=== PATIENT | male | born 1940 | race Caucasian/White ===

== ENCOUNTER 2016-10-23 05:44 | Inpatient (IN) | payer MEDICARE ==
--- NOTE | 2016-10-23 06:52 | RADIOLOGY REPORT ---
HISTORY: Fall, right hip pain COMPARISON: None. FINDINGS: 3 views of the right hip(s) and pelvis obtained. There is an oblique fracture of the right distal fem oral diaphysis with lateral displacement by up to 2 cm. There is posterior displacement by up to 1.8 cm. There is a dynamic screw and short intramedullary nail in the proximal right femur. There is like ly an old fracture deformity of the right femoral neck. Multiple phleboliths are noted in the pelvis. There is multilevel degenerative disc disease in the lower lumbar spine. IMPRESSION: 1. Partially imaged distal femoral diaphyseal fracture with lateral displacement x 2 cm and posterior displacement x 1.8 cm. Consider dedicated right femur radiographs for further evaluation. 2. Right proximal femur short intramedullary nail and dynamic screw appear intact. There is an old fr acture deformity of the right femoral neck which decreases sensitivity for acute fractures. No defini te acute right hip fracture is identified but if there is clinical concern for acute fracture, consid er CT pelvis for further evaluation. Final Electronic Signature: This report was electronically signed by Rajat Orellana MD on 10/23/2016 6 :50 AM. [email or web address] /
[2016-10-23 07:14] LABS: BASOPHILS 0.1 % (0.0-2.0); EOSINOPHILS 1.4 % (0.0-6.0); EOSINOPHILS# 0.1 X 10^3uL (0.0-0.4); HEMATOCRIT 38.7 % (42.0-54.0); HEMOGLOBIN 12.9 g/dL (14.0-18.0); LYMPHOCYTES 8.4 % (20.0-40.0); LYMPHOCYTES# 0.8 X 10^3uL (0.8-3.8); MEAN CELL VOLUME 87.4 fL (80.0-100.0); MEAN CORPUS. HGB CONCENTRATION 33.3 g/dL (32.0-36.0); MEAN CORPUSCULAR HEMOGLOBIN 29.1 pg (29.0-35.0); MONOCYTES 6.5 % (2.0-10.0); MONOCYTES# 0.6 X 10^3uL (0.2-1.0); NEUTROPHILS 83.6 % (54.0-75.0); NEUTROPHILS# 8.3 X 10^3uL (2.6-6.7); PLATELET COUNT 373 X 10^3uL (130-440); RED BLOOD COUNT 4.43 X 10^6uL (4.20-6.10); RED CELL DISTRIBUTION WIDTH 12.3 % (11.5-14.5); WHITE BLOOD COUNT 9.8 X 10^3uL (3.9-10.7)
[2016-10-23 07:17] LABS: BLOOD UREA NITROGEN 9 mg/dL (9-20); CALCIUM 8.5 mg/dL (8.4-10.2); CHLORIDE 102 mmol/L (98-107); CREATININE 0.6 mg/dL (0.7-1.3); EST GLOMERULAR FILTRATION RATE > 60 mL/min; GLUCOSE 122 mg/dL (70-100); POTASSIUM 3.4 mmol/L (3.5-5.1); SODIUM 140 mmol/L (137-145)
[2016-10-23 07:25] LABS: INR 1.2
[2016-10-23 08:39] LABS: ABO GROUP TYPE A
[2016-10-23 08:40] LABS: ALBUMIN 3.8 g/dL (3.5-5.0); ALKALINE PHOSPHATASE 86 U/L (38-126); ALT 16 U/L (21-72); ANTIBODY SCREEN NEGATIVE; AST 33 U/L (17-59); BILIRUBIN, DIRECT 0.2 mg/dL (0.0-0.4); BILIRUBIN, TOTAL 1.1 mg/dL (0.2-1.3); RH TYPE POSITIVE; TOTAL PROTEIN 7.9 g/dL (6.3-8.2)
--- NOTE | 2016-10-23 09:00 | RADIOLOGY REPORT ---
HISTORY: Knee pain after fall. COMPARISON: None. FINDINGS: 3 views of the right knee were performed. There is a mildly displaced spiral fracture of the distal right femoral metadiaphysis with mild varus angulation. There is moderate associated soft tissue swelling. There are severe tricompartmental deg enerative changes with subchondral sclerosis, robust osteophyte formation, asymmetric widening and na rrowing. IMPRESSION: Mildly displaced oblique fracture of the distal right femoral metadiaphysis with mild varus angulatio n. Final Electronic Signature: This report was electronically signed by Ge Capps MD on 10/24/19 8:58 AM. paula /
--- NOTE | 2016-10-23 09:03 | RADIOLOGY REPORT ---
HISTORY: Knee pain after fall. COMPARISON: None. FINDINGS: 2 views of the right femur were performed. There is a mildly displaced fracture of the distal right femoral metadiaphysis with approximately 2 c m of impaction and mild varus angulation. There is moderate associated soft tissue swelling. There is an intramedullary nader in the proximal right femur with associated postsurgical/posttraumatic changes in the intertrochanteric region. The bony pelvis is intact. The soft tissues appear unremarkable. IMPRESSION: Mildly displaced, impacted acute fracture of the right femoral distal metadiaphysis with mild associ ated varus angulation. Final Electronic Signature: This report was electronically signed by Ge Capps MD on 10/24/19 17 9:01 AM. paula /
[2016-10-23] MEDS ORDERED: BACITRACIN 50,000 UNITS VIAL IM ONE ×2 (10:35→15:27)
[2016-10-23] MEDS ORDERED: BUPIVACAINE/EPI 0.25% 1 VIAL VIAL ONE (10:35)
[2016-10-23] MEDS ORDERED: BACITRACIN 14 APP/14 GM TUBE TOPICAL ONE (10:36)
[2016-10-23] MEDS ORDERED: NORMAL SALINE FLUSH 10 ML ONE (10:36)
[2016-10-23] MEDS ORDERED: ACETAMINOPHEN 1,000 MG/100 ML VIAL IV ONE (11:17)
--- NOTE | 2016-10-23 11:20 | PREOP HISTORY & PHYSICAL ---
DATE OF ADMISSION: 10/23/16 ATTENDING PHYS: Rosemary Carrillo MD DATE OF ADMISSION: 10/23/16 PRIMARY CARE PHYSICIAN: Jackie Rayo MD CHIEF COMPLAINT: Femur fracture. Medicine consulted for preoperative clearance. HISTORY OF PRESENT ILLNESS: The patient is a 76-year-old gentleman who has not been seen in our clinic for about a year, with history of hypertension, remote cerebrovascular accident with subsequent right-sided weakness, who was in his usual state of health until this morningg when he fell out of bed and could not get back up. The patient typically uses a wheelchair for ambulation. He states that he was in between his wheelchair and the bed trying to transfer when he fell to the ground and was kind of lodged there. He had some pain but nothing significant, but mainly could not get up so he used his life line and ambulance brought him in for further evaluation. Found to have femur fracture. Of note, the patient again has not been seen for over a year in our clinic and over the past 3-6 months he has stopped his home blood pressure medications. The patient states he had been tapering down on the medicines due to low blood pressure, but his insurance, there were some concerns and he stopped having delivery of medications to his home about 3-6 months ago. The patients blood pressure was noted to be quite elevated when he first arrived here to the emergency department. PAST MEDICAL HISTORY: 1. 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 At baseline he needs a wheelchair for mobility. 2. Hypertension. 3. Chronic venous insufficiency. 4. History of peptic ulcer related to aspirin usage. 5. Rheumatoid arthritis. 6. Osteoarthritis. 7. He does have a history previously of chronic venous stasis ulcers although this does not look like to be of concern for the last few years. FAMILY HISTORY: The patients father at age 77 related to intestinal cancer. His mother at age 62 related to cervical cancer. He does have a son who was in his 40s. SOCIAL HISTORY: The patient is . He does live alone. He moves around his house by wheelchair. He is a former smoker. He quit in 1998 after his stroke. He also states he is a former alcohol user, again quit around the time of his stroke, although chart notes dates that he was drinking hard liquor. ALLERGIES: Aspirin related to past history of gastric ulcer on aspirin. Not true allergy. PAST SURGICAL HISTORY: Includes 1. Hip replacement related to a right hip fracture in 2005. 2. Tonsillectomy. MEDICATIONS: Currently the patient is only taking Tylenol 1000 mg every 6 hours. He has stopped all of his blood pressure medications. REVIEW OF SYSTEMS GENERAL: The patient denies any fever, fatigue, no significant symptoms to cause the fall. HEENT: He denies headache. No other injuries. No nasal congestion, no sore throat. NECK: No pain. CARDIOVASCULAR: The patient denies any chest pain. He does have elevated blood pressure off medications. No palpitations. RESPIRATORY: He denies any cough or shortness of breath. ABDOMEN: Denies any nausea or vomiting, abdominal pain. MUSCULOSKELETAL: Positive for right-sided injury with pain and deformity. SKIN: The patient states his swelling is much improved from previous. No significant rashes at this time. NEUROLOGIC: The patient is at baseline with his right sided weakness but no altered mentation. PSYCHIATRIC: The patient denies any anxiety or depression. HEMATOLOGIC: The patient has had a past history of anemia. Again, no recent labs for over a year ago besides today. PHYSICAL EXAMINATION VITAL SIGNS: The patient was afebrile, temperature of 98.2, blood pressure 165/ 92, pulse of 96, respirations were 20, 92% on room air. His blood pressure did go up to 200s/100s and then 181/93. On recheck most recently, however, his blood pressure was 141/87. GENERAL: The patient is alert and oriented. Appears comfortable in bed. Kind of awkward positioning, but no acute distress. HEENT: Conjunctiva normal. Equal ocular movements. Mouth is clear. He has poor dentition. NECK: Appears supple. Nontender. CARDIOVASCULAR: Regular rate and rhythm. LUNGS: Normal breath sounds. ABDOMEN: Bowel sounds are normal, soft, nontender. MUSCULOSKELETAL: The patient has obvious joint deformities related to underlying rheumatoid arthritis in the left wrist and MCPs on the hand are significantly deformed including bilateral knees with some change in appearance. He has tenderness and fullness to the right distal thigh. SKIN: The patient had bilateral DAO hose. Did not fully assess his feet. NEUROLOGIC: He has baseline numbness on right side but can feel light touch as well as weakness on that right side. PSYCHIATRIC: The patient is alert and oriented times 3. He is calm. He is very reasonable with discussions regarding plan of care. LABORATORY DATA: The patient has had a CBC which showed white count of 9.8, hemoglobin 12.9, hematocrit 39.8. He does not have a recent CBC to compare. INR was 1.2. Basic metabolic panel: Sodium 140, potassium 3.4, chloride 102, carbon dioxide 28, glucose 122, BUN 9, creatinine 0.6, calcium 8.5. He is A positive blood type, anti body negative. Hepatic panel shows ALT of 16, albumin 3.8, alkaline phosphatase 86, AST 33, total bilirubin 1.1, direct bilirubin 0.2. IMAGING: He had a hip/pelvis x-ray which showed partially imaged femoral diaphyseal fracture with lateral displacement. Right proximal femur short intramedullary nail and dynamic screw appears intact. Old fracture of right femoral neck. A mildly displaced fracture of the distal right femoral metadiaphysis with mild varus angulation. Femur fracture again similar. EKG: Shows normal sinus rhythm with a left axis deviation. I do not see any others in the system for comparison. ASSESSMENT AND PLAN: This is a 76-year-old patient with history of uncontrolled hypertension and remote cerebrovascular accident, osteo and rheumatoid arthritis, who is presenting with a right femur fracture. 1. Femur fracture: Per orthopedics, the patients plan of care would either be surgical intervention versus long leg cast. I did speak personally with Dr. Bean relaying my concerns as the patient is high risk for surgery including high risk for surgery at our facility related to his previous history and underlying rheumatological disease/previous hip fx/replacement and his current uncontrolled hypertension. I do anticipate with his past medical history that he potentially have some complications related to surgery and may need a more prolonged rehabilitation especially related to his underlying right-sided weakness. 2. Hypertension: The patient was previously on Lisinopril, hydrochlorothiazide , amlodipine and metoprolol which he has self discontinued over the last 3-6 months partially because he had been weaning medication for low blood pressure but as well as he has lost his insurance and was no longer being delivered to his home. Blood pressure was elevated initially and has come down to a more normal level at this time. Would recommend close monitoring of blood pressure and treating if noticing return of elevations. Patient will likely need his previous medications restarted in postoperative time. In past patient was on metoloprolol 100 mg twice a day. Could start with just 25 to 50 mg twice a day. The patient may need additional medications including his lisinopril and hydrochlorothiazide and amlodipine. With his past history of hemorrhagic stroke and his elevated blood pressure he is at an increased risk of potential recurrent cerebrovascular incident, currently asymptomatic right now but will need close monitoring. 3. History of CVA: Again this is a hemorrhagic stroke in 1998. He had subsequent right-sided weakness and numbness. The patient typically ambulates with a wheelchair. He does live alone in his home. Will likely have a complicated postoperative and rehab related to this baseline mobility concerns. Will need to closely monitor his anticoagulation postoperative and DVT prophylaxis postoperatively with his past history of hemorrhagic stroke. 4. Osteoarthritis and rheumatoid arthritis: The patient has multiple joint deformities related to his underlying arthritic areas. With this rheumatologic issue concern for potential healing and other concerns related to surgery. Again, do feel the patient is pretty high risk. Currently he is being managed with 4 g of Tylenol daily for pain control. Will need to monitor what his pain needs are per orthopedics. 5. History of peptic ulcer related to high aspirin dose: This has been over 10 years ago at this time. Would continue to avoid NSAIDs if able. 6. Anemia: The patient slightly anemic likely related to acute femur fracture. Do not have a recent CBC to compare. The patient has had a blood transfusion in the past related to his peptic ulcer and would be willing to have transfusion if needed. 7. Slightly elevated INR: Still within normal limits but unclear why it is 1.2. Likely related to his regular Tylenol usage and past alcohol intake, although LFTs are normal at this time. 8. Disposition: Again I have discussed with the patient and orthopedics as well as anesthesia my concerns for the patient to have surgery at our facility and I do feel he is somewhat high risk. The patient is full code. If surgery is done at our facility I do anticipate he will need ongoing blood pressure monitoring and potentially restarting of medications as well as he is going to need a probable prolonged rehabilitation stay related to his baseline right- sided weakness as well as rheumatoid arthritis. Copy to MD ANGELIKA Greenwood
[2016-10-23] MEDS ORDERED: ceFAZolin 1 GM/10 ML VIAL ONE ×4 (11:28→22:00)
[2016-10-23] MEDS ORDERED: EPHEDrine SULFATE 50 MG/ML VIAL ONE (11:29)
[2016-10-23] MEDS ORDERED: NORMAL SALINE 100 ML IV ONE (11:29)
[2016-10-23] MEDS ORDERED: MORPHINE SULFATE/PF 10 MG/10 ML VIAL ONE (11:29)
[2016-10-23] MEDS ORDERED: FENTANYL 100 MCG/2 ML VIAL ONE (11:29)
[2016-10-23] MEDS ORDERED: LABETALOL HCL 100 MG/20 ML VIAL IV ONE (11:30)
--- NOTE | 2016-10-23 11:30 | ER PHYSICIAN DOCUMENTATION ---
Physician Documentation [facility] Name:Josse Cantu Age:76 yrs Sex:Male :1940 Arrival Date:10/23/2016 Time:05:44 Bed4 Private MD:Jackie Rayo ED, John Disposition: 10/23/16 10:45 Admit ordered for Mohit Bean. Preliminary diagnosis is Femur Closed Fracture. - Bed requested for Medical/Surgical. - Condition is Serious. - Problem is new. - Symptoms are unchanged. 23 HR OBS Yes HPI: 10/23 07:00 This 76 yrs old Male presents to ER via EMS with complaints of Hip Pain - jm RIGHT. 07:00 This 76 yrs old Male presents to ER via EMS with complaints of Hip Pain - jm RIGHT. 07:00 The patient or guardian reports an injury, pain. sustained from a fall, out of bed. The jm complaints affect the right hip. Onset: The symptom(s)/episode began/occurred just prior to arrival. Modifying factors: the symptoms are aggravated by nothing. Associated signs and symptoms: Pertinent negatives: abdominal pain. Severity of symptoms: in the emergency department the symptoms are unchanged. The patient has not experienced similar symptoms in the past. The patient has not recently seen a physician. Pt fell out of bed and couldn't get back up, so he hit his life line and EMS brought him here. . Historical: - Allergies: No known drug Allergies; - Home Meds: 1. None - PMHx: Hypertension; stroke; - PSHx: Hip surgery; - Tetanus: < 10 years. - Ebola Screening: : Patient denies exposure to infectious person. Patient denies travel to an Ebola-affected area in the 21 days before illness onset. . - Immunization history: Flu Vaccine None. - Social history: Smoking status: Patient states was never smoker of tobacco. Patient/guardian denies using alcohol. ROS: 07:04 Constitutional: Negative for fatigue, fever. jm 07:04 ENT: Negative for sinus congestion, sinus pain. 07:04 Neck: Negative for injury or acute deformity. 07:04 Cardiovascular: Negative for chest pain. 07:04 Respiratory: Negative for cough, shortness of breath. 07:04 Abdomen/GI: Negative for nausea, vomiting. 07:04 MS/extremity: Positive for injury or acute deformity, pain. 07:04 Skin: Negative for rash, swelling. 07:04 Neuro: Negative for dizziness, loss of consciousness. 07:04 Psych: Negative for anxiety, depression. 07:04 Hematologic/Lymphatic: Negative for anemia, abnormal bleeding. Exam: 07:05 Constitutional: The patient appears alert, awake. cam 07:05 Eyes: Periorbital structures: appear normal, Conjunctiva: normal. 07:05 ENT: Mouth: is normal, Voice: is normal. 07:05 Neck: C-spine: appears grossly normal, ROM/movement: is normal. 07:05 Chest/axilla: Inspection: normal, Palpation: is normal, no crepitus. 07:05 Cardiovascular: Rate: normal, Rhythm: regular. 07:05 Respiratory: Respirations: normal, Breath sounds: are normal. 07:05 Abdomen/GI: Bowel sounds: normal, Palpation: abdomen is soft and non-tender. 07:05 Back: pain, is absent, vertebral tenderness, is not appreciated. 07:05 Musculoskeletal/extremity: Pulses: are normal with no appreciated deficits, fullness to the R distal thigh. Pulses normal. . 07:05 Skin: Appearance: Color: pink, no rash present. 07:05 Neuro: Sensation: numbness, that is moderate, of the right leg. 07:05 Psych: Behavior/mood is pleasant, cooperative, Affect is calm. Vital Signs: 06:02 BP 165 / 92; Pulse 96; Resp 20; Temp 98.2; Pulse Ox 93% on R/A; Pain 0/10; lb 07:10 BP 181 / 93 (auto/); Pulse 90; Resp 15; Pulse Ox 91% on R/A; Pain 1/10; tg 09:10 BP 141 / 87; Pulse 84; Resp 16; Pulse Ox 91% on R/A; tg 11:10 BP 140 / 85; Pulse 82; Resp 16; Pulse Ox 91% on R/A; Weight 90.72 kg; Height 6 ft. 0 sj in. (182.88 cm); Pain 1/10; 11:11 BP 140 / 85 (auto/); tg 11:14 Pulse Ox 93% ; tg 11:10 Body Mass Index 27.12 (90.72 kg, 182.88 cm) MDM: 06:17 Patient medically screened. cam 07:10 Differential diagnosis: femoral shaft fracture. Data reviewed: vital signs, nurses jm notes, old medical records, lab test result(s), EKG, radiologic studies, and as a result, I will admit patient, initiate a consult, with an orthopedic surgeon. Test interpretation: by ED physician or midlevel provider: plain radiologic studies. Counseling: I had a detailed discussion with the patient and/or guardian regarding: the historical points, exam findings, and any diagnostic results supporting the discharge/admit diagnosis, lab results, radiology results, the need for further work-up and treatment in the hospital. Physician consultation: Mohit Bean DO regarding admission, and will see patient in ED. ED course: Pt w distal femur fx. . 09:19 EKG attached tg 10/23 07:23 Order name: CBC AUTO DIF, MDIF/RMOR IF IND [facility] 10/23 07:27 Order name: PROTIME/INR [facility] 10/23 07:43 Order name: BASIC METABOLIC PANEL [facility] 10/23 08:40 Order name: ABO GROUP [facility] 10/23 08:40 Order name: RH TYPE [facility] 10/23 08:40 Order name: ANTIBODY SCREEN [facility] 10/23 08:41 Order name: HEPATIC PANEL [facility] 10/24 06:40 Order name: HGB HCT PANEL [facility] 10/24 06:40 Order name: PLATELET COUNT [facility] 10/24 17:20 Order name: CBC AUTO DIF, MDIF/RMOR IF IND [facility] 10/25 04:42 Order name: OCCULT BLOOD (1-3 SAMPLES) [facility] 10/25 06:20 Order name: HGB HCT PANEL [facility] 10/23 06:55 Order name: HIP; UNI W/PE[place] [address] [place] [id number] [facility] 10/23 08:33 Order name: FEMUR; [address] [place] [id number] [facility] 10/23 08:42 Order name: KNEE; [address] [place] [id number] [facility] 10/23 07:00 Order name: Iv Saline Lock; Complete Time: 07:20 10/23 07:00 Order name: 12-lead EKG; Complete Time: 07:33 10/23 07:00 Order name: NPO; Complete Time: 07:20 Dispensed Medications: 07:24 Drug: NS 0.9% 1000 ml; Route: IV; Rate: bolus; Site: left antecubital; tg 11:27 Follow up: IV Status: Infusion continued upon admission; IV Intake: 500ml tg 11:10 Drug: Ofirmev ; MAX of 1000 mg, give 20 mg/kg; Route: IV; Rate: calculated rate; sj Infused Over: 15 mins; Site: left antecubital; Follow up: IV Status: Completed infusion; IV Intake: 100ml tg 11: Drug: NS 0.9% 100 ml, Ancef 1 grams; Route: IVPB; Site: left antecubital; Delivery: tg Pump; Follow up: IV Status: Infusion continued upon admission; IV Intake: 10ml tg Signatures: Arturo Albetro RN RN tg Ke Farrell MD MD jm Janzen, Sarah sj Bollock, Lynda lb
--- NOTE | 2016-10-23 11:30 | ER NURSING DOCUMENTATION ---
Nurse's Notes [facility] Name:Josse Cantu Age:76 yrs Sex:Male :1940 Arrival Date:10/23/2016 Time:05:44 Bed4 Private MD:Jackie Rayo Diagnosis:Femur Closed Fracture Presentation: 10/23 05:56 Presenting complaint: EMS states: pt fell out of bed, c/o right hip pain. lb 05:56 Acuity: RAFAEL 3 lb 05:59 Transition of care: Home. Notified ED Physician of Bud Geronimo notified. lb 05:59 Method Of Arrival: EMS: 410 lb 08:52 Acuity: RAAFEL 2 tg Triage Assessment: 06:01 General: Appears in no apparent distress, unkempt, Behavior is appropriate for age, lb pleasant. Pain: Denies pain. Historical: - Allergies: No known drug Allergies; - Home Meds: 1. None - PMHx: Hypertension; stroke; - PSHx: Hip surgery; - Tetanus: < 10 years. - Ebola Screening: : Patient denies exposure to infectious person. Patient denies travel to an Ebola-affected area in the 21 days before illness onset. . - Immunization history: Flu Vaccine None. - Social history: Smoking status: Patient states was never smoker of tobacco. Patient/guardian denies using alcohol. Screenin:02 Infectious Disease Risk None. Abuse screen: Denies threats or abuse. Denies injuries lb from another. Nutritional screening: No deficits noted. Fall Risk Fall in past 12 months (25 points). Gait- Impaired (20 pts.). Assessment: 06:02 See Triage Assessment done by same RN. lb Vital Signs: 06:02 BP 165 / 92; Pulse 96; Resp 20; Temp 98.2; Pulse Ox 93% on R/A; Pain 0/10; lb 07:10 BP 181 / 93 (auto/); Pulse 90; Resp 15; Pulse Ox 91% on R/A; Pain 1/10; tg 09:10 BP 141 / 87; Pulse 84; Resp 16; Pulse Ox 91% on R/A; tg 11:10 BP 140 / 85; Pulse 82; Resp 16; Pulse Ox 91% on R/A; Weight 90.72 kg; Height 6 ft. 0 sj in. (182.88 cm); Pain 1/10; 11:11 BP 140 / 85 (auto/); tg 11:14 Pulse Ox 93% ; tg 11:10 Body Mass Index 27.12 (90.72 kg, 182.88 cm) ED Course: 05:45 Patient arrived in ED. em2 05:45 Jackie Rayo MD is Private Physician. em2 05:56 Allison Orona is Primary Nurse. lb 05:58 Triage completed. lb 06:03 Valuables Remains with patient Patient has correct armband on for positive lb identification. Placed in gown. Bed in low position. Call light in reach. Side rails up X2. 06:17 Ke Farrell MD is Attending Physician. jm 06:34 Port Xray Completed. ds2 07:01 Inserted peripheral IV: 20 gauge in left forearm and blood collected. lb 07:33 Diet: Patient is NPO. tg 07:33 EKG done. (by ED staff). Reviewed by Ke Farrell MD. tg 08:33 FEMUR; [address] [place] [id number] In Process Unspecified. EDMS 08:42 KNEE; [address] [place] [id number] In Process Unspecified. EDMS 08:43 Port Xray Completed. marcus 09:19 EKG attached tg 10:43 Mohit Bean DO is Admitting Physician. cam Administered Medications: 07:24 Drug: NS 0.9% 1000 ml; Route: IV; Rate: bolus; Site: left antecubital; tg 11:27 Follow up: IV Status: Infusion continued upon admission; IV Intake: 500ml tg 11:10 Drug: Ofirmev ; MAX of 1000 mg, give 20 mg/kg; Route: IV; Rate: calculated rate; Infused Over: 15 mins; Site: left antecubital; 11:27 Follow up: IV Status: Completed infusion; IV Intake: 100ml tg 11:28 Drug: NS 0.9% 100 ml, Ancef 1 grams; Route: IVPB; Site: left antecubital; Delivery: tg Pump; 11:28 Follow up: IV Status: Infusion continued upon admission; IV Intake: 10ml tg Intake: 11:27 IV: 500ml; Total: 500ml. tg 11:27 IV: 100ml; Total: 600ml. tg 11:28 IV: 10ml; Total: 610ml. tg Output: 07:56 Urine: 500ml (Voided); Total: 500ml. tg 11:14 Urine: 250ml (Voided); Total: 750ml. Outcome: 10:45 Decision to Admit by Provider. cam 11:14 Admitted to OR accompanied by nurse, via stretcher, with chart. tg 11:14 Condition: unchanged 11:14 Discharge Assessment: Patient awake and alert. 11:14 Instructed on need to admit 11:29 Patient left the ED. tg Signatures: Dispatcher [employer] EDArturo Olson RN RN tg Ke Farrell MD MD jm Abbott, Laura lea Meinking-hanna, Ary em2 Shana Barrientos2 Minoo Miranda, Allison corral
[2016-10-23] MEDS ORDERED: TETRACAINE HCL 1% 20 MG/2 ML AMP ONE (11:35)
[2016-10-23] MEDS ORDERED: FENTANYL 100 MCG/2 ML VIAL IV PRN (16:12)
[2016-10-23] MEDS ORDERED: DIPHENHYDRAMINE 50 MG/ML VIAL IV PRN (16:12)
[2016-10-23] MEDS ORDERED: ONDANSETRON HCL 4 MG/2 ML VIAL IV PRN ×2 (16:12→17:37)
[2016-10-23] MEDS ORDERED: NALOXONE HCL 0.4 MG/ML VIAL IV PRN ×3 (16:12)
[2016-10-23] MEDS ORDERED: NALBUPHINE HCL 10 MG/ML AMP IV PRN (16:12)
[2016-10-23] MEDS ORDERED: LACTATED RINGERS 1,000 ML IV SCH (16:12)
[2016-10-23] MEDS ORDERED: DIPHENHYDRAMINE 25 MG CAPSULE PO PRN (16:12)
[2016-10-23] MEDS ORDERED: HYDROcodone/APAP 5/325 MG 1 TAB TABLET PO PRN (17:37)
[2016-10-23] MEDS: ASCORBIC ACID 500 MG TABLET PO SCH ×2 (20:26→20:42)
[2016-10-23] MEDS: MULTIVITAMINS THERAPEUTIC 1 TABLET PO SCH (20:26)
[2016-10-23] MEDS: FOLIC ACID 1 MG TABLET PO SCH (20:26)
[2016-10-23] MEDS: ceFAZolin 1 GM in NORMAL SALINE MINI-BAG+ 100 ML IV SCH (21:58)
[2016-10-23] MEDS ORDERED: ceFAZolin 1 GM in NORMAL SALINE MINI-BAG+ 100 ML IV SCH (23:00)
[2016-10-23] MEDS: LACTATED RINGERS 1,000 ML IV SCH (23:46)
[2016-10-24] MEDS: ceFAZolin 1 GM in NORMAL SALINE MINI-BAG+ 100 ML IV SCH ×2 (05:05→14:11)
[2016-10-24] MEDS ORDERED: ceFAZolin 1 GM/10 ML VIAL ONE ×2 (05:13→14:20)
[2016-10-24] MEDS ORDERED: NORMAL SALINE 100 ML IV ONE ×2 (05:13→14:20)
[2016-10-24 06:22] LABS: HEMATOCRIT 23.2 % (42.0-54.0)
--- NOTE | 2016-10-24 07:45 | OPERATIVE REPORT ---
DATE OF SURGERY: 10/23/16 SURGEON: Mohit Bean DO ANESTHESIA: Spinal. PREOPERATIVE DIAGNOSIS: Right distal femur supracondylar fracture. POSTOPERATIVE DIAGNOSIS: Right distal femur supracondylar fracture. OPERATION PERFORMED: Right femur open reduction, internal fixation. ESTIMATED BLOOD LOSS: 500 mL. COMPLICATIONS: None. ORTHOPEDIC IMPLANT: Synthes 1.7 mm cable with crimp and a 4.5 mm LCP condylar plate. PROCEDURE NOTE: The patient was brought to the operating room suite and after administration of spinal anesthesia the right lower extremity was prepped and draped in a sterile fashion. An incision was made over the lateral aspect of the distal femur and dissection was carried down to the iliotibial band which was incised. Any bleeders were cauterized with a large cautery device. The fracture was identified and the plate was slid up on the femur and was positioned distally with orthogonal views obtained with fluoroscopic imaging to assure proper placement of the plate down the lateral long axis of the femur. The 7.3 mm screw was inserted first after first inserting spinal needles through threaded guides. Five K-wires were inserted through these threaded guides, followed by insertion of the 5-0 and the 7.3 mm screws in the condyle. Again, fluoroscopic imaging was confirmed to assure that the screws were parallel with the distal femur at the joint line. The plate was then used to attempt to reduce the fracture with Vabruche retractors; however, this was unsuccessful, therefore a small incision was made proximally and a plate manipulation device was inserted with 1 single cortices screw proximal to the plate, and it was attempted to push the plate distally to reduce the fracture; however, this was not successful. Therefore, a cable system was utilized to reduce the fracture site while pushing the plate through the proximal hole distally. The cerclage cable was tightened down and reduced the fracture. The plate was then secured into place with both locking and non-locking screws after first drilling and measuring the depth. The incision sites were copiously irrigated with bacitracin infused with normal saline and closed in a stepwise fashion utilizing #1 Vicryl for the IT band, followed by 0 Vicryl, followed by 2 -0 Vicryl, followed by genoveva at the level of the skin. The incision site was also injected with 0.25% bupivacaine with epinephrine prior to incision and was dressed with bacitracin MTDD
[2016-10-24] MEDS: FOLIC ACID 1 MG TABLET PO SCH (08:39)
[2016-10-24] MEDS: ACETAMINOPHEN 325 MG TABLET PO PRN ×2 (08:39→14:11)
[2016-10-24] MEDS: ASCORBIC ACID 500 MG TABLET PO SCH ×2 (08:39→20:38)
[2016-10-24] MEDS: MULTIVITAMINS THERAPEUTIC 1 TABLET PO SCH (08:39)
--- NOTE | 2016-10-24 10:37 | PROGRESS NOTE: Orthopedics ---
Orthopedic PN Subjective - Subjective Principal Diagnosis: s/p right femur orif Post-op Day: 1 Interval history: Resting. Pain controlled. Ortho PN Objective Exam - Latest Vital Signs and I&O Latest Vital Signs/I&O: Vital Signs Temp 37.9 C H 10/24/16 06:19 Pulse 104 H 10/24/16 06:19 Resp 18 10/24/16 09:00 BP 118/64 10/24/16 06:19 Pulse Ox 96 10/24/16 09:00 Intake & Output 10/23/16 10/24/16 10/24/16 17:59 05:59 17:59 Intake Total 2650 3450 Output Total 300 550 Balance 2350 2900 Weight 86.183 kg Intake: IV 2600 1900 Left Antecubital 2600 1900 Oral 50 1550 Output: Urine 300 550 Uretheral (Donaldson) 100 Other: Urine Appearance Clear Clear Clear Urine Color Yellow [place] Yellow Uretheral (Donaldson) Yellow Voiding Method Indwelling Catheter Indwelling Catheter Indwelling Catheter # Bowel Movements 0 - Post-Operative Exam Post-op Day: 1 Dressing Status: dry & intact Distal Pulses: +2 Active Motor: intact Sensation: other (at baseline) Dayami's sign: Negative Calf tenderness: no Weight bearing status: partial (for transfer balance) - Lab Labs: Laboratory Last Values WBC 9.8 X 10^3uL (3.9-10.7) 10/23/16 07:00 RBC 4.43 X 10^6uL (4.20-6.10) 10/23/16 07:00 Hgb 8.0 g/dL (14.0-18.0) L 10/24/16 05:55 Hct 23.2 % (42.0-54.0) L 10/24/16 05:55 MCV 87.4 fL (80.0-100.0) 10/23/16 07:00 MCH 29.1 pg (29.0-35.0) 10/23/16 07:00 MCHC 33.3 g/dL (32.0-36.0) 10/23/16 07:00 RDW 12.3 % (11.5-14.5) 10/23/16 07:00 Plt Count 294 X 10^3uL (130-440) 10/24/16 05:55 MPV 6.0 fL (7.4-10.4) L 10/23/16 07:00 Neutrophils % 83.6 % (54.0-75.0) H 10/23/16 07:00 Lymphocytes % 8.4 % (20.0-40.0) L 10/23/16 07:00 Eosinophils % 1.4 % (0.0-6.0) 10/23/16 07:00 Basophils % 0.1 % (0.0-2.0) 10/23/16 07:00 Neutrophils # 8.3 X 10^3uL (2.6-6.7) H 10/23/16 07:00 Lymphocytes # 0.8 X 10^3uL (0.8-3.8) 10/23/16 07:00 Monocytes 6.5 % (2.0-10.0) 10/23/16 07:00 Monocytes # 0.6 X 10^3uL (0.2-1.0) 10/23/16 07:00 Eosinophils # 0.1 X 10^3uL (0.0-0.4) 10/23/16 07:00 Basophils # 0.0 X 10^3uL (0.0-0.1) 10/23/16 07:00 PT 16.9 sec (13.0-16.6) H 10/23/16 07:00 INR 1.2 10/23/16 07:00 Sodium 140 mmol/L (137-145) 10/23/16 07:00 Potassium 3.4 mmol/L (3.5-5.1) L 10/23/16 07:00 Chloride 102 mmol/L (98-107) 10/23/16 07:00 Carbon Dioxide 28 mmol/L (22-30) 10/23/16 07:00 BUN 9 mg/dL (9-20) 10/23/16 07:00 Creatinine 0.6 mg/dL (0.7-1.3) L 10/23/16 07:00 GFR Calculation > 60 mL/min 10/23/16 07:00 Glucose 122 mg/dL (70-100) H 10/23/16 07:00 Calcium 8.5 mg/dL (8.4-10.2) 10/23/16 07:00 Total Bilirubin 1.1 mg/dL (0.2-1.3) 10/23/16 07:00 Direct Bilirubin 0.2 mg/dL (0.0-0.4) 10/23/16 07:00 AST 33 U/L (17-59) 10/23/16 07:00 ALT 16 U/L (21-72) L 10/23/16 07:00 Alkaline Phosphatase 86 U/L (38-126) 10/23/16 07:00 Total Protein 7.9 g/dL (6.3-8.2) 10/23/16 07:00 Albumin 3.8 g/dL (3.5-5.0) 10/23/16 07:00 ABO Group Type a 10/23/16 07:00 Rh Factor Positive 10/23/16 07:00 Antibody Screen Negative 10/23/16 07:00 Assessment and Plan-Ortho - Date of Encounter Date of Encounter: 10/24/16 (1) Supracondylar fracture of right femur Status: Acute Assessment and plan: Will get H&H for later today. If significant drop, I would recommend transfusion. Nutrition. DVT PPx. Medicine following. Current Visit: Yes Quality Questions - VTE Prophylaxis Assessment VTE Present on Admission?: No Patient at risk for venous thromboembolism?: Yes VTE Risk Level: High Risk Pharmaceutical VTE prophylaxis contraindication reason: not indicated Mechanical VTE prophylaxis contraindication reason: not indicated (1) Supracondylar fracture of right femur Qualifiers: Encounter type: initial encounter Fracture type: closed Qualified Code(s): S72.451A - Displaced supracondylar fracture without intracondylar extension of lower end of right femur, initial encounter for closed fracture
[2016-10-24] MEDS: ENOXAPARIN SODIUM 40 MG/0.4 ML SYR SUBCUT SCH (13:35)
[2016-10-24] MEDS: LACTATED RINGERS 1,000 ML IV SCH (14:11)
[2016-10-24 17:17] LABS: BASOPHILS 0.1 % (0.0-2.0); EOSINOPHILS 0.2 % (0.0-6.0); HEMOGLOBIN 7.9 g/dL (14.0-18.0); LYMPHOCYTES 8.1 % (20.0-40.0); LYMPHOCYTES# 0.9 X 10^3uL (0.8-3.8); MEAN CORPUS. HGB CONCENTRATION 35.7 g/dL (32.0-36.0); MEAN CORPUSCULAR HEMOGLOBIN 30.7 pg (29.0-35.0); MEAN PLATELET VOLUME 5.6 fL (7.4-10.4); MONOCYTES 11.4 % (2.0-10.0); MONOCYTES# 1.3 X 10^3uL (0.2-1.0); NEUTROPHILS 80.2 % (54.0-75.0); NEUTROPHILS# 9.2 X 10^3uL (2.6-6.7); RED BLOOD COUNT 2.56 X 10^6uL (4.20-6.10); RED CELL DISTRIBUTION WIDTH 12.6 % (11.5-14.5); WHITE BLOOD COUNT 11.4 X 10^3uL (3.9-10.7)
[2016-10-25 06:14] LABS: HEMATOCRIT 23.3 % (42.0-54.0); HEMOGLOBIN 7.8 g/dL (14.0-18.0)
[2016-10-25] MEDS: LACTATED RINGERS 1,000 ML IV SCH ×2 (07:03→16:43)
[2016-10-25] MEDS: ASCORBIC ACID 500 MG TABLET PO SCH ×2 (08:28→20:56)
[2016-10-25] MEDS: FOLIC ACID 1 MG TABLET PO SCH (08:28)
[2016-10-25] MEDS: ENOXAPARIN SODIUM 40 MG/0.4 ML SYR SUBCUT SCH (08:29)
[2016-10-25] MEDS: MULTIVITAMINS THERAPEUTIC 1 TABLET PO SCH (08:29)
[2016-10-25] MEDS: ACETAMINOPHEN 325 MG TABLET PO PRN (08:29)
--- NOTE | 2016-10-25 19:13 | PROGRESS NOTE: Orthopedics ---
Orthopedic PN Subjective - Subjective Principal Diagnosis: s/p right femur orif Post-op Day: 2 Interval history: Resting comfortably. T-max noted: likely atelectasis. Pain controlled. Seems a little weak, but patient is not ambulatory, so based on upper extremity motion. Ortho PN Objective Exam - Latest Vital Signs and I&O Latest Vital Signs/I&O: Vital Signs Temp 37.8 C H 10/25/16 18:53 Pulse 79 10/25/16 18:16 Resp 24 10/25/16 18:16 BP 121/54 10/25/16 18:16 Pulse Ox 91 10/25/16 18:16 Intake & Output 10/25/16 10/25/16 10/26/16 05:59 17:59 05:59 Intake Total 1440 950 900 Output Total 325 350 Balance 1115 600 900 Intake: IV 1050 900 Left Antecubital 1050 900 Oral 390 950 Output: Urine 325 350 Other: Urine Appearance Clear Clear Urine Color Light Ina Straw Stool Size Small Moderate Stool Characteristics Soft Soft Liquid Liquid Brown Voiding Method Indwelling Catheter Indwelling Catheter # Bowel Movements 2 - Post-Operative Exam Post-op Day: 2 Dressing Status: dry & intact Drainage Amount: none Distal Pulses: +2 Active Motor: intact Sensation: other (at baseline.) Dayami's sign: Negative Calf tenderness: no Weight bearing status: partial (for transfer balance) Additional Exam: Needs toe/nail care with multiple very long nails. - Lab Labs: Laboratory Last Values WBC 11.4 X 10^3uL (3.9-10.7) H 10/24/16 17:00 RBC 2.56 X 10^6uL (4.20-6.10) L 10/24/16 17:00 Hgb 7.8 g/dL (14.0-18.0) L 10/25/16 06:00 Hct 23.3 % (42.0-54.0) L 10/25/16 06:00 MCV 86.0 fL (80.0-100.0) 10/24/16 17:00 MCH 30.7 pg (29.0-35.0) 10/24/16 17:00 MCHC 35.7 g/dL (32.0-36.0) 10/24/16 17:00 RDW 12.6 % (11.5-14.5) 10/24/16 17:00 Plt Count 308 X 10^3uL (130-440) 10/24/16 17:00 MPV 5.6 fL (7.4-10.4) L 10/24/16 17:00 Neutrophils % 80.2 % (54.0-75.0) H 10/24/16 17:00 Lymphocytes % 8.1 % (20.0-40.0) L 10/24/16 17:00 Eosinophils % 0.2 % (0.0-6.0) 10/24/16 17:00 Basophils % 0.1 % (0.0-2.0) 10/24/16 17:00 Neutrophils # 9.2 X 10^3uL (2.6-6.7) H 10/24/16 17:00 Lymphocytes # 0.9 X 10^3uL (0.8-3.8) 10/24/16 17:00 Monocytes 11.4 % (2.0-10.0) H 10/24/16 17:00 Monocytes # 1.3 X 10^3uL (0.2-1.0) H 10/24/16 17:00 Eosinophils # 0.0 X 10^3uL (0.0-0.4) 10/24/16 17:00 Basophils # 0.0 X 10^3uL (0.0-0.1) 10/24/16 17:00 PT 16.9 sec (13.0-16.6) H 10/23/16 07:00 INR 1.2 10/23/16 07:00 Sodium 140 mmol/L (137-145) 10/23/16 07:00 Potassium 3.4 mmol/L (3.5-5.1) L 10/23/16 07:00 Chloride 102 mmol/L (98-107) 10/23/16 07:00 Carbon Dioxide 28 mmol/L (22-30) 10/23/16 07:00 BUN 9 mg/dL (9-20) 10/23/16 07:00 Creatinine 0.6 mg/dL (0.7-1.3) L 10/23/16 07:00 GFR Calculation > 60 mL/min 10/23/16 07:00 Glucose 122 mg/dL (70-100) H 10/23/16 07:00 Calcium 8.5 mg/dL (8.4-10.2) 10/23/16 07:00 Total Bilirubin 1.1 mg/dL (0.2-1.3) 10/23/16 07:00 Direct Bilirubin 0.2 mg/dL (0.0-0.4) 10/23/16 07:00 AST 33 U/L (17-59) 10/23/16 07:00 ALT 16 U/L (21-72) L 10/23/16 07:00 Alkaline Phosphatase 86 U/L (38-126) 10/23/16 07:00 Total Protein 7.9 g/dL (6.3-8.2) 10/23/16 07:00 Albumin 3.8 g/dL (3.5-5.0) 10/23/16 07:00 ABO Group Type a 10/23/16 07:00 Rh Factor Positive 10/23/16 07:00 Antibody Screen Negative 10/23/16 07:00 Assessment and Plan-Ortho - Date of Encounter Date of Encounter: 10/25/16 (1) Supracondylar fracture of right femur Status: Acute Assessment and plan: Transfusion 2PRBCs Nutrition. DVT PPx. Podiatry consult ordered. Encourage IS for atelectasis. Current Visit: Yes (1) Supracondylar fracture of right femur Qualifiers: Encounter type: initial encounter Fracture type: closed Qualified Code(s): S72.451A - Displaced supracondylar fracture without intracondylar extension of lower end of right femur, initial encounter for closed fracture
[2016-10-25] MEDS ORDERED: NORMAL SALINE 500 ML IV ONE (19:35)
[2016-10-25] MEDS ORDERED: ACETAMINOPHEN 325 MG TABLET PO PRN (20:00)
[2016-10-26] MEDS ORDERED: FUROSEMIDE 20 MG/2 ML VIAL IV ONE (02:30)
[2016-10-26 06:16] LABS: HEMATOCRIT 28.7 % (42.0-54.0); HEMOGLOBIN 9.2 g/dL (14.0-18.0)
[2016-10-26] MEDS: ACETAMINOPHEN 325 MG TABLET PO PRN (08:41)
[2016-10-26] MEDS: MULTIVITAMINS THERAPEUTIC 1 TABLET PO SCH (08:41)
[2016-10-26] MEDS: ENOXAPARIN SODIUM 40 MG/0.4 ML SYR SUBCUT SCH (08:41)
[2016-10-26] MEDS: ASCORBIC ACID 500 MG TABLET PO SCH ×2 (08:42→20:27)
[2016-10-26] MEDS: FOLIC ACID 1 MG TABLET PO SCH (08:42)
[2016-10-26 16:57] LABS: A/G RATIO 0.8; ALBUMIN 2.9 g/dL (3.5-5.0); BILIRUBIN, TOTAL 2.5 mg/dL (0.2-1.3); BLOOD UREA NITROGEN 13 mg/dL (9-20); CALCIUM 7.6 mg/dL (8.4-10.2); CREATININE 0.6 mg/dL (0.7-1.3); EST GLOMERULAR FILTRATION RATE > 60 mL/min; GLUCOSE 87 mg/dL (70-100); POTASSIUM 3.5 mmol/L (3.5-5.1); SODIUM 136 mmol/L (137-145); TOTAL PROTEIN 6.4 g/dL (6.3-8.2)
[2016-10-26 17:07] LABS: MAGNESIUM 2.1 mg/dL (1.6-2.3)
[2016-10-26 17:16] LABS: ALKALINE PHOSPHATASE 56 U/L (38-126); ALT 56 U/L (21-72); AST 132 U/L (17-59); CHLORIDE 101 mmol/L (98-107)
--- NOTE | 2016-10-26 17:28 | PROGRESS NOTE: Orthopedics ---
Orthopedic PN Subjective - Subjective Principal Diagnosis: s/p right femurORIF Post-op Day: 2 Interval history: Irregular pulse and PVCs. 12 lead obtained. Pt asymptomatic @ cardiac. Ortho PN Objective Exam - Latest Vital Signs and I&O Latest Vital Signs/I&O: Vital Signs Temp 37.2 C 10/26/16 15:00 Pulse 85 10/26/16 16:19 Resp 24 10/26/16 15:00 BP 113/56 10/26/16 15:00 Pulse Ox 90 10/26/16 15:00 Intake & Output 10/25/16 10/26/16 10/26/16 17:59 05:59 17:59 Intake Total 950 2855 Output Total 350 1100 Balance 600 1755 Intake: IV 2200 Left Antecubital 2200 Oral 950 325 Blood Product 330 Output: Urine 350 1100 Other: Urine Appearance Clear Clear Clear Urine Color Straw Light Ina Light Ina Stool Size Moderate Moderate Stool Characteristics Soft Soft Liquid Liquid Voiding Method Indwelling Catheter Indwelling Catheter Indwelling Catheter # Bowel Movements 2 0 - Post-Operative Exam Post-op Day: 2 Dressing Status: changed Drainage Amount: none Distal Pulses: +2 Active Motor: intact Sensation: other (at baseline.) Dayami's sign: Negative Calf tenderness: no Weight bearing status: partial (for transfer balance) - Lab Labs: Laboratory Last Values WBC 11.4 X 10^3uL (3.9-10.7) H 10/24/16 17:00 RBC 2.56 X 10^6uL (4.20-6.10) L 10/24/16 17:00 Hgb 9.2 g/dL (14.0-18.0) L 10/26/16 06:00 Hct 28.7 % (42.0-54.0) L 10/26/16 06:00 MCV 86.0 fL (80.0-100.0) 10/24/16 17:00 MCH 30.7 pg (29.0-35.0) 10/24/16 17:00 MCHC 35.7 g/dL (32.0-36.0) 10/24/16 17:00 RDW 12.6 % (11.5-14.5) 10/24/16 17:00 Plt Count 308 X 10^3uL (130-440) 10/24/16 17:00 MPV 5.6 fL (7.4-10.4) L 10/24/16 17:00 Neutrophils % 80.2 % (54.0-75.0) H 10/24/16 17:00 Lymphocytes % 8.1 % (20.0-40.0) L 10/24/16 17:00 Eosinophils % 0.2 % (0.0-6.0) 10/24/16 17:00 Basophils % 0.1 % (0.0-2.0) 10/24/16 17:00 Neutrophils # 9.2 X 10^3uL (2.6-6.7) H 10/24/16 17:00 Lymphocytes # 0.9 X 10^3uL (0.8-3.8) 10/24/16 17:00 Monocytes 11.4 % (2.0-10.0) H 10/24/16 17:00 Monocytes # 1.3 X 10^3uL (0.2-1.0) H 10/24/16 17:00 Eosinophils # 0.0 X 10^3uL (0.0-0.4) 10/24/16 17:00 Basophils # 0.0 X 10^3uL (0.0-0.1) 10/24/16 17:00 PT 16.9 sec (13.0-16.6) H 10/23/16 07:00 INR 1.2 10/23/16 07:00 Sodium 136 mmol/L (137-145) L 10/26/16 16:45 Potassium 3.5 mmol/L (3.5-5.1) 10/26/16 16:45 Chloride 101 mmol/L (98-107) 10/26/16 16:45 Carbon Dioxide 27 mmol/L (22-30) 10/26/16 16:45 BUN 13 mg/dL (9-20) 10/26/16 16:45 Creatinine 0.6 mg/dL (0.7-1.3) L 10/26/16 16:45 GFR Calculation > 60 mL/min 10/26/16 16:45 Glucose 87 mg/dL (70-100) 10/26/16 16:45 Calcium 7.6 mg/dL (8.4-10.2) L 10/26/16 16:45 Magnesium 2.1 mg/dL (1.6-2.3) 10/26/16 16:45 Total Bilirubin 2.5 mg/dL (0.2-1.3) H D 10/26/16 16:45 Direct Bilirubin 0.2 mg/dL (0.0-0.4) 10/23/16 07:00 AST 132 U/L (17-59) H 10/26/16 16:45 ALT 56 U/L (21-72) 10/26/16 16:45 Alkaline Phosphatase 56 U/L (38-126) 10/26/16 16:45 Total Protein 6.4 g/dL (6.3-8.2) 10/26/16 16:45 Albumin 2.9 g/dL (3.5-5.0) L D 10/26/16 16:45 Albumin/Globulin Ratio 0.8 10/26/16 16:45 ABO Group Type a 10/23/16 07:00 Rh Factor Positive 10/23/16 07:00 Antibody Screen Negative 10/23/16 07:00 Crossmatch Compatible 10/25/16 19:15 - Allied Health Notes Allied health notes reviewed: nursing Assessment and Plan-Ortho - Date of Encounter Date of Encounter: 10/26/16 (1) Supracondylar fracture of right femur Status: Acute Assessment and plan: 2PRBCs transfused Nutrition. DVT PPx. Encourage IS for atelectasis. Medicine to follow cardiac work up. Ortho stable. Current Visit: Yes (1) Supracondylar fracture of right femur Qualifiers: Encounter type: initial encounter Fracture type: closed Qualified Code(s): S72.451A - Displaced supracondylar fracture without intracondylar extension of lower end of right femur, initial encounter for closed fracture
--- NOTE | 2016-10-26 18:48 | PROGRESS NOTE: IM APSO ---
Assessment and Plan - Date of Encounter Date of Encounter: 10/26/16 (1) Supracondylar fracture of right femur Status: Acute Assessment and plan: S/P ORIF on 10/23- managed by orthopedics Current Visit: Yes (2) PVC (premature ventricular contraction) Status: Acute Assessment and plan: New issue noted today. Electrolytes ordered with K of 3.5 and slight sodium drop to 126. Has been on LR since surgery- will change maint fluid to NS with 20KCl. EKG demonstrating PVCs in bigeminy but telemetry is not showing consistent frequency at this time. Will reorder electrolytes and TSH in morning and ask cardiology to help evaluate patient. He was on metoprolol in past but self stopped as bps had been low and ran out of medication- may need to restart low dose. With blood pressures in the 90s-100s systolic however I was hesitant to start tonight. Monitor on telemetry through evening for any changes Current Visit: Yes (3) History of CVA (cerebrovascular accident) Status: Chronic Assessment and plan: Baseline mobility is limited- wheel chair and home bound. Has not been out of bed since surgery. Do anticipate need for prolonged rehabilitation, likely PPLC when stable Current Visit: Yes (4) Right hemiparesis Status: Chronic Assessment and plan: Hemiparesis and numbness- did have femur fracture with ORIF repair. Pain is good control at this time. Anticipate prolonged need for rehab. Current Visit: Yes (5) Hypertension Status: Chronic Assessment and plan: Patient self discontinued medications 3-6 months ago due to low blood pressures and ran out of home delivery of medications. Did have elevation initial prior to surgery but values have been low since. Not on any medications at this time but previously was on triple drug regimen. Continue to monitor and appreciate cardiology recommendations. Current Visit: Yes (6) Rheumatoid arthritis Status: Chronic Assessment and plan: Multiple joint deformities. currently pain managed with acetaminophen. Will contribute to prolonged rehabilitation Current Visit: Yes - Time Spent With Patient Total time spent with greater than 50% in coordination of care (as documented) at patient's floor/unit and/or counseling patient: Greater than 35 minutes Estimated anticipated discharge: will need further rehab IM: PN Subjective Interval history: Asked to reconsult on patient by orthopedics today as he was noted to be having frequent PVCs. Patient states he is feeling well, better energy after his blood transfusion. has not been out of bed yet but admits he was not ambulatory pre injury/surgery. He has not noted any chest pain/shortness of breath. Does not feel the skipped heart beats (even after being told of the irregularity). Cant recall prior history of irregularity in heart beat (has been off his bp meds which included a beta waldemar for 3-6 months however related to low blood pressures) General: fatigue, no pain HEENT: no headache Cardiovascular: no chest pain, no chest pressure, no palpitations, no dizziness (has not been out of bed) Respiratory: no SOB Gastrointestinal: no abdominal pain, no nausea, no diarrhea (but looser stools than normal) Genitourinary: other (moffett), no flank pain Musculoskeletal: pain, weakness (baseline) Neurological: numbness (baseline on right), limb weakness (baseline on right, but also weakness on left due to deconditioning) IM: PN Objective Exam - I&O/Vital Signs I&O: Intake & Output 10/26/16 10/26/16 10/26/16 05:59 13:59 21:59 Intake Total 1955 480 Output Total 1100 300 Balance 855 180 Intake: IV 1300 Left Antecubital 1300 Oral 325 480 Blood Product 330 Output: Urine 1100 300 Other: Urine Appearance Clear Clear Clear Urine Color Light Ina Light Ina Light Ina Stool Size Moderate Moderate Stool Characteristics Soft Liquid Liquid Brown Voiding Method Indwelling Catheter Indwelling Catheter Indwelling Catheter # Bowel Movements 0 1 Vital Signs: Last Vital Signs Temp 37.2 C 10/26/16 15:00 Pulse 85 10/26/16 16:19 Resp 24 10/26/16 15:00 BP 113/56 10/26/16 15:00 Pulse Ox 90 10/26/16 15:00 Oxygen Flow Rate 1.5 Oxygen Delivery Method Nasal Cannula - Constitutional General appearance: Present: average body habitus, cooperative. Absent: acute distress - Head Head exam: Present: atraumatic, normal inspection - Eye Eye exam: Absent: conjunctival injection - ENT ENT exam: Present: mucous membranes moist, normal oropharynx (minimal dentition) - Neck Neck exam: Present: normal inspection. Absent: tenderness - Respiratory Respiratory exam: Present: CTAB. Absent: accessory muscle use - Cardiovascular Cardiovascular exam: Present: irregular rhythm (intermittent irregularities noted associated to PVCs on monitor), S1, S2 - GI/Abdominal GI/Abdominal exam: Present: soft. Absent: tenderness - Extremities Exam Extremities exam: Present: other (right leg not fully examined as ortho evaluated patient today). Absent: calf tenderness, edema - Neurological Exam Neurological exam: Present: alert, oriented X3 - Psychiatric Psychiatric exam: Present: normal affect, normal mood, other - Allied Health Notes Allied health notes reviewed: case management, nursing - Lab Labs: Laboratory Last Values WBC 11.4 X 10^3uL (3.9-10.7) H 10/24/16 17:00 RBC 2.56 X 10^6uL (4.20-6.10) L 10/24/16 17:00 Hgb 9.2 g/dL (14.0-18.0) L 10/26/16 06:00 Hct 28.7 % (42.0-54.0) L 10/26/16 06:00 MCV 86.0 fL (80.0-100.0) 10/24/16 17:00 MCH 30.7 pg (29.0-35.0) 10/24/16 17:00 MCHC 35.7 g/dL (32.0-36.0) 10/24/16 17:00 RDW 12.6 % (11.5-14.5) 10/24/16 17:00 Plt Count 308 X 10^3uL (130-440) 10/24/16 17:00 MPV 5.6 fL (7.4-10.4) L 10/24/16 17:00 Neutrophils % 80.2 % (54.0-75.0) H 10/24/16 17:00 Lymphocytes % 8.1 % (20.0-40.0) L 10/24/16 17:00 Eosinophils % 0.2 % (0.0-6.0) 10/24/16 17:00 Basophils % 0.1 % (0.0-2.0) 10/24/16 17:00 Neutrophils # 9.2 X 10^3uL (2.6-6.7) H 10/24/16 17:00 Lymphocytes # 0.9 X 10^3uL (0.8-3.8) 10/24/16 17:00 Monocytes 11.4 % (2.0-10.0) H 10/24/16 17:00 Monocytes # 1.3 X 10^3uL (0.2-1.0) H 10/24/16 17:00 Eosinophils # 0.0 X 10^3uL (0.0-0.4) 10/24/16 17:00 Basophils # 0.0 X 10^3uL (0.0-0.1) 10/24/16 17:00 PT 16.9 sec (13.0-16.6) H 10/23/16 07:00 INR 1.2 10/23/16 07:00 Sodium 136 mmol/L (137-145) L 10/26/16 16:45 Potassium 3.5 mmol/L (3.5-5.1) 10/26/16 16:45 Chloride 101 mmol/L (98-107) 10/26/16 16:45 Carbon Dioxide 27 mmol/L (22-30) 10/26/16 16:45 BUN 13 mg/dL (9-20) 10/26/16 16:45 Creatinine 0.6 mg/dL (0.7-1.3) L 10/26/16 16:45 GFR Calculation > 60 mL/min 10/26/16 16:45 Glucose 87 mg/dL (70-100) 10/26/16 16:45 Calcium 7.6 mg/dL (8.4-10.2) L 10/26/16 16:45 Magnesium 2.1 mg/dL (1.6-2.3) 10/26/16 16:45 Total Bilirubin 2.5 mg/dL (0.2-1.3) H D 10/26/16 16:45 Direct Bilirubin 0.2 mg/dL (0.0-0.4) 10/23/16 07:00 AST 132 U/L (17-59) H 10/26/16 16:45 ALT 56 U/L (21-72) 10/26/16 16:45 Alkaline Phosphatase 56 U/L (38-126) 10/26/16 16:45 Total Protein 6.4 g/dL (6.3-8.2) 10/26/16 16:45 Albumin 2.9 g/dL (3.5-5.0) L D 10/26/16 16:45 Albumin/Globulin Ratio 0.8 10/26/16 16:45 ABO Group Type a 10/23/16 07:00 Rh Factor Positive 10/23/16 07:00 Antibody Screen Negative 10/23/16 07:00 Crossmatch Compatible 10/25/16 19:15 Quality Questions - VTE Prophylaxis Assessment VTE Present on Admission?: No Patient at risk for venous thromboembolism?: Yes VTE Risk Level: High Risk Pharmaceutical VTE prophylaxis contraindication reason: N/A- VTE prophylaxsis ordered Mechanical VTE prophylaxis contraindication reason: N/A- VTE prophylaxsis ordered (1) Supracondylar fracture of right femur Qualifiers: Encounter type: initial encounter Fracture type: closed Qualified Code(s): S72.451A - Displaced supracondylar fracture without intracondylar extension of lower end of right femur, initial encounter for closed fracture
[2016-10-27] MEDS: POTASSIUM CHLORIDE/NS 1,000 ML IV SCH ×2 (03:34→20:21)
[2016-10-27 05:33] LABS: EOSINOPHILS# 0.4 X 10^3uL (0.0-0.4); MEAN CELL VOLUME 87.4 fL (80.0-100.0); MEAN PLATELET VOLUME 6.8 fL (7.4-10.4); RED BLOOD COUNT 2.94 X 10^6uL (4.20-6.10); RED CELL DISTRIBUTION WIDTH 12.5 % (11.5-14.5)
[2016-10-27 05:44] LABS: A/G RATIO 0.8; ALBUMIN 2.6 g/dL (3.5-5.0); ALKALINE PHOSPHATASE 54 U/L (38-126); ALT 78 U/L (21-72); AST 137 U/L (17-59); BILIRUBIN, TOTAL 1.9 mg/dL (0.2-1.3); BLOOD UREA NITROGEN 11 mg/dL (9-20); CHLORIDE 102 mmol/L (98-107); CREATININE 0.6 mg/dL (0.7-1.3); EST GLOMERULAR FILTRATION RATE > 60 mL/min; GLUCOSE 101 mg/dL (70-100); POTASSIUM 3.4 mmol/L (3.5-5.1); SODIUM 137 mmol/L (137-145)
[2016-10-27 05:46] LABS: BASOPHILS 0.6 % (0.0-2.0); EOSINOPHILS 5.5 % (0.0-6.0); HEMATOCRIT 25.7 % (42.0-54.0); HEMOGLOBIN 8.6 g/dL (14.0-18.0); LYMPHOCYTES 12.4 % (20.0-40.0); LYMPHOCYTES# 0.9 X 10^3uL (0.8-3.8); MEAN CORPUS. HGB CONCENTRATION 33.6 g/dL (32.0-36.0); MEAN CORPUSCULAR HEMOGLOBIN 29.4 pg (29.0-35.0); MONOCYTES 6.9 % (2.0-10.0); MONOCYTES# 0.5 X 10^3uL (0.2-1.0); NEUTROPHILS 74.6 % (54.0-75.0); NEUTROPHILS# 5.5 X 10^3uL (2.6-6.7); PLATELET COUNT 265 X 10^3uL (130-440); WHITE BLOOD COUNT 7.3 X 10^3uL (3.9-10.7)
[2016-10-27 06:14] LABS: THYROID STIMULATING HORMONE 1.77 uIU/mL (0.47-4.68)
[2016-10-27 06:15] LABS: CALCIUM 7.5 mg/dL (8.4-10.2)
[2016-10-27 08:45] LABS: INR 1.4
--- NOTE | 2016-10-27 08:57 | PROGRESS NOTE: IM SOAP ---
IM: PN Subjective General: fatigue, no good appetite, no pain (He is not even using much of the Tylenol now. ), no fever, no chills HEENT: no headache Cardiovascular: no chest pain, no chest pressure, no palpitations, no dizziness (has not been out of bed) Respiratory: no cough, no SOB Gastrointestinal: no abdominal pain, no nausea, no vomiting, no diarrhea (but looser stools than normal) Genitourinary: other (Donaldson in place.), no flank pain Musculoskeletal: weakness (He is at his baseline.), no pain (Minimal to no pain of LLE. ) Integumentary: other (Small, superficial eschar L anterior vickers) Neurological: numbness (Baseline on right s/p CVA. ), limb weakness (Baseline on right, but also weakness on left due to deconditioning) IM: PN Objective Exam - I&O/Vital Signs I&O: Intake & Output 10/26/16 10/27/16 10/27/16 21:59 05:59 13:59 Intake Total 480 2320 Output Total 300 350 Balance 180 1970 Intake: IV 1120 Left Antecubital 1120 Oral 480 1200 Output: Urine 300 350 Other: Urine Appearance Clear Clear Urine Color Light Ina Light Ina Stool Size Moderate Stool Characteristics Liquid Brown Voiding Method Indwelling Catheter Indwelling Catheter # Bowel Movements 1 0 Vital Signs: Last Vital Signs Temp 37.4 C 10/27/16 06:30 Pulse 61 10/27/16 06:30 Resp 22 10/27/16 06:30 BP 110/56 10/27/16 06:30 Pulse Ox 92 10/27/16 06:30 Oxygen Flow Rate 1.5 Oxygen Delivery Method Nasal Cannula - Constitutional General appearance: Present: average body habitus, cooperative. Absent: acute distress - Head Head exam: Present: atraumatic, normal inspection - Eye Eye exam: Present: EOMI, PERRL. Absent: conjunctival injection - ENT ENT exam: Present: mucous membranes moist - Neck Neck exam: Present: normal inspection. Absent: tenderness - Respiratory Respiratory exam: Present: rales (Bibasilar rales. ). Absent: accessory muscle use, respiratory distress, wheezes - Cardiovascular Cardiovascular exam: Present: RRR (Minimal ectopy. ). Absent: systolic murmur - GI/Abdominal GI/Abdominal exam: Present: normal bowel sounds, soft. Absent: mass, organomegaly, tenderness - Extremities Exam Extremities exam: Present: edema (RLE 1+. LLE no edema. Chroninc venous stasis changes, L>R. Better than baseline. ), other. Absent: calf tenderness - Neurological Exam Neurological exam: Present: alert, oriented X3 - Psychiatric Psychiatric exam: Present: normal affect, normal mood - Allied Health Notes Allied health notes reviewed: case management, nursing, PT - Lab Labs: Laboratory Last Values WBC 7.3 X 10^3uL (3.9-10.7) 10/27/16 05:25 RBC 2.94 X 10^6uL (4.20-6.10) L 10/27/16 05:25 Hgb 8.6 g/dL (14.0-18.0) L 10/27/16 05:25 Hct 25.7 % (42.0-54.0) L 10/27/16 05:25 MCV 87.4 fL (80.0-100.0) 10/27/16 05:25 MCH 29.4 pg (29.0-35.0) 10/27/16 05:25 MCHC 33.6 g/dL (32.0-36.0) 10/27/16 05:25 RDW 12.5 % (11.5-14.5) 10/27/16 05:25 Plt Count 265 X 10^3uL (130-440) 10/27/16 05:25 MPV 6.8 fL (7.4-10.4) L 10/27/16 05:25 Neutrophils % 74.6 % (54.0-75.0) 10/27/16 05:25 Lymphocytes % 12.4 % (20.0-40.0) L 10/27/16 05:25 Eosinophils % 5.5 % (0.0-6.0) 10/27/16 05:25 Basophils % 0.6 % (0.0-2.0) 10/27/16 05:25 Neutrophils # 5.5 X 10^3uL (2.6-6.7) 10/27/16 05:25 Lymphocytes # 0.9 X 10^3uL (0.8-3.8) 10/27/16 05:25 Monocytes 6.9 % (2.0-10.0) 10/27/16 05:25 Monocytes # 0.5 X 10^3uL (0.2-1.0) 10/27/16 05:25 Eosinophils # 0.4 X 10^3uL (0.0-0.4) 10/27/16 05:25 Basophils # 0.0 X 10^3uL (0.0-0.1) 10/27/16 05:25 PT 18.5 sec (13.0-16.6) H 10/27/16 05:25 INR 1.4 10/27/16 05:25 PTT 68 sec (24-38) H 10/27/16 05:25 Sodium 137 mmol/L (137-145) 10/27/16 05:25 Potassium 3.4 mmol/L (3.5-5.1) L 10/27/16 05:25 Chloride 102 mmol/L (98-107) 10/27/16 05:25 Carbon Dioxide 28 mmol/L (22-30) 10/27/16 05:25 BUN 11 mg/dL (9-20) 10/27/16 05:25 Creatinine 0.6 mg/dL (0.7-1.3) L 10/27/16 05:25 GFR Calculation > 60 mL/min 10/27/16 05:25 Glucose 101 mg/dL (70-100) H 10/27/16 05:25 Calcium 7.5 mg/dL (8.4-10.2) L 10/27/16 05:25 Phosphorus 2.5 mg/dL (2.5-4.5) 10/27/16 05:25 Magnesium 2.0 mg/dL (1.6-2.3) 10/27/16 05:25 Total Bilirubin 1.9 mg/dL (0.2-1.3) H 10/27/16 05:25 Direct Bilirubin 0.2 mg/dL (0.0-0.4) 10/23/16 07:00 AST 137 U/L (17-59) H 10/27/16 05:25 ALT 78 U/L (21-72) H 10/27/16 05:25 Alkaline Phosphatase 54 U/L (38-126) 10/27/16 05:25 Total Protein 6.0 g/dL (6.3-8.2) L 10/27/16 05:25 Albumin 2.6 g/dL (3.5-5.0) L 10/27/16 05:25 Albumin/Globulin Ratio 0.8 10/27/16 05:25 TSH 1.77 uIU/mL (0.47-4.68) 10/27/16 05:25 ABO Group Type a 10/23/16 07:00 Rh Factor Positive 10/23/16 07:00 Antibody Screen Negative 10/23/16 07:00 Crossmatch Compatible 10/25/16 19:15 Assessment and Plan - Date of Encounter Date of Encounter: 10/27/16 (1) Supracondylar fracture of right femur Status: Acute Assessment and plan: I have d/w PT, SW, and nursing staff. Given Josse's prior CVA with R weakness and use of wheelchair, he would probably benefit from rehabilitation at [facility] to meet his many needs. His goal is to return home. I am concerned that he would not be able to leave [facility]. Appreciate Dr. Bean's care. Continue PT and OT here. He has many medical issues and will not be ready for transition to swing bed vs. outside rehabilitation facility for 1-2 days. Current Visit: Yes (2) Anemia Status: Acute Assessment and plan: He is s/p 2 units pBCs. Check iron studies, B12, folate. Heme neg x 1. He may need an additional 2 units. Follow closely. Current Visit: Yes (3) History of CVA (cerebrovascular accident) Status: Chronic Assessment and plan: Remote with R sided weakness. He uses a wheelchair for mobility. Goal to return home to live independently. Begin BASA as outpatient. No ASA now given anemia. On Lovenox s/o orthopedic surgery. Current Visit: Yes (4) PVC (premature ventricular contraction) Status: Acute Assessment and plan: EKG without ischemic changes. Appreciate Di Capone's input. Low-dose B waldemar. Echocardiogram today. Current Visit: Yes (5) Hypertension Status: Chronic Assessment and plan: He had been off of BP medications for several months at home. BP elevated on admission and on the low-side now. Low-dose B waldemar started today per Dr. Capone. Current Visit: Yes (6) Abnormal LFTs (liver function tests) Status: Acute Assessment and plan: Unclear etiology. Normal LFTs on admission. No abdominal pain, N/V. Check abdominal U/S. Current Visit: Yes (7) Rheumatoid arthritis Status: Chronic Assessment and plan: Chronic and remarkably stable. Current Visit: Yes (8) Right hemiparesis Status: Chronic Assessment and plan: S/P CVA. Stable. Current Visit: Yes - Time Spent With Patient Total time spent with greater than 50% in coordination of care (as documented) at patient's floor/unit and/or counseling patient: 16-24 minutes Estimated anticipated discharge: 1-3 days Quality Questions - VTE Prophylaxis Assessment VTE Present on Admission?: No Patient at risk for venous thromboembolism?: Yes VTE Risk Level: High Risk Pharmaceutical VTE prophylaxis contraindication reason: N/A- VTE prophylaxsis ordered Mechanical VTE prophylaxis contraindication reason: N/A- VTE prophylaxsis ordered (1) Supracondylar fracture of right femur Qualifiers: Encounter type: initial encounter Fracture type: closed Qualified Code(s): S72.451A - Displaced supracondylar fracture without intracondylar extension of lower end of right femur, initial encounter for closed fracture (2) Anemia Qualifiers: Anemia type: unspecified type Qualified Code(s): D64.9 - Anemia, unspecified (5) Hypertension Qualifiers: Hypertension type: essential hypertension Qualified Code(s): I10 - Essential (primary) hypertension
[2016-10-27] MEDS ORDERED: POTASSIUM CHLORIDE ER 20 MEQ TABLET PO SCH (09:00)
[2016-10-27] MEDS: ENOXAPARIN SODIUM 40 MG/0.4 ML SYR SUBCUT SCH (10:01)
[2016-10-27] MEDS: ASCORBIC ACID 500 MG TABLET PO SCH ×2 (10:01→20:07)
[2016-10-27] MEDS: MULTIVITAMINS THERAPEUTIC 1 TABLET PO SCH (10:02)
[2016-10-27] MEDS: FOLIC ACID 1 MG TABLET PO SCH (10:02)
[2016-10-27] MEDS: metoprolol SUCC ER 25 MG TABLET PO SCH (10:08)
--- NOTE | 2016-10-27 11:06 | PROGRESS NOTE: Orthopedics ---
Orthopedic PN Subjective - Subjective Principal Diagnosis: s/p femur ORIF Post-op Day: 3 Interval history: Comfortable. No pain. Receiving Echo cardiogram today. Ortho PN Objective Exam - Latest Vital Signs and I&O Latest Vital Signs/I&O: Vital Signs Temp 37.4 C 10/27/16 06:30 Pulse 61 10/27/16 06:30 Resp 22 10/27/16 09:00 BP 110/56 10/27/16 06:30 Pulse Ox 92 10/27/16 09:00 Intake & Output 10/26/16 10/27/16 10/27/16 17:59 05:59 17:59 Intake Total 480 2320 Output Total 300 350 Balance 180 1970 Intake: IV 1120 Left Antecubital 1120 Oral 480 1200 Output: Urine 300 350 Other: Urine Appearance Clear Clear Clear Urine Color Light Ina Light Ina Light Ina Stool Size Moderate Moderate Moderate Stool Characteristics Liquid Liquid Liquid Brown Brown Brown Voiding Method Indwelling Catheter Indwelling Catheter Indwelling Catheter # Bowel Movements 1 0 - Post-Operative Exam Post-op Day: 3 Incision: Present: clean and dry Dressing Status: dry & intact Drainage Amount: none Distal Pulses: +2 Active Motor: intact Sensation: other (at baseline.) Dayami's sign: Negative Calf tenderness: no Weight bearing status: partial (for transfer balance) Additional Exam: Incision well approximated. No erythema. - Lab Labs: Laboratory Last Values WBC 7.3 X 10^3uL (3.9-10.7) 10/27/16 05:25 RBC 2.94 X 10^6uL (4.20-6.10) L 10/27/16 05:25 Hgb 8.6 g/dL (14.0-18.0) L 10/27/16 05:25 Hct 25.7 % (42.0-54.0) L 10/27/16 05:25 MCV 87.4 fL (80.0-100.0) 10/27/16 05:25 MCH 29.4 pg (29.0-35.0) 10/27/16 05:25 MCHC 33.6 g/dL (32.0-36.0) 10/27/16 05:25 RDW 12.5 % (11.5-14.5) 10/27/16 05:25 Plt Count 265 X 10^3uL (130-440) 10/27/16 05:25 MPV 6.8 fL (7.4-10.4) L 10/27/16 05:25 Neutrophils % 74.6 % (54.0-75.0) 10/27/16 05:25 Lymphocytes % 12.4 % (20.0-40.0) L 10/27/16 05:25 Eosinophils % 5.5 % (0.0-6.0) 10/27/16 05:25 Basophils % 0.6 % (0.0-2.0) 10/27/16 05:25 Neutrophils # 5.5 X 10^3uL (2.6-6.7) 10/27/16 05:25 Lymphocytes # 0.9 X 10^3uL (0.8-3.8) 10/27/16 05:25 Monocytes 6.9 % (2.0-10.0) 10/27/16 05:25 Monocytes # 0.5 X 10^3uL (0.2-1.0) 10/27/16 05:25 Eosinophils # 0.4 X 10^3uL (0.0-0.4) 10/27/16 05:25 Basophils # 0.0 X 10^3uL (0.0-0.1) 10/27/16 05:25 PT 18.5 sec (13.0-16.6) H 10/27/16 05:25 INR 1.4 10/27/16 05:25 PTT 68 sec (24-38) H 10/27/16 05:25 Sodium 137 mmol/L (137-145) 10/27/16 05:25 Potassium 3.4 mmol/L (3.5-5.1) L 10/27/16 05:25 Chloride 102 mmol/L (98-107) 10/27/16 05:25 Carbon Dioxide 28 mmol/L (22-30) 10/27/16 05:25 BUN 11 mg/dL (9-20) 10/27/16 05:25 Creatinine 0.6 mg/dL (0.7-1.3) L 10/27/16 05:25 GFR Calculation > 60 mL/min 10/27/16 05:25 Glucose 101 mg/dL (70-100) H 10/27/16 05:25 Calcium 7.5 mg/dL (8.4-10.2) L 10/27/16 05:25 Phosphorus 2.5 mg/dL (2.5-4.5) 10/27/16 05:25 Magnesium 2.0 mg/dL (1.6-2.3) 10/27/16 05:25 Total Bilirubin 1.9 mg/dL (0.2-1.3) H 10/27/16 05:25 Direct Bilirubin 0.2 mg/dL (0.0-0.4) 10/23/16 07:00 AST 137 U/L (17-59) H 10/27/16 05:25 ALT 78 U/L (21-72) H 10/27/16 05:25 Alkaline Phosphatase 54 U/L (38-126) 10/27/16 05:25 Total Protein 6.0 g/dL (6.3-8.2) L 10/27/16 05:25 Albumin 2.6 g/dL (3.5-5.0) L 10/27/16 05:25 Albumin/Globulin Ratio 0.8 10/27/16 05:25 TSH 1.77 uIU/mL (0.47-4.68) 10/27/16 05:25 ABO Group Type a 10/23/16 07:00 Rh Factor Positive 10/23/16 07:00 Antibody Screen Negative 10/23/16 07:00 Crossmatch Compatible 10/25/16 19:15 - Allied Health Notes Allied health notes reviewed: nursing Assessment and Plan-Ortho - Date of Encounter Date of Encounter: 10/27/16 (1) Supracondylar fracture of right femur Status: Acute Assessment and plan: More energy today. Appreciate medicine care and follow up. Mcdonald to be removes at about POD #14. PWB for transfers. The patient should have follow up xrays at about the same time as when his genoveva are removed. No further immediate orthopedic surgery care required at this time. Current Visit: Yes Estimated anticipated discharge: 1-3 days (1) Supracondylar fracture of right femur Qualifiers: Encounter type: initial encounter Fracture type: closed Qualified Code(s): S72.451A - Displaced supracondylar fracture without intracondylar extension of lower end of right femur, initial encounter for closed fracture
--- NOTE | 2016-10-27 14:13 | US REPORT ---
HISTORY: Abnormal LFTs COMPARISON: None. FINDINGS: Limited study secondary to extensive bowel gas. Liver: The liver measures 15.4 cm in length. The liver appears normal without mass or biliary dilatat ion. The main portal vein is patent with hepatopedal flow. Biliary System: No intra or extra hepatic bile duct dilatation is seen. CBD measures 5 mm. Gallbladder: Gallbladder is not visualized. Right Kidney: The right kidney measures 13.3 cm in length. 7.6 cm cyst upper pole right kidney. Left Kidney: The left kidney measures 10.0 cm in length. It is normal in size and appearance. Spleen: The spleen is unremarkable in appearance. Pancreas: The pancreas is obscured by bowel gas. Retroperitoneum: The aorta and IVC are poorly visualized due to overlying bowel gas. Additional Findings: No free fluid is seen. Right pleural effusion. IMPRESSION: 1. Limited study secondary to extensive bowel gas. 2. Nonvisualization of the gallbladder suggesting prior cholecystectomy. 3. Right pleural effusion. 4. 7.6 cm cyst arising from the upper pole right kidney. Final Electronic Signature: This report was electronically signed by Jonathan Yost MD on 10/27/2016 2:11 PM. mari /
[2016-10-28 06:07] LABS: BASOPHILS 0.2 % (0.0-2.0); EOSINOPHILS 5.7 % (0.0-6.0); EOSINOPHILS# 0.4 X 10^3uL (0.0-0.4); HEMATOCRIT 25.7 % (42.0-54.0); HEMOGLOBIN 8.6 g/dL (14.0-18.0); LYMPHOCYTES 12.3 % (20.0-40.0); LYMPHOCYTES# 0.9 X 10^3uL (0.8-3.8); MEAN CELL VOLUME 87.6 fL (80.0-100.0); MEAN CORPUS. HGB CONCENTRATION 33.4 g/dL (32.0-36.0); MEAN CORPUSCULAR HEMOGLOBIN 29.3 pg (29.0-35.0); MEAN PLATELET VOLUME 6.5 fL (7.4-10.4); MONOCYTES 9.6 % (2.0-10.0); MONOCYTES# 0.7 X 10^3uL (0.2-1.0); NEUTROPHILS 72.2 % (54.0-75.0); NEUTROPHILS# 5.1 X 10^3uL (2.6-6.7); PLATELET COUNT 308 X 10^3uL (130-440); RED BLOOD COUNT 2.94 X 10^6uL (4.20-6.10); RED CELL DISTRIBUTION WIDTH 12.7 % (11.5-14.5); WHITE BLOOD COUNT 7.1 X 10^3uL (3.9-10.7)
[2016-10-28 06:21] LABS: A/G RATIO 0.8; ALBUMIN 2.6 g/dL (3.5-5.0); ALKALINE PHOSPHATASE 58 U/L (38-126); ALT 95 U/L (21-72); AST 113 U/L (17-59); BLOOD UREA NITROGEN 9 mg/dL (9-20); CALCIUM 7.7 mg/dL (8.4-10.2); CHLORIDE 105 mmol/L (98-107); CREATININE 0.6 mg/dL (0.7-1.3); EST GLOMERULAR FILTRATION RATE > 60 mL/min; GLUCOSE 106 mg/dL (70-100); IRON 19 ug/dL (49-181); POTASSIUM 3.5 mmol/L (3.5-5.1); SODIUM 141 mmol/L (137-145); TOTAL PROTEIN 5.9 g/dL (6.3-8.2)
[2016-10-28 06:28] LABS: TOTAL IRON BINDING CAPACITY 198 ug/mL (250-400); TRANSFERRIN 133 mg/dL (206-381); TRANSFERRIN SATURATION 10 % (14-50)
[2016-10-28] MEDS: FUROSEMIDE 20 MG/2 ML VIAL IV ONE ×2 (08:11→08:19)
[2016-10-28] MEDS ORDERED: FUROSEMIDE 40 MG/4 ML VIAL ONE (08:29)
--- NOTE | 2016-10-28 08:41 | PROGRESS NOTE: IM SOAP ---
IM: PN Subjective General: fatigue (But no change from baseline. ), no good appetite, no pain ( Minimal pain s/p femur fracture.), no fever, no chills HEENT: no headache Cardiovascular: no chest pain, no chest pressure, no palpitations, no dizziness (has not been out of bed) Respiratory: no cough, no SOB Gastrointestinal: bloating (Passing flatus and liquid stool. ), flatus, no abdominal pain, no nausea, no vomiting, no diarrhea (but looser stools than normal) Genitourinary: other (Donaldson in place.), no flank pain Musculoskeletal: weakness (He is at his baseline.), no pain (Minimal to no pain of LLE. ) Integumentary: other (Small, superficial eschar L anterior vickers) Neurological: numbness (Baseline on right s/p CVA. ), limb weakness (Baseline on right, but also weakness on left due to deconditioning) IM: PN Objective Exam - I&O/Vital Signs I&O: Intake & Output 10/27/16 10/28/16 10/28/16 21:59 05:59 13:59 Intake Total 1210 585 Output Total 325 300 Balance 885 285 Weight 93 kg Intake: IV 720 320 Left Antecubital 720 Right Forearm 320 Oral 490 265 Output: Urine 325 300 Other: Urine Appearance Clear Clear Urine Color Light Ina Light Ina Stool Size Smear Large Stool Characteristics Liquid Liquid Voiding Method Indwelling Catheter Indwelling Catheter # Bowel Movements 1 1 Vital Signs: Last Vital Signs Temp 37.5 C 10/28/16 06:31 Pulse 73 10/28/16 06:31 Resp 14 10/28/16 06:31 BP 107/53 10/28/16 06:31 Pulse Ox 91 10/28/16 07:49 Oxygen Flow Rate 0.5 Oxygen Delivery Method Nasal Cannula - Constitutional General appearance: Present: average body habitus, cooperative. Absent: acute distress - Head Head exam: Present: atraumatic, normal inspection - Eye Eye exam: Present: EOMI, PERRL. Absent: conjunctival injection - ENT ENT exam: Present: mucous membranes moist - Neck Neck exam: Present: normal inspection. Absent: tenderness - Respiratory Respiratory exam: Present: rales (Bibasilar rales. ). Absent: accessory muscle use, respiratory distress, wheezes - Cardiovascular Cardiovascular exam: Present: RRR (No ectopy today.). Absent: systolic murmur - GI/Abdominal GI/Abdominal exam: Present: normal bowel sounds, soft, other (No isa or any abdominal scars. ). Absent: distended, mass, organomegaly, tenderness - Extremities Exam Extremities exam: Present: edema (RLE trace. LLE no edema. Chronic venous stasis changes, L>R. Better than baseline. ), other (Erythematous, papular rash BLE in areas of SCDs c/w contact dermatitis.). Absent: calf tenderness - Neurological Exam Neurological exam: Present: alert, oriented X3, other (Baseline mild cognitive impairment.) - Psychiatric Psychiatric exam: Present: normal affect, normal mood - Allied Health Notes Allied health notes reviewed: nursing - Lab Labs: Laboratory Last Values WBC 7.1 X 10^3uL (3.9-10.7) 10/28/16 05:55 RBC 2.94 X 10^6uL (4.20-6.10) L 10/28/16 05:55 Hgb 8.6 g/dL (14.0-18.0) L 10/28/16 05:55 Hct 25.7 % (42.0-54.0) L 10/28/16 05:55 MCV 87.6 fL (80.0-100.0) 10/28/16 05:55 MCH 29.3 pg (29.0-35.0) 10/28/16 05:55 MCHC 33.4 g/dL (32.0-36.0) 10/28/16 05:55 RDW 12.7 % (11.5-14.5) 10/28/16 05:55 Plt Count 308 X 10^3uL (130-440) 10/28/16 05:55 MPV 6.5 fL (7.4-10.4) L 10/28/16 05:55 Neutrophils % 72.2 % (54.0-75.0) 10/28/16 05:55 Lymphocytes % 12.3 % (20.0-40.0) L 10/28/16 05:55 Eosinophils % 5.7 % (0.0-6.0) 10/28/16 05:55 Basophils % 0.2 % (0.0-2.0) 10/28/16 05:55 Neutrophils # 5.1 X 10^3uL (2.6-6.7) 10/28/16 05:55 Lymphocytes # 0.9 X 10^3uL (0.8-3.8) 10/28/16 05:55 Monocytes 9.6 % (2.0-10.0) 10/28/16 05:55 Monocytes # 0.7 X 10^3uL (0.2-1.0) 10/28/16 05:55 Eosinophils # 0.4 X 10^3uL (0.0-0.4) 10/28/16 05:55 Basophils # 0.0 X 10^3uL (0.0-0.1) 10/28/16 05:55 PT 18.5 sec (13.0-16.6) H 10/27/16 05:25 INR 1.4 10/27/16 05:25 PTT 68 sec (24-38) H 10/27/16 05:25 Sodium 141 mmol/L (137-145) 10/28/16 05:55 Potassium 3.5 mmol/L (3.5-5.1) 10/28/16 05:55 Chloride 105 mmol/L (98-107) 10/28/16 05:55 Carbon Dioxide 28 mmol/L (22-30) 10/28/16 05:55 BUN 9 mg/dL (9-20) 10/28/16 05:55 Creatinine 0.6 mg/dL (0.7-1.3) L 10/28/16 05:55 GFR Calculation > 60 mL/min 10/28/16 05:55 Glucose 106 mg/dL (70-100) H 10/28/16 05:55 Calcium 7.7 mg/dL (8.4-10.2) L 10/28/16 05:55 Phosphorus 2.5 mg/dL (2.5-4.5) 10/27/16 05:25 Magnesium 2.0 mg/dL (1.6-2.3) 10/27/16 05:25 Iron 19 ug/dL (49-181) L 10/28/16 05:55 TIBC 198 ug/mL (250-400) L 10/28/16 05:55 Transferrin 133 mg/dL (206-381) L 10/28/16 05:55 Transferrin % Sat 10 % (14-50) L 10/28/16 05:55 Total Bilirubin 2.0 mg/dL (0.2-1.3) H 10/28/16 05:55 Direct Bilirubin 0.2 mg/dL (0.0-0.4) 10/23/16 07:00 AST 113 U/L (17-59) H 10/28/16 05:55 ALT 95 U/L (21-72) H 10/28/16 05:55 Alkaline Phosphatase 58 U/L (38-126) 10/28/16 05:55 NT-Pro-B Natriuret Pep 1320 pg/mL (<125) H 10/28/16 05:55 Total Protein 5.9 g/dL (6.3-8.2) L 10/28/16 05:55 Albumin 2.6 g/dL (3.5-5.0) L 10/28/16 05:55 Albumin/Globulin Ratio 0.8 10/28/16 05:55 TSH 1.77 uIU/mL (0.47-4.68) 10/27/16 05:25 ABO Group Type a 10/23/16 07:00 Rh Factor Positive 10/23/16 07:00 Antibody Screen Negative 10/23/16 07:00 Crossmatch Compatible 10/25/16 19:15 Assessment and Plan - Date of Encounter Date of Encounter: 10/28/16 (1) Supracondylar fracture of right femur Status: Acute Assessment and plan: I have d/w PT, SW, and nursing staff. Josse would like to remain here in [facility] for his rehabilitation. He will require prolonged rehabilitation probably both in swing bed and at [facility]. His goal is to return home. He has not yet been able to get out of bed or into his wheelchair since surgery. Appreciate Dr. Bean's care. Continue PT and OT here. He has many medical issues and will not be ready for transition to swing bed for 1-2 days. Sutures out at POD #14. Current Visit: Yes (2) Anemia Status: Acute Assessment and plan: He is s/p 2 units pBCs. His iron studies consistent with iron deficiency. I suspect that he has chronic iron deficiency which is now worsened after fracture and surgery. Will transfuse 2 more units. B12 and folate pending. Will request heme consult with Dr. Pugh. Current Visit: Yes (3) History of CVA (cerebrovascular accident) Status: Chronic Assessment and plan: Remote with R sided weakness. He uses a wheelchair for mobility. Goal to return home to live independently. Begin BASA as outpatient. No ASA now given anemia. On Lovenox s/p orthopedic surgery. Current Visit: Yes (4) PVC (premature ventricular contraction) Status: Acute Assessment and plan: EKG without ischemic changes. Appreciate Di Capone's input. Low-dose B waldemar. Echocardiogram yesterday with normal EF. NSR with no ectopy today. Current Visit: Yes (5) Hypertension Status: Chronic Assessment and plan: He had been off of BP medications for several months at home. BP elevated on admission and on the low-side now. Low-dose B waldemar started yesterday per Dr. Capone. BP overall stable. Current Visit: Yes (6) Abnormal LFTs (liver function tests) Status: Acute Assessment and plan: Unclear etiology. Normal LFTs on admission. No abdominal pain, N/V. Abdominal U/S limited yesterday given significant gaseous distention. Check CT a/p. Check hepatitis panel. Pharmacy consult to see if any inpatient medications are causing abnormal LFTs. Current Visit: Yes (7) Rheumatoid arthritis Status: Chronic Assessment and plan: Chronic and remarkably stable. Current Visit: Yes (8) Right hemiparesis Status: Chronic Assessment and plan: S/P CVA. Stable. However, mobility very limited at baseline. Current Visit: Yes (9) Fluid overload Status: Acute Assessment and plan: Admission weight 86kg and now 93kg. Lasix. Check CXR. BNP mildly elevated. Current Visit: Yes - Time Spent With Patient Total time spent with greater than 50% in coordination of care (as documented) at patient's floor/unit and/or counseling patient: Estimated anticipated discharge: 1-3 days Quality Questions - VTE Prophylaxis Assessment VTE Present on Admission?: No Patient at risk for venous thromboembolism?: Yes VTE Risk Level: High Risk Pharmaceutical VTE prophylaxis contraindication reason: N/A- VTE prophylaxsis ordered Mechanical VTE prophylaxis contraindication reason: N/A- VTE prophylaxsis ordered (1) Supracondylar fracture of right femur Qualifiers: Encounter type: initial encounter Fracture type: closed Qualified Code(s): S72.451A - Displaced supracondylar fracture without intracondylar extension of lower end of right femur, initial encounter for closed fracture (2) Anemia Qualifiers: Anemia type: iron deficiency Iron deficiency anemia type: unspecified iron deficiency Qualified Code(s): D50.9 - Iron deficiency anemia, unspecified (5) Hypertension Qualifiers: Hypertension type: essential hypertension Qualified Code(s): I10 - Essential (primary) hypertension
[2016-10-28] MEDS ORDERED: FUROSEMIDE 20 MG/2 ML VIAL IV PRN (09:00)
[2016-10-28] MEDS ORDERED: DIPHENHYDRAMINE 25 MG CAPSULE PO PRN (09:00)
[2016-10-28] MEDS: metoprolol SUCC ER 25 MG TABLET PO SCH (09:43)
[2016-10-28] MEDS: ASCORBIC ACID 500 MG TABLET PO SCH ×2 (09:44→23:06)
[2016-10-28] MEDS: MULTIVITAMINS THERAPEUTIC 1 TABLET PO SCH (09:44)
[2016-10-28] MEDS: FOLIC ACID 1 MG TABLET PO SCH (09:44)
[2016-10-28] MEDS: ENOXAPARIN SODIUM 40 MG/0.4 ML SYR SUBCUT SCH (09:46)
[2016-10-28 10:12] LABS: URINE MUCUS NONE SEEN (Up to 25%); URINE SQUAMOUS EPITHELIAL CELL NONE SEEN (<= 15/hpf); URINE WBC NONE SEEN (0-4/hpf)
[2016-10-28 10:18] LABS: URINE APPEARANCE CLEAR; URINE BILIRUBIN NEGATIVE (NEGATIVE); URINE BLOOD TRACE (NEGATIVE); URINE COLOR YELLOW; URINE GLUCOSE NORMAL (NEGATIVE); URINE KETONE NEGATIVE (NEGATIVE); URINE LEUKOCYTE ESTERASE NEGATIVE (NEGATIVE); URINE NITRITE NEGATIVE (NEGATIVE); URINE PH 6.5 (5-7); URINE PROTEIN NEGATIVE (NEG - TRACE); URINE RBC 0-5/hpf (0-5/hpf); URINE SPECIFIC GRAVITY 1.015 (0.001-1.035); URINE UROBILINOGEN 0.2mg/dL (Normal) (NEG-1mg/dL)
[2016-10-28 10:19] LABS: URINE BACTERIA NONE SEEN (<10/hpf); URINE CALCIUM OXALATE CRYSTALS OCCASIONAL (Occasional)
[2016-10-28 11:11] LABS: ABO GROUP TYPE A; ANTIBODY SCREEN NEGATIVE; RH TYPE POSITIVE
[2016-10-28] MEDS ORDERED: NORMAL SALINE 250 ML IV ONE (13:54)
--- NOTE | 2016-10-28 14:10 | CT REPORT ---
HISTORY: Abnormal LFTs. COMPARISON: No previous CT for comparison. Correlation is made with abdominal ultrasound dated 10/27/2016. TECHNIQUE: This examination was performed using automated exposure control, adjustment of mA or kV according to patient size, and/or use of iterative reconstruction technique. Multiple contiguous axial images were obtained from the lung bases through the pubic symphysis following administration of intravenous con trast. 100cc Isovue 300 contrast. FINDINGS: There are bilateral pleural effusions, left greater than right. The left effusion layers out to a dep th of 2.7 cm. The density is suggestive of transudate. There is bibasilar subsegmental consolidation, right greater than left. The heart is not enlarged. There is no pericardial effusion. Atheroscleroti c calcifications are noted in the region the left anterior descending coronary artery. Abdomen/pelvis: There are scattered, subcentimeter circumscribed nonenhancing hypodensities throughou t the liver. These are nonspecific findings and difficult to evaluate due to the small size. Statisti fred they most likely represent cysts or hamartomas. The gallbladder is contracted. There are at [address] 2 calcified stones. The largest measures 6 mm in diameter. Common bile duct is dilated measuring 8 to 9 mm in diameter. There are stranding of 5 mm in diameter calcified filling defects in the distal common bile duct consistent with choledocholithiasis. The spleen is normal in appearance. There is no pancreatic mass or ductal dilatation. There are no adrenal masses. There is a 7.3 x 6.9 cm simple appearing exophytic cyst off the superior pole of the right kidney. There is a 2.1 cm exoph ytic cyst off the posterior medial aspect of the mid body of the left kidney. No hydronephrosis. Ther e is mild bilateral perinephric stranding. No renal or ureteral calculi. There is a large volume of gas and some stool scattered throughout the colon from the cecum through t he descending colon. The rectosigmoid colon demonstrates gas. Sigmoid is elongated. There is the appe arance of concentric wall thickening of the distal rectosigmoid colon but this may be due to a lack o f distention. No free air or pneumatosis. No pathologic gastric or small bowel distention. There is a small amount of free fluid in the dependent portion of the pelvis. There is diffuse mesenteric edema and subcutaneous edema consistent with third spacing of fluid. The re is atherosclerosis of the abdominal aorta. No aneurysm. The IVC is flattened which can be seen wit h intravascular volume depletion. No pathologic adenopathy is identified. Catheter is present within the bladder which is decompressed. Postoperative changes of previous internal fixation of the right femoral hip fracture noted. IMPRESSION: 1. Cholelithiasis with contracted gallbladder. 2. Choledocholithiasis. Common bile duct measures up to 9 mm in diameter. There are multiple CBD ston es distally near the ampulla. 3. Large volume of gas and stool scattered throughout the colon. 4. Small bilateral pleural effusions and bibasilar pulmonary consolidation, right greater than left. 5. Diffuse subcutaneous and mesenteric edema consistent with third spacing of fluid. 6. Postoperative changes of open reduction internal fixation of a right femoral hip fracture. Results were communicated to TRISTEN TOVAR MD at 10/28/2016 2:03 PM. Final Electronic Signature: This report was electronically signed by Cayden Fink MD on 10/28/2016 2: 08 PM. [facility] /
[2016-10-28 14:18] LABS: CROSSMATCH IMMEDIATE SPIN COMPATIBLE
[2016-10-28] MEDS: ACETAMINOPHEN 325 MG TABLET PO PRN (14:29)
--- NOTE | 2016-10-28 15:39 | RADIOLOGY REPORT ---
A limited single portable view of the chest, without prior films for comparison , demonstrates a limited degree of inspiration. Considering this the heart and vessels are unremarkable. The right lung field is grossly clear. Left basilar atelectasis/infiltrate is noted. The left upper lung field is clear. No fluid or pneumothorax is seen. IMPRESSION: Left basilar atelectasis/infiltrate. The findings were personally reviewed with Dr. Rayo upon completion of the examination. ANGELIKA
--- NOTE | 2016-10-28 17:47 | RADIOLOGY REPORT ---
Four limited views of the right knee from the C-Arm in the operating room are compared with films earlier on the same date. There has been interval open reduction and internal fixation of the distal femur fracture, which is secured with a plate, multiple screws and a cerclage wire. No other change is identified. IMPRESSION: Interval open reduction and internal fixation of the right distal femur fracture. ANGELIKA
[2016-10-28 17:50] LABS: FOLATES 17.6 ng/mL (3.0-16.0)
[2016-10-28 19:54] LABS: HEMATOCRIT 30.5 % (42.0-54.0); HEMOGLOBIN 10.5 g/dL (14.0-18.0)
[2016-10-28] MEDS: BISACODYL 10 MG SUPP.RECT RECTAL SCH (22:00)
[2016-10-28] MEDS: POLYETHYLENE GLYCOL 3350 17 GM POWD.PACK PO SCH (22:01)
[2016-10-29 06:16] LABS: BASOPHILS 0.2 % (0.0-2.0); EOSINOPHILS 7.3 % (0.0-6.0); EOSINOPHILS# 0.4 X 10^3uL (0.0-0.4); HEMATOCRIT 31.4 % (42.0-54.0); HEMOGLOBIN 10.6 g/dL (14.0-18.0); LYMPHOCYTES# 0.8 X 10^3uL (0.8-3.8); MEAN CELL VOLUME 88.4 fL (80.0-100.0); MEAN CORPUS. HGB CONCENTRATION 33.8 g/dL (32.0-36.0); MEAN CORPUSCULAR HEMOGLOBIN 29.9 pg (29.0-35.0); MEAN PLATELET VOLUME 6.7 fL (7.4-10.4); MONOCYTES 10.2 % (2.0-10.0); MONOCYTES# 0.6 X 10^3uL (0.2-1.0); NEUTROPHILS 67.3 % (54.0-75.0); NEUTROPHILS# 3.8 X 10^3uL (2.6-6.7); PLATELET COUNT 328 X 10^3uL (130-440); RED BLOOD COUNT 3.55 X 10^6uL (4.20-6.10); WHITE BLOOD COUNT 5.6 X 10^3uL (3.9-10.7)
[2016-10-29 06:23] LABS: A/G RATIO 0.8; ALBUMIN 2.7 g/dL (3.5-5.0); ALKALINE PHOSPHATASE 57 U/L (38-126); ALT 85 U/L (21-72); AST 73 U/L (17-59); BILIRUBIN, TOTAL 3.2 mg/dL (0.2-1.3); BLOOD UREA NITROGEN 9 mg/dL (9-20); CALCIUM 7.7 mg/dL (8.4-10.2); CHLORIDE 103 mmol/L (98-107); CREATININE 0.5 mg/dL (0.7-1.3); EST GLOMERULAR FILTRATION RATE > 60 mL/min; GLUCOSE 102 mg/dL (70-100); POTASSIUM 3.3 mmol/L (3.5-5.1); SODIUM 139 mmol/L (137-145)
[2016-10-29] MEDS ORDERED: POTASSIUM CHLORIDE ER 20 MEQ TABLET PO SCH (08:00)
--- NOTE | 2016-10-29 08:27 | DC SUMMARY: IM Note ---
Discharge Summary: IM/Peds Provider: Date of Admission: 10/23/16 Admitting Provider: BERYL RODRIGUEZ DO Attending Provider: TRISTEN TOVAR MD Discharging Provider: TRISTEN TOVAR MD Primary Care Provider: Discharge Date: 10/29/16 Consults: 10/24/16 18:22 Podiatry Consult [CONS] Routine Reason: Bilateral feet, toe nails need cut/trimmed. 10/26/16 18:40 Cardiology Consult [CONS] Routine Reason: 76 yo M with hx CVA, hypertension (off medications) who was admitted and had right femur ORIF on 10/23, was doing well post op, slightly low BPs but asymptomatic, blood transfusion 10/25. On 10/26 noted to have frequent PVCs (asymptomatic). Please help evaluate for potential structural heart disease vs need to restart BB 10/28/16 09:07 Oncology Consult [CONS] Routine Reason: Dr. Pugh. Iron deficiency anemia. - Diagnosis (1) Supracondylar fracture of right femur Status: Acute Qualifiers: Encounter type: initial encounter Fracture type: closed Qualified Code(s): S72.451A - Displaced supracondylar fracture without intracondylar extension of lower end of right femur, initial encounter for closed fracture (2) Anemia Status: Acute Qualifiers: Anemia type: iron deficiency Iron deficiency anemia type: unspecified iron deficiency Qualified Code(s): D50.9 - Iron deficiency anemia, unspecified (3) History of CVA (cerebrovascular accident) Status: Chronic (4) PVC (premature ventricular contraction) Status: Acute (5) Hypertension Status: Chronic Qualifiers: Hypertension type: essential hypertension Qualified Code(s): I10 - Essential (primary) hypertension (6) Abnormal LFTs (liver function tests) Status: Acute (7) Rheumatoid arthritis Status: Chronic (8) Right hemiparesis Status: Chronic (9) Fluid overload Status: Acute (10) Cholecystitis Status: Acute - Time Spent with Patient Total time spent providing and/or coordinating discharge services: Time with patient DS: Greater than 30 minutes Discharge - Patient/Caregiver Discharge Instructions Activity Level: Per PT recommendations. Bedrest with gradual transiton back to wheelchair. Diet: Regular Overall discharge status: patient is progressing back to baseline Print Language: YAKUT Disposition: [facility] Discharge Summary Data - Medication History Medication History: Home Medications Acetaminophen [Tylenol Extra Strength] 1,000 mg PO Q6H PRN 10/28/16 Arginine 500 mg PO DAILY 10/28/16 Multivitamins,Therapeutic [Thera] 1 udtab PO DAILY 10/28/16 Potassium Chloride ER [K-Dur*] 1 tab PO HS 10/28/16 Inpatient Medications 10/23/16 17:37 Acetaminophen [Tylenol] 325 mg PO Q4H PRN Ascorbic Acid [Vitamin C] 500 mg PO BID Folic Acid [Folate] 1 mg PO DAILY HYDROcodone/APAP 5/325 MG [[place]] 2 tab PO Q3H PRN Multivitamins,Therapeutic [Thera] 1 tab PO DAILY Ondansetron HCl [Zofran] 4 mg IV Q4H PRN 10/24/16 09:00 Enoxaparin Sodium [Lovenox] 40 mg SUBCUT DAILY 10/27/16 09:00 metoprolol SUCC ER [topROL XL] 25 mg PO DAILY 10/28/16 09:00 Acetaminophen [Tylenol] 650 mg PO ONCE PRN Diphenhydramine [Benadryl] 25 mg PO ONCE PRN Furosemide [Lasix Inj] 20 mg IV .BETWEEN UNITS PRN 10/28/16 19:15 Bisacodyl [Dulcolax] 10 mg RECTAL Q12H 10/28/16 21:00 Polyethylene Glycol 3350 [miraLAX] 17 gm PO BID 10/29/16 08:00 Potassium Chloride ER [K-Dur] 40 meq PO ONCE Procedures and tests throughout hospitalization: Completed Lab Orders 10/24/16 05:55 HGB & HCT PANEL [HEM] AMDRAW PLATELET COUNT [HEM] AMDRAW 10/24/16 17:00 CBC AUTO DIF, MDIF/RMOR IF IND [HEM] Routine 10/25/16 06:00 HGB & HCT PANEL [HEM] AMDRAW 10/25/16 19:15 CROSSMATCH IMMEDIATE SPIN [HEM] Stat 10/26/16 06:00 HGB & HCT PANEL [HEM] AMDRAW 10/26/16 16:45 MAGNESIUM [CHEM] Routine cmp [COMPREHENSIVE METABOLIC PANEL] [CHEM] Routine 10/27/16 05:25 CBC AUTO DIF, MDIF/RMOR IF IND [HEM] AMDRAW COMPREHENSIVE METABOLIC PANEL [CHEM] AMDRAW MAGNESIUM [CHEM] AMDRAW PHOSPHORUS [CHEM] AMDRAW PT/INR [PROTIME/INR] [HEM] Stat TSH [THYROID STIMULATING HORMONE] [CHEM] AMDRAW ptt [PARTIAL THROMBOPLASTIN TIME] [HEM] Stat 10/28/16 05:55 BNP,NT-PRO [CHEM] Routine CBC AUTO DIF, MDIF/RMOR IF IND [HEM] AMDRAW FOLATES [CHEM] AMDRAW IRON PANEL [CHEM] Routine VITAMIN B12 [CHEM] AMDRAW cmp [COMPREHENSIVE METABOLIC PANEL] [CHEM] AMDRAW 10/28/16 09:00 urinalysis [UA W/ MICRO -CULTURE IF IND] [URINE] Routine 10/28/16 10:00 ABO GROUP [HEM] Stat ANTIBODY SCREEN [HEM] Stat CROSSMATCH IMMEDIATE SPIN [HEM] Stat HEPATITIS B SURFACE ANTIGEN [CHEM] Routine RH TYPE [HEM] Stat 10/28/16 19:50 HEMATOCRIT [HEM] Routine HEMOGLOBIN [HEM] Routine 10/29/16 05:55 BNP,NT-PRO [CHEM] AMDRAW CBC AUTO DIF, MDIF/RMOR IF IND [HEM] AMDRAW cmp [COMPREHENSIVE METABOLIC PANEL] [CHEM] AMDRAW Completed Imaging Orders 10/23/16 15:27 FLUOROSCOPY, UP TO 1 [id number] [FLUORO] Routine 10/23/16 15:28 KNEE; 4 [place] [id number] [RAD] Routine 10/27/16 08:22 US ABDOMEN, COMPLETE [id number] [US] Routine 10/28/16 07:13 CHEST; SINGLE VIEW [id number] [RAD] Stat 10/28/16 09:07 ct [CAT SCAN; ABD/PEL W [id number]] [CT] Routine Completed Microbiology Orders 10/25/16 03:35 OCCULT BLOOD (1-3 SAMPLES) [RM] 10/28/16 19:15 Hemoccult [OCCULT BLOOD (1-3 SAMPLES)] [RM] Pending Orders 10/23/16 16:12 Marce hugger if temp <34 C PRN Did pt have a spinal/epidural? . Maintain IV access post spinal CONTINUOUS Monitor End Tidal CO2 CONTINUOUS Narcan @ bedside x24h after sp .x24hrs Notify Anesthesia . Oxygen by Nasal Cannula TITRATE TO >90% Titrate Oxygen TITRATE TO >90% Vital Signs Q1HX12,Q2H Warm blankets if temp<36 C PRN 10/23/16 17:37 Admit: Inpatient Routine Activity: NWB CONTINUOUS Apply ice to affected area PRN Circulatory Sensory Motor Asse Q15MX4,Q30MX2,Q1HX2,Q4H Incentive Spirometry Q1H Intake and Output QSHIFT I&O Titrate Oxygen TITRATE TO >90% Turn, Cough, and Deep Breathe Q2H Vital Signs ROUTINE VITALS (Q4H) Acetaminophen [Tylenol] 325 mg PO Q4H PRN Ascorbic Acid [Vitamin C] 500 mg PO BID Folic Acid [Folate] 1 mg PO DAILY HYDROcodone/APAP 5/325 MG [[place]] 2 tab PO Q3H PRN Multivitamins,Therapeutic [Thera] 1 tab PO DAILY Ondansetron HCl [Zofran] 4 mg IV Q4H PRN 10/23/16 Dinner Regular [DIET] 10/24/16 09:00 Enoxaparin Sodium [Lovenox] 40 mg SUBCUT DAILY 10/24/16 11:54 Physical Therapy Plan of Care [PT] Routine 10/24/16 15:02 Place patient on air mattress . 10/24/16 18:22 Podiatry Consult [CONS] Routine 10/26/16 16:29 Telemetry monitoring CONTINUOUS TELE 10/26/16 18:40 Cardiology Consult [CONS] Routine 10/27/16 08:42 Echocardiogram [CARDIO] Routine 10/27/16 09:00 metoprolol SUCC ER [topROL XL] 25 mg PO DAILY 10/27/16 21:27 Obtain weight 0600 10/28/16 09:00 Acetaminophen [Tylenol] 650 mg PO ONCE PRN Diphenhydramine [Benadryl] 25 mg PO ONCE PRN Furosemide [Lasix Inj] 20 mg IV .BETWEEN UNITS PRN 10/28/16 09:06 Post Transfusion H&H ONCE 10/28/16 09:07 Oncology Consult [CONS] Routine 10/28/16 10:00 HEPATITIS A IGM ONLY [SEND] Routine HEPATITIS A TOTAL AB [SEND] Routine HEPATITIS B CORE IGM AB [SEND] Routine HEPATITIS B CORE TOTAL AB [SEND] Routine HEPATITIS B SURFACE AB [SEND] Routine HEPATITIS Be AB [SEND] Routine HEPATITIS C TOTAL AB [SEND] Routine 10/28/16 18:55 Resuscitation Status Routine 10/28/16 19:15 Bisacodyl [Dulcolax] 10 mg RECTAL Q12H 10/28/16 21:00 Polyethylene Glycol 3350 [miraLAX] 17 gm PO BID 10/29/16 08:00 Potassium Chloride ER [K-Dur] 40 meq PO ONCE Labs on day of discharge: Labs from last 24 hours 10/29/16 10/28/16 10/28/16 05:55 19:50 10:00 WBC 5.6 RBC 3.55 L Hgb 10.6 L 10.5 L Hct 31.4 L 30.5 L MCV 88.4 MCH 29.9 MCHC 33.8 RDW 13.0 Plt Count 328 MPV 6.7 L Neutrophils % 67.3 Lymphocytes % 15.0 L Eosinophils % 7.3 H Basophils % 0.2 Neutrophils # 3.8 Lymphocytes # 0.8 Monocytes 10.2 H Monocytes # 0.6 Eosinophils # 0.4 Basophils # 0.0 Sodium 139 Potassium 3.3 L Chloride 103 Carbon Dioxide 29 BUN 9 Creatinine 0.5 L GFR Calculation > 60 Glucose 102 H Calcium 7.7 L Iron TIBC Transferrin Transferrin % Sat Total Bilirubin 3.2 H D AST 73 H ALT 85 H Alkaline Phosphatase 57 NT-Pro-B Natriuret Pep 1070 H Total Protein 6.0 L Albumin 2.7 L Albumin/Globulin Ratio 0.8 Vitamin B12 Folic Acid Urine Color Urine Appearance Urine pH Ur Specific [place] Urine Protein Urine Ketones Urine Blood Urine Nitrate Urine Bilirubin Urine Urobilinogen Ur Leukocyte Esterase Urine RBC Urine WBC Ur Squamous Epith Cells Calcium Oxalate Crystal Urine Bacteria Urine Mucus Urine Glucose Hepatitis A IgM Ab Hepatitis A Ab Total Hep Bs Antigen Negative Hep Bs Antibody Hep B Core Total Ab Hep B Core IgM Ab Conf Hepatitis Be Antibody Hepatitis C Antibody ABO Group Rh Factor Antibody Screen Crossmatch 10/28/16 10/28/16 10/28/16 10:00 10:00 10:00 WBC RBC Hgb Hct MCV MCH MCHC RDW Plt Count MPV Neutrophils % Lymphocytes % Eosinophils % Basophils % Neutrophils # Lymphocytes # Monocytes Monocytes # Eosinophils # Basophils # Sodium Potassium Chloride Carbon Dioxide BUN Creatinine GFR Calculation Glucose Calcium Iron TIBC Transferrin Transferrin % Sat Total Bilirubin AST ALT Alkaline Phosphatase NT-Pro-B Natriuret Pep Total Protein Albumin Albumin/Globulin Ratio Vitamin B12 Folic Acid Urine Color Urine Appearance Urine pH Ur Specific [place] Urine Protein Urine Ketones Urine Blood Urine Nitrate Urine Bilirubin Urine Urobilinogen Ur Leukocyte Esterase Urine RBC Urine WBC Ur Squamous Epith Cells Calcium Oxalate Crystal Urine Bacteria Urine Mucus Urine Glucose Hepatitis A IgM Ab Pending Hepatitis A Ab Total Pending Hep Bs Antigen Hep Bs Antibody Pending Hep B Core Total Ab Pending Hep B Core IgM Ab Conf Pending Hepatitis Be Antibody Pending Hepatitis C Antibody Pending ABO Group Rh Factor Antibody Screen Crossmatch 10/28/16 10/28/16 10/28/16 10:00 10:00 09:00 WBC RBC Hgb Hct MCV MCH MCHC RDW Plt Count MPV Neutrophils % Lymphocytes % Eosinophils % Basophils % Neutrophils # Lymphocytes # Monocytes Monocytes # Eosinophils # Basophils # Sodium Potassium Chloride Carbon Dioxide BUN Creatinine GFR Calculation Glucose Calcium Iron TIBC Transferrin Transferrin % Sat Total Bilirubin AST ALT Alkaline Phosphatase NT-Pro-B Natriuret Pep Total Protein Albumin Albumin/Globulin Ratio Vitamin B12 Folic Acid Urine Color Yellow Urine Appearance Clear Urine pH 6.5 Ur Specific [place] 1.015 Urine Protein Negative Urine Ketones Negative Urine Blood Trace A Urine Nitrate Negative Urine Bilirubin Negative Urine Urobilinogen 0.2mg/dl (normal) Ur Leukocyte Esterase Negative Urine RBC 0-5/hpf Urine WBC None seen Ur Squamous Epith Cells None seen Calcium Oxalate Crystal Occasional Urine Bacteria None seen Urine Mucus None seen Urine Glucose Normal Hepatitis A IgM Ab Hepatitis A Ab Total Hep Bs Antigen Hep Bs Antibody Hep B Core Total Ab Hep B Core IgM Ab Conf Hepatitis Be Antibody Hepatitis C Antibody ABO Group Type a Rh Factor Positive Antibody Screen Negative Crossmatch Compatible Compatible 10/28/16 05:55 WBC RBC Hgb Hct MCV MCH MCHC RDW Plt Count MPV Neutrophils % Lymphocytes % Eosinophils % Basophils % Neutrophils # Lymphocytes # Monocytes Monocytes # Eosinophils # Basophils # Sodium Potassium Chloride Carbon Dioxide BUN Creatinine GFR Calculation Glucose Calcium Iron Cancelled TIBC Cancelled Transferrin Cancelled Transferrin % Sat Cancelled Total Bilirubin AST ALT Alkaline Phosphatase NT-Pro-B Natriuret Pep Total Protein Albumin Albumin/Globulin Ratio Vitamin B12 525 Folic Acid 17.6 H Urine Color Urine Appearance Urine pH Ur Specific [place] Urine Protein Urine Ketones Urine Blood Urine Nitrate Urine Bilirubin Urine Urobilinogen Ur Leukocyte Esterase Urine RBC Urine WBC Ur Squamous Epith Cells Calcium Oxalate Crystal Urine Bacteria Urine Mucus Urine Glucose Hepatitis A IgM Ab Hepatitis A Ab Total Hep Bs Antigen Hep Bs Antibody Hep B Core Total Ab Hep B Core IgM Ab Conf Hepatitis Be Antibody Hepatitis C Antibody ABO Group Rh Factor Antibody Screen Crossmatch - Impressions See dictation. IM: Discharge Physical Exam - I&O/Vital Signs I&O: Intake & Output 10/28/16 10/29/16 10/29/16 21:59 05:59 13:59 Intake Total 1428 590 Output Total 2400 225 Balance -972 365 Weight 92.5 kg Intake: Oral 668 590 Blood Product 760 Output: Urine 2400 225 Other: Urine Appearance Clear Clear Urine Color Light Ina Light Ina Stool Size Moderate Large Stool Characteristics Liquid Liquid Black Voiding Method Urinal Urinal # Bowel Movements 1 1 Vital Signs: Last Vital Signs Temp 36.9 C 10/29/16 05:53 Pulse 62 10/29/16 05:53 Resp 16 10/29/16 05:53 BP 113/54 10/29/16 05:53 Pulse Ox 92 10/29/16 05:53 Oxygen Flow Rate 2 Oxygen Delivery Method Nasal Cannula - Constitutional General appearance: Present: average body habitus, cooperative, other (He ). Absent: acute distress - Head Head exam: Present: atraumatic, normal inspection - Eye Eye exam: Present: conjunctival injection (Conjunctivae pale yesterday and injected today.), EOMI, PERRL, other (Con) - ENT ENT exam: Present: mucous membranes moist - Neck Neck exam: Present: normal inspection. Absent: tenderness - Respiratory Respiratory exam: Present: clear, other (Improved aeration today). Absent: accessory muscle use, rales, respiratory distress, wheezes - Cardiovascular Cardiovascular exam: Present: RRR (No ectopy today.). Absent: systolic murmur - GI/Abdominal GI/Abdominal exam: Present: normal bowel sounds, soft. Absent: distended, mass , organomegaly, tenderness - Extremities Exam Extremities exam: Present: edema (RLE trace. LLE no edema. Chronic venous stasis changes, L>R. Better than baseline. ), other (Erythematous, papular rash BLE in areas of SCDs c/w contact dermatitis: improved today.). Absent: calf tenderness - Neurological Exam Neurological exam: Present: alert, oriented X3, other (Cognition improved today. ) - Psychiatric Psychiatric exam: Present: normal affect, normal mood - Allied Health Notes Allied health notes reviewed: case management, nursing, OT
[2016-10-29] MEDS ORDERED: HOME MEDICATION LIST NEEDED 1 EA EACH MC ONE (08:49)
[2016-10-29] MEDS ORDERED: ACETAMINOPHEN 650 MG SUPP PR PRN (08:55)
[2016-10-29] MEDS ORDERED: MAGNESIUM HYDROXIDE 30 ML UDC PO PRN (08:55)
[2016-10-29] MEDS ORDERED: GLYCERIN ADULT 2 GM SUPP.RECT PR PRN (08:55)
[2016-10-29] MEDS ORDERED: ARGININE 500 MG PO SCH (09:00)
[2016-10-29] MEDS ORDERED: ACETAMINOPHEN 500 MG TABLET PO PRN (09:00)
[2016-10-29] MEDS ORDERED: MULTIVITAMINS THERAPEUTIC 1 TABLET PO SCH (09:00)
[2016-10-29] MEDS: ACETAMINOPHEN 325 MG TABLET PO PRN (09:00)
[2016-10-29] MEDS: ASCORBIC ACID 500 MG TABLET PO SCH (09:01)
[2016-10-29] MEDS: MULTIVITAMINS THERAPEUTIC 1 TABLET PO SCH (09:01)
[2016-10-29] MEDS: ENOXAPARIN SODIUM 40 MG/0.4 ML SYR SUBCUT SCH (09:01)
[2016-10-29] MEDS: FOLIC ACID 1 MG TABLET PO SCH (09:01)
[2016-10-29] MEDS: metoprolol SUCC ER 25 MG TABLET PO SCH (09:01)
[2016-10-29] MEDS: POLYETHYLENE GLYCOL 3350 17 GM POWD.PACK PO SCH (09:02)
[2016-10-29] MEDS: BISACODYL 10 MG SUPP.RECT RECTAL SCH (09:02)
[2016-10-29] MEDS ORDERED: GLYCERIN ADULT 2 GM SUPP.RECT RECTAL PRN (09:17)
[2016-10-29 13:42] LABS: HEPATITIS A IGM ONLY Negative (Negative); HEPATITIS A TOTAL AB SEE COMMENTS (()); HEPATITIS B CORE IGM AB SEE COMMENTS (()); HEPATITIS B CORE TOTAL AB SEE COMMENTS (()); HEPATITIS B SURFACE AB SEE COMMENTS (()); HEPATITIS Be AB SEE COMMENTS (())
[2016-10-29 15:00] VITALS: BP 107/73; PULSE 76; RESP 28; TEMP 98.2; O2SAT 90
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
[2016-10-30] MEDS ORDERED: MULTIVITAMINS THERAPEUTIC 1 TABLET PO SCH (09:00)
[2016-10-30] MEDS ORDERED: ARGININE 500 MG PO SCH (09:00)
== END 2016-10-29 15:41 | disposition swing bed (61) | DRG 481 ==
LOC: ER 05:44 → SDS 07:15 → IN 09:07 → UNDOADMIN 09:07 → IN 10:47
PROVIDERS: ADMIT Orthopaedic Surgery; ATTEND Family Medicine
PROC: 0QSB04Z Reposition Right Lower Femur with Internal Fixation Device, Open Approach (ICD-10-PCS; principal; 2016-10-23)
DX: S72.451A Displaced supracondylar fracture without intracondylar extension of lower end of right femur, initial encounter for closed fracture (principal); I69.351 Hemiplegia and hemiparesis following cerebral infarction affecting right dominant side; E46 Unspecified protein-calorie malnutrition; W06.XXXA Fall from bed, initial encounter; D50.8 Other iron deficiency anemias; I10 Essential (primary) hypertension; E86.0 Dehydration; E87.6 Hypokalemia; K59.00 Constipation, unspecified; I87.2 Venous insufficiency (chronic) (peripheral); I49.3 Ventricular premature depolarization; M06.9 Rheumatoid arthritis, unspecified; K80.20 Calculus of gallbladder without cholecystitis without obstruction; R79.89 Other specified abnormal findings of blood chemistry; Z79.899 Other long term (current) drug therapy; Z74.3 Need for continuous supervision
CPT/HCPCS: 36415; 36430; 71010; 74177; 76000; 76700; 80048; 80053; 80076; 81001; 82270; 82607; 82747; 83540; 83735; 83880; 84100; 84443; 84466; 85014; 85018; 85025; 85049; 85610; 85730; 86704; 86705; 86706; 86707; 86708; 86709; 86803; 86850; 86900; 86901; 86920; 87340; 93005; 93041; 93306; 96361; 96365; 96375; 99285; A0425; A0429; C1713; J0690; J1650; J1940; J3480; J7040; J7050; J7120; P9040-BL

== ENCOUNTER 2016-10-27 08:16 | Inpatient (IN) | payer MEDICARE ==
--- NOTE | 2016-10-27 12:25 | CONSULTATION ---
DATE OF CONSULTATION: 10/27/16 FARM MANAGEMENT PROFESSOR: Benito Capone MD IDENTIFYING DATA: A 76-year-old male. REASON FOR CONSULTATION: PVCs. HISTORY OF PRESENT ILLNESS: I was asked by Dr. Rayo to evaluate the patient regarding frequent PVCs. Patient has no prior cardiac history, although does have a history of hypertension and a prior stroke. He also had rheumatoid arthritis and lives by himself. Patient subsequently fell and was noted to have a right hip fracture. He underwent a open reduction, internal fixation . Postop was fairly unremarkable, although he was noted to have frequent PVCs. Patient denied any chest pain, shortness of breath and/or palpitations. He has had no lightheadedness and/or syncope. PAST MEDICAL HISTORY, ILLNESSES AND SURGERIES: Please refer to admission history and physical for further details. 1. Remote cerebrovascular accident. 2. Hypertension. 3. Rheumatoid arthritis. ALLERGIES AND MEDICATIONS: Please refer to medication reconciliation list. SOCIAL HISTORY: A long history of tobacco and alcohol. He quit at the time of his stroke. FAMILY HISTORY: Negative for premature cardiovascular disease. REVIEW OF SYSTEMS: Remaining comprehensive review of systems is negative. PHYSICAL EXAMINATION CONSTITUTIONAL: Elderly appearing gentleman in no acute distress. VITAL SIGNS: Blood pressure 110/56 with a pulse of 61 and regular. Respiratory rate 22. Saturating 92% on 1.5 liters. HEENT: Normocephalic, atraumatic. Ears, eyes, nose and throat are unremarkable with no masses or lesions. NECK: No obvious jugular venous distention. Carotid upstrokes are brisk without bruits. Neck is supple with no masses or lesions. CARDIOVASCULAR: PMI is nondisplaced. Heart is a regular rate and rhythm without a murmur, gallop or rub. RESPIRATORY: Clear to auscultate bilaterally without wheezes, crackles or rhonchi. ABDOMEN: Bowel sounds present. Nontender, nondistended. No hepatosplenomegaly. EXTREMITIES: No clubbing, cyanosis and/or edema. Perfused. NEUROLOGICAL: Right sided weakness. No speech deficit. PSYCH: Alert and oriented x3. LABORATORY DATA: EKG demonstrates a normal sinus rhythm. No evidence of ischemia and/or infarction. There were unifocal PVCs. Telemetry strip also reviewed. Frequent unifocal PVCs with no ventricular runs. White blood cell count 7.3, hemoglobin 8.6, platelet count at 265. Sodium 137, potassium 3.4. BUN and creatinine are 11 and 0.6 respectively. His magnesium is 2.0. LFTs are up. TSH is normal. ASSESSMENT 1. Electrolyte abnormality. Hyponatremia with hypokalemia. Normal magnesium. 2. Hypertension. Patient is now normotensive. 3. Prior stroke. 4. Prior tobacco and alcohol use. 5. Frequent PVCs. PLAN: EKG demonstrates no evidence of prior ischemia and/or infarction. I would like to obtain an echocardiogram to assess systolic performance. At the present time I do not believe he needs a myocardial perfusion scan unless it becomes symptomatic or his ejection fraction is less than 50%. I would recommend to correct electrolytes. We will add low-dose beta-waldemar. Will add aspirin if his hematocrit stabilizes. It is a pleasure to participate in the care of this patient. Please do not hesitate to call for further questions. Copies to: Dr. Girma CARNEY
[2016-10-29] MEDS ORDERED: NA PHOS,M-B/NA PHOS,DI-BA 133 ML BTL PR PRN (14:48)
[2016-10-29] MEDS ORDERED: GLYCERIN ADULT 2 GM SUPP.RECT PR PRN (14:48)
[2016-10-29] MEDS ORDERED: MAGNESIUM HYDROXIDE 30 ML UDC PO PRN (14:48)
[2016-10-29] MEDS ORDERED: MAG-AL PLUS XS SUSP 30 ML UDC PO PRN (14:48)
[2016-10-29] MEDS ORDERED: POLYETHYLENE GLYCOL 3350 17 GM POWD.PACK PO PRN (14:48)
[2016-10-29] MEDS ORDERED: HOME MEDICATION LIST NEEDED 1 EA EACH MC ONE (14:48)
[2016-10-29] MEDS ORDERED: ACETAMINOPHEN 500 MG TABLET PO PRN (14:52)
[2016-10-29] MEDS ORDERED: BISACODYL 10 MG SUPP.RECT RECTAL SCH (15:00)
[2016-10-29] MEDS ORDERED: GLYCERIN ADULT 2 GM SUPP.RECT RECTAL PRN (15:57)
[2016-10-29] MEDS ORDERED: ONDANSETRON ODT 4 MG TAB.RAPDIS PO PRN (16:04)
[2016-10-29 16:24] LABS: URINE MUCUS NONE SEEN (Up to 25%); URINE SQUAMOUS EPITHELIAL CELL NONE SEEN (<= 15/hpf)
[2016-10-29 16:38] LABS: URINE APPEARANCE CLEAR; URINE COLOR AMBER; URINE GLUCOSE NORMAL (NEGATIVE); URINE KETONE 5mg/dL (NEGATIVE); URINE LEUKOCYTE ESTERASE NEGATIVE (NEGATIVE); URINE NITRITE NEGATIVE (NEGATIVE); URINE PH 5.5 (5-7); URINE PROTEIN 100mg/dL (2+) (NEG - TRACE); URINE UROBILINOGEN 8mg/dL (NEG-1mg/dL)
[2016-10-29 16:39] LABS: URINE BACTERIA <10 ORGANISMS/hpf (<10/hpf); URINE BILIRUBIN 0.5 mg/100ml (1+) (NEGATIVE); URINE BLOOD NEGATIVE (NEGATIVE); URINE CALCIUM OXALATE CRYSTALS MANY (Occasional); URINE RBC 0-5/hpf (0-5/hpf); URINE WBC 0-4/hpf (0-4/hpf)
[2016-10-29 16:40] LABS: URINE AMORPHOUS SEDIMENT NONE SEEN (Up to 25%)
[2016-10-29] MEDS: BISACODYL 10 MG SUPP.RECT PR SCH (21:39)
[2016-10-29] MEDS: ASCORBIC ACID 500 MG TABLET PO SCH (21:39)
[2016-10-29] MEDS: POLYETHYLENE GLYCOL 3350 17 GM POWD.PACK PO SCH (21:39)
[2016-10-30] MEDS: ACETAMINOPHEN 325 MG TABLET PO PRN ×2 (02:37→08:12)
[2016-10-30 06:32] LABS: ALBUMIN 2.6 g/dL (3.5-5.0); ALKALINE PHOSPHATASE 54 U/L (38-126); ALT 69 U/L (21-72); AST 49 U/L (17-59); BILIRUBIN, DIRECT 0.7 mg/dL (0.0-0.4); BILIRUBIN, TOTAL 2.9 mg/dL (0.2-1.3); BLOOD UREA NITROGEN 10 mg/dL (9-20); CALCIUM 7.5 mg/dL (8.4-10.2); CHLORIDE 104 mmol/L (98-107); EST GLOMERULAR FILTRATION RATE > 60 mL/min; GLUCOSE 99 mg/dL (70-100); POTASSIUM 3.3 mmol/L (3.5-5.1); SODIUM 140 mmol/L (137-145); TOTAL PROTEIN 5.8 g/dL (6.3-8.2)
[2016-10-30 07:01] LABS: WHITE BLOOD COUNT 8.8 X 10^3uL (3.9-10.7)
[2016-10-30 07:02] LABS: EOSINOPHIL % (Manual) 7 % (0.0-6.0); HEMOGLOBIN 9.4 g/dL (14.0-18.0); LYMPHOCYTE % (Manual) 18 % (20.0-40.0); MEAN CORPUS. HGB CONCENTRATION 32.6 g/dL (32.0-36.0); MEAN CORPUSCULAR HEMOGLOBIN 31.4 pg (29.0-35.0); MONOCYTE % (Manual) 8 % (2.0-10.0); NEUTROPHIL % (Manual) 67 % (54.0-75.0); PLATELET COUNT 330 X 10^3uL (130-440); PLATELET ESTIMATE ADEQUATE; RED BLOOD COUNT 3.01 X 10^6uL (4.20-6.10)
[2016-10-30] MEDS: ENOXAPARIN SODIUM 40 MG/0.4 ML SYR SUBCUT SCH (08:12)
[2016-10-30] MEDS: MULTIVITAMINS THERAPEUTIC 1 TABLET PO SCH (08:13)
[2016-10-30] MEDS: ASCORBIC ACID 500 MG TABLET PO SCH ×2 (08:13→20:14)
[2016-10-30] MEDS: metoprolol SUCC ER 25 MG TABLET PO SCH (08:13)
[2016-10-30] MEDS: BISACODYL 10 MG SUPP.RECT PR SCH ×2 (08:13→20:15)
[2016-10-30] MEDS: POLYETHYLENE GLYCOL 3350 17 GM POWD.PACK PO SCH ×2 (08:13→20:15)
[2016-10-30] MEDS: FOLIC ACID 1 MG TABLET PO SCH (08:13)
[2016-10-30] MEDS: ARGININE 500 MG PO SCH (08:17)
[2016-10-30] MEDS ORDERED: POTASSIUM CHLORIDE ER 20 MEQ TABLET PO SCH ×2 (10:00)
--- NOTE | 2016-10-30 12:52 | PROGRESS NOTE: IM APSO ---
Assessment and Plan - Date of Encounter Date of Encounter: 10/30/16 (1) Supracondylar fracture of right femur Status: Acute Assessment and plan: s/p ORIF right femur on 10/[address] Bean. Did have post op anemia requiring 4uPRBCs. Pain controlled currently with tylenol. With underlying baseline mobility issues from previous CVA anticipate prolonged rehab need. Transferred to swing bed status on 10/29, will continue rehab until plateau. May need transition to [facility] pending progress. Patient's ultimate goal would be to return home but very reasonable regarding additional care needs at this time. Covering for Girma today, Will ask Dr. Ng to see patient one time this weekend unless symptoms change. Current Visit: No (2) Abnormal LFTs (liver function tests) Status: Acute Assessment and plan: Evaluation found multiple gallstones with common bile duct dilation. High risk for cholangitis. Patient declined transfer for further work up/treatment. Continue watchful waiting. Currently asymptomatic and LFTs have returned to normal. Will repeat next week to monitor. Current Visit: No (3) Anemia Status: Acute Assessment and plan: Blood loss related to fracture/surgery- has received 4uPRBCs with with hemoglobin of 9 at this time. Patient states significant symptom improvement ( energy level, etc) after transfusion. Will order CBC this weekend for further monitoring of ongoing blood loss. Current Visit: No (4) PVC (premature ventricular contraction) Status: Acute Assessment and plan: Had cardiac evaluation with normal echocardiogram. Started back on low dose beta waldmear with stabilization in PVC frequency. Now DNR status and no longer on telemetry with swing bed. Patient asymptomatic at this time. Current Visit: No (5) History of CVA (cerebrovascular accident) Status: Chronic Assessment and plan: Baseline right sided hemiparesis and mobility issues as well as some memory changes. Current Visit: No (6) Hypertension Status: Chronic Assessment and plan: Self discontinued medications 3-6 months prior to this hospitalization. Initially was hypertensive but has been normotensive/slightly hypotensive since surgery. STarted on low dose BB for PVCs and tolerating thus far. continue to monitor. Current Visit: No (7) Rheumatoid arthritis Status: Chronic Assessment and plan: Multiple joint deformities on exam. Treated with acetaminophen for pain control Current Visit: No (8) Right hemiparesis Status: Chronic Assessment and plan: Related to previous CVA. Complicating rehab course. Current Visit: No - Time Spent With Patient Total time spent with greater than 50% in coordination of care (as documented) at patient's floor/unit and/or counseling patient: Greater than 35 minutes Estimated anticipated discharge: weeks IM: PN Subjective Interval history: Transitioned to swing bed yesterday, overall feeling pretty good. Now up in wheelchair but ongoing limited mobility (frequent turning in bed, etc). Did have some slight pain in his back- improved with 2 tyelenol- would like to try scheduled medication for pain (at home was taking 4000mg, understands won't be getting that much). Again denies abdominal pain. General: pain, no fever, no chills HEENT: no headache, no sore throat Cardiovascular: no chest pain, no dizziness Respiratory: no SOB Gastrointestinal: no abdominal pain, no vomiting, no diarrhea (continues to have slightly loose stools) Genitourinary: no flank pain Musculoskeletal: pain, swelling, weakness (baseline right sided, but also left side weakness from deconditioning) Neurological: limb weakness IM: PN Objective Exam - I&O/Vital Signs I&O: Intake & Output 10/29/16 10/30/16 10/30/16 21:59 05:59 13:59 Intake Total 1120 530 Output Total 250 385 Balance 870 145 Weight 92.5 kg 89.5 kg Intake: Oral 1120 530 Output: Urine 250 385 Other: Urine Appearance Clear Clear Urine Color Dark Ina Dark Ina Stool Size Large Smear Smear Stool Characteristics Liquid Liquid Liquid Voiding Method Urinal Urinal Urinal # Voids 2 3 # Bowel Movements 2 Vital Signs: Last Vital Signs Temp 36.9 C 10/30/16 06:57 Pulse 68 10/30/16 06:57 Resp 12 10/30/16 09:00 BP 133/75 10/30/16 06:57 Pulse Ox 90 10/30/16 09:00 Oxygen Delivery Method Room Air - Constitutional General appearance: Present: average body habitus. Absent: acute distress - Head Head exam: Present: atraumatic, normal inspection - Eye Eye exam: Absent: conjunctival injection, EOMI - ENT ENT exam: Present: mucous membranes moist, normal oropharynx, other (minimal dentition) - Neck Neck exam: Present: normal inspection - Respiratory Respiratory exam: Present: clear. Absent: accessory muscle use - Cardiovascular Cardiovascular exam: Present: RRR - GI/Abdominal GI/Abdominal exam: Present: normal bowel sounds, soft. Absent: tenderness - Extremities Exam Extremities exam: Present: edema (trace edema left, 1-2 + on right). Absent: tenderness - Skin Skin exam: Present: other (chronic venous stasis changes) - Allied Health Notes Allied health notes reviewed: case management, nursing, OT, PT - Lab Labs: Laboratory Last Values WBC 8.8 X 10^3uL (3.9-10.7) 10/30/16 05:40 RBC 3.01 X 10^6uL (4.20-6.10) L 10/30/16 05:40 Hgb 9.4 g/dL (14.0-18.0) L 10/30/16 05:40 Hct 29.0 % (42.0-54.0) L 10/30/16 05:40 MCV 96.0 fL (80.0-100.0) D 10/30/16 05:40 MCH 31.4 pg (29.0-35.0) 10/30/16 05:40 MCHC 32.6 g/dL (32.0-36.0) 10/30/16 05:40 RDW Not Reportable 10/30/16 05:40 Plt Count 330 X 10^3uL (130-440) 10/30/16 05:40 MPV Not Reportable 10/30/16 05:40 Total Counted 100 10/30/16 05:40 Neutrophils % Cancelled 10/30/16 05:40 Neutrophils % (Manual) 67 % (54.0-75.0) 10/30/16 05:40 Lymphocytes % Cancelled 10/30/16 05:40 Lymphocytes % (Manual) 18 % (20.0-40.0) L 10/30/16 05:40 Monocytes % (Manual) 8 % (2.0-10.0) 10/30/16 05:40 Eosinophils % Cancelled 10/30/16 05:40 Eosinophils % (Manual) 7 % (0.0-6.0) H 10/30/16 05:40 Basophils % Cancelled 10/30/16 05:40 Neutrophils # Cancelled 10/30/16 05:40 Lymphocytes # Cancelled 10/30/16 05:40 Monocytes Cancelled 10/30/16 05:40 Monocytes # Cancelled 10/30/16 05:40 Eosinophils # Cancelled 10/30/16 05:40 Basophils # Cancelled 10/30/16 05:40 Platelet Estimate Adequate 10/30/16 05:40 Anisocytosis 10-19% of cells 10/30/16 05:40 Sodium 140 mmol/L (137-145) 10/30/16 05:40 Potassium 3.3 mmol/L (3.5-5.1) L 10/30/16 05:40 Chloride 104 mmol/L (98-107) 10/30/16 05:40 Carbon Dioxide 29 mmol/L (22-30) 10/30/16 05:40 BUN 10 mg/dL (9-20) 10/30/16 05:40 Creatinine 0.5 mg/dL (0.7-1.3) L 10/30/16 05:40 GFR Calculation > 60 mL/min 10/30/16 05:40 Glucose 99 mg/dL (70-100) 10/30/16 05:40 Calcium 7.5 mg/dL (8.4-10.2) L 10/30/16 05:40 Total Bilirubin 2.9 mg/dL (0.2-1.3) H 10/30/16 05:40 Direct Bilirubin 0.7 mg/dL (0.0-0.4) H 10/30/16 05:40 AST 49 U/L (17-59) 10/30/16 05:40 ALT 69 U/L (21-72) 10/30/16 05:40 Alkaline Phosphatase 54 U/L (38-126) 10/30/16 05:40 Total Protein 5.8 g/dL (6.3-8.2) L 10/30/16 05:40 Albumin 2.6 g/dL (3.5-5.0) L 10/30/16 05:40 Urine Color Ina A 10/29/16 13:00 Urine Appearance Clear 10/29/16 13:00 Urine pH 5.5 (5-7) 10/29/16 13:00 Ur Specific [place] 1.020 (0.001-1.035) 10/29/16 13:00 Urine Protein 100mg/dl (2+) (NEG - TRACE) A 10/29/16 13:00 Urine Ketones 5mg/dl (NEGATIVE) A 10/29/16 13:00 Urine Blood Negative (NEGATIVE) 10/29/16 13:00 Urine Nitrate Negative (NEGATIVE) 10/29/16 13:00 Urine Bilirubin 0.5 mg/100ml (1+) (NEGATIVE) A 10/29/16 13:00 Urine Urobilinogen 8mg/dl (NEG-1mg/dL) A 10/29/16 13:00 Ur Leukocyte Esterase Negative (NEGATIVE) 10/29/16 13:00 Urine RBC 0-5/hpf (0-5/hpf) 10/29/16 13:00 Urine WBC 0-4/hpf (0-4/hpf) 10/29/16 13:00 Ur Squamous Epith Cells None seen (<= 15/hpf) 10/29/16 13:00 Calcium Oxalate Crystal Many (Occasional) 10/29/16 13:00 Amorphous Sediment None seen (Up to 25%) 10/29/16 13:00 Urine Bacteria <10 organisms/hpf (<10/hpf) 10/29/16 13:00 Urine Mucus None seen (Up to 25%) 10/29/16 13:00 Urine Glucose Normal (NEGATIVE) 10/29/16 13:00 Quality Questions - VTE Prophylaxis Assessment VTE Present on Admission?: No Patient at risk for venous thromboembolism?: Yes VTE Risk Level: High Risk Pharmaceutical VTE prophylaxis contraindication reason: N/A- VTE prophylaxsis ordered Mechanical VTE prophylaxis contraindication reason: N/A- VTE prophylaxsis ordered (1) Supracondylar fracture of right femur Qualifiers: Encounter type: initial encounter Fracture type: closed Qualified Code(s): S72.451A - Displaced supracondylar fracture without intracondylar extension of lower end of right femur, initial encounter for closed fracture (3) Anemia Qualifiers: Anemia type: iron deficiency Iron deficiency anemia type: unspecified iron deficiency Qualified Code(s): D50.9 - Iron deficiency anemia, unspecified (6) Hypertension Qualifiers: Hypertension type: essential hypertension Qualified Code(s): I10 - Essential (primary) hypertension
[2016-10-30] MEDS: ACETAMINOPHEN 500 MG TABLET PO SCH ×2 (15:04→20:14)
[2016-10-30] MEDS ORDERED: ACETAMINOPHEN 500 MG TABLET PO ONE (15:14)
[2016-10-31] MEDS: BISACODYL 10 MG SUPP.RECT PR SCH ×2 (09:48→20:26)
[2016-10-31] MEDS: FOLIC ACID 1 MG TABLET PO SCH (09:48)
[2016-10-31] MEDS: metoprolol SUCC ER 25 MG TABLET PO SCH (09:49)
[2016-10-31] MEDS: MULTIVITAMINS THERAPEUTIC 1 TABLET PO SCH (09:49)
[2016-10-31] MEDS: ENOXAPARIN SODIUM 40 MG/0.4 ML SYR SUBCUT SCH (09:49)
[2016-10-31] MEDS: ACETAMINOPHEN 500 MG TABLET PO SCH ×2 (09:50→20:28)
[2016-10-31] MEDS: ASCORBIC ACID 500 MG TABLET PO SCH ×2 (09:51→20:29)
[2016-10-31] MEDS: POLYETHYLENE GLYCOL 3350 17 GM POWD.PACK PO SCH ×2 (09:52→20:27)
[2016-10-31] MEDS: ARGININE 500 MG PO SCH (10:13)
[2016-11-01 06:51] LABS: A/G RATIO 0.8; ALBUMIN 2.8 g/dL (3.5-5.0); ALKALINE PHOSPHATASE 58 U/L (38-126); ALT 53 U/L (21-72); AST 41 U/L (17-59); BILIRUBIN, TOTAL 2.7 mg/dL (0.2-1.3); BLOOD UREA NITROGEN 11 mg/dL (9-20); CALCIUM 7.7 mg/dL (8.4-10.2); CHLORIDE 104 mmol/L (98-107); EST GLOMERULAR FILTRATION RATE > 60 mL/min; GLUCOSE 88 mg/dL (70-100); POTASSIUM 3.5 mmol/L (3.5-5.1); SODIUM 139 mmol/L (137-145); TOTAL PROTEIN 6.3 g/dL (6.3-8.2)
[2016-11-01 06:55] LABS: BASOPHILS 0.1 % (0.0-2.0); EOSINOPHILS 7.2 % (0.0-6.0); EOSINOPHILS# 0.5 X 10^3uL (0.0-0.4); HEMATOCRIT 30.6 % (42.0-54.0); LYMPHOCYTES 13.8 % (20.0-40.0); MEAN CELL VOLUME 89.6 fL (80.0-100.0); MEAN CORPUS. HGB CONCENTRATION 32.8 g/dL (32.0-36.0); MEAN CORPUSCULAR HEMOGLOBIN 29.4 pg (29.0-35.0); MONOCYTES# 0.5 X 10^3uL (0.2-1.0); NEUTROPHILS 71.9 % (54.0-75.0); NEUTROPHILS# 5.1 X 10^3uL (2.6-6.7); PLATELET COUNT 486 X 10^3uL (130-440); RED BLOOD COUNT 3.41 X 10^6uL (4.20-6.10); RED CELL DISTRIBUTION WIDTH 13.8 % (11.5-14.5); WHITE BLOOD COUNT 7.1 X 10^3uL (3.9-10.7)
--- NOTE | 2016-11-01 08:21 | PROGRESS NOTE: IM APSO ---
Assessment and Plan - Date of Encounter Date of Encounter: 11/01/16 (1) Anemia Status: Acute Assessment and plan: received 4units PRBC's, Hgb now 10 and vitals otherwise stable. Recheck Hgb in few days, no AP, N/V/melena. Current Visit: No (2) Supracondylar fracture of right femur Status: Acute Assessment and plan: s/p ORIF Current Visit: No (3) History of CVA (cerebrovascular accident) Status: Chronic Assessment and plan: right hemiparesis, mobility affected with weakness/deconditioning/RA and hemiparesis but improving Current Visit: No (4) Hypertension Status: Chronic Assessment and plan: controlled on current iteration medications Current Visit: No (5) Rheumatoid arthritis Status: Chronic Assessment and plan: no active synovitis Current Visit: No (6) Right hemiparesis Status: Chronic Current Visit: No - Time Spent With Patient Total time spent with greater than 50% in coordination of care (as documented) at patient's floor/unit and/or counseling patient: 25 - 35 minutes Estimated anticipated discharge: weeks IM: PN Subjective General: pain (hip), no fever, no chills HEENT: no headache, no sore throat Cardiovascular: no chest pain, no dizziness Respiratory: no SOB Gastrointestinal: no abdominal pain, no vomiting, no diarrhea (continues to have slightly loose stools) Genitourinary: no flank pain Musculoskeletal: pain, swelling, weakness (baseline right sided, but also left side weakness from deconditioning, did ambulate some in halls, needs help to eat ) Neurological: limb weakness IM: PN Objective Exam - I&O/Vital Signs I&O: Intake & Output 10/31/16 11/01/16 11/01/16 21:59 05:59 13:59 Intake Total 725 325 Output Total 375 475 Balance 350 -150 Weight 89.5 kg 87 kg Intake: Oral 725 325 Output: Urine 375 475 Other: Urine Appearance Clear Clear Urine Color Light Ina Light Ina Stool Size Small Stool Characteristics Formed Mucoid Brown Voiding Method Urinal Urinal # Voids 2 2 # Bowel Movements 2 Vital Signs: Last Vital Signs Temp 37.1 C 11/01/16 06:22 Pulse 72 11/01/16 06:22 Resp 20 11/01/16 06:22 BP 121/74 11/01/16 06:22 Pulse Ox 94 11/01/16 06:22 Oxygen Delivery Method Room Air - Constitutional General appearance: Present: average body habitus. Absent: acute distress - Head Head exam: Present: atraumatic, normal inspection - Eye Eye exam: Absent: conjunctival injection, EOMI - ENT ENT exam: Present: mucous membranes moist, normal oropharynx, other ( periodontitis) - Neck Neck exam: Present: normal inspection - Respiratory Respiratory exam: Present: clear. Absent: accessory muscle use - Cardiovascular Cardiovascular exam: Present: RRR - GI/Abdominal GI/Abdominal exam: Present: normal bowel sounds, soft, tenderness (LLQ but he feels msucles from sit ups/mobility) - Extremities Exam Extremities exam: Present: edema (trace edema left, 1-2 + on right). Absent: tenderness - Skin Skin exam: Present: other (chronic venous stasis changes) - Allied Health Notes Allied health notes reviewed: nursing, PT - Lab Labs: Laboratory Last Values WBC 7.1 X 10^3uL (3.9-10.7) 11/01/16 06:00 RBC 3.41 X 10^6uL (4.20-6.10) L 11/01/16 06:00 Hgb 10.0 g/dL (14.0-18.0) L 11/01/16 06:00 Hct 30.6 % (42.0-54.0) L 11/01/16 06:00 MCV 89.6 fL (80.0-100.0) D 11/01/16 06:00 MCH 29.4 pg (29.0-35.0) 11/01/16 06:00 MCHC 32.8 g/dL (32.0-36.0) 11/01/16 06:00 RDW 13.8 % (11.5-14.5) 11/01/16 06:00 Plt Count 486 X 10^3uL (130-440) H 11/01/16 06:00 MPV 7.0 fL (7.4-10.4) L 11/01/16 06:00 Total Counted 100 10/30/16 05:40 Neutrophils % 71.9 % (54.0-75.0) 11/01/16 06:00 Neutrophils % (Manual) 67 % (54.0-75.0) 10/30/16 05:40 Lymphocytes % 13.8 % (20.0-40.0) L 11/01/16 06:00 Lymphocytes % (Manual) 18 % (20.0-40.0) L 10/30/16 05:40 Monocytes % (Manual) 8 % (2.0-10.0) 10/30/16 05:40 Eosinophils % 7.2 % (0.0-6.0) H 11/01/16 06:00 Eosinophils % (Manual) 7 % (0.0-6.0) H 10/30/16 05:40 Basophils % 0.1 % (0.0-2.0) 11/01/16 06:00 Neutrophils # 5.1 X 10^3uL (2.6-6.7) 11/01/16 06:00 Lymphocytes # 1.0 X 10^3uL (0.8-3.8) 11/01/16 06:00 Monocytes 7.0 % (2.0-10.0) 11/01/16 06:00 Monocytes # 0.5 X 10^3uL (0.2-1.0) 11/01/16 06:00 Eosinophils # 0.5 X 10^3uL (0.0-0.4) H 11/01/16 06:00 Basophils # 0.0 X 10^3uL (0.0-0.1) 11/01/16 06:00 Platelet Estimate Adequate 10/30/16 05:40 Anisocytosis 10-19% of cells 10/30/16 05:40 Sodium 139 mmol/L (137-145) 11/01/16 06:00 Potassium 3.5 mmol/L (3.5-5.1) 11/01/16 06:00 Chloride 104 mmol/L (98-107) 11/01/16 06:00 Carbon Dioxide 26 mmol/L (22-30) 11/01/16 06:00 BUN 11 mg/dL (9-20) 11/01/16 06:00 Creatinine 0.5 mg/dL (0.7-1.3) L 11/01/16 06:00 GFR Calculation > 60 mL/min 11/01/16 06:00 Glucose 88 mg/dL (70-100) 11/01/16 06:00 Calcium 7.7 mg/dL (8.4-10.2) L 11/01/16 06:00 Total Bilirubin 2.7 mg/dL (0.2-1.3) H 11/01/16 06:00 Direct Bilirubin 0.7 mg/dL (0.0-0.4) H 10/30/16 05:40 AST 41 U/L (17-59) 11/01/16 06:00 ALT 53 U/L (21-72) 11/01/16 06:00 Alkaline Phosphatase 58 U/L (38-126) 11/01/16 06:00 Total Protein 6.3 g/dL (6.3-8.2) 11/01/16 06:00 Albumin 2.8 g/dL (3.5-5.0) L 11/01/16 06:00 Albumin/Globulin Ratio 0.8 11/01/16 06:00 Urine Color Ina A 10/29/16 13:00 Urine Appearance Clear 10/29/16 13:00 Urine pH 5.5 (5-7) 10/29/16 13:00 Ur Specific [place] 1.020 (0.001-1.035) 10/29/16 13:00 Urine Protein 100mg/dl (2+) (NEG - TRACE) A 10/29/16 13:00 Urine Ketones 5mg/dl (NEGATIVE) A 10/29/16 13:00 Urine Blood Negative (NEGATIVE) 10/29/16 13:00 Urine Nitrate Negative (NEGATIVE) 10/29/16 13:00 Urine Bilirubin 0.5 mg/100ml (1+) (NEGATIVE) A 10/29/16 13:00 Urine Urobilinogen 8mg/dl (NEG-1mg/dL) A 10/29/16 13:00 Ur Leukocyte Esterase Negative (NEGATIVE) 10/29/16 13:00 Urine RBC 0-5/hpf (0-5/hpf) 10/29/16 13:00 Urine WBC 0-4/hpf (0-4/hpf) 10/29/16 13:00 Ur Squamous Epith Cells None seen (<= 15/hpf) 10/29/16 13:00 Calcium Oxalate Crystal Many (Occasional) 10/29/16 13:00 Amorphous Sediment None seen (Up to 25%) 10/29/16 13:00 Urine Bacteria <10 organisms/hpf (<10/hpf) 10/29/16 13:00 Urine Mucus None seen (Up to 25%) 10/29/16 13:00 Urine Glucose Normal (NEGATIVE) 10/29/16 13:00 Quality Questions - VTE Prophylaxis Assessment VTE Present on Admission?: No Patient at risk for venous thromboembolism?: Yes VTE Risk Level: Moderate Risk Pharmaceutical VTE prophylaxis contraindication reason: N/A- VTE prophylaxsis ordered Mechanical VTE prophylaxis contraindication reason: N/A- VTE prophylaxsis ordered (1) Anemia Qualifiers: Anemia type: iron deficiency Iron deficiency anemia type: unspecified iron deficiency Qualified Code(s): D50.9 - Iron deficiency anemia, unspecified (2) Supracondylar fracture of right femur Qualifiers: Encounter type: initial encounter Fracture type: closed Qualified Code(s): S72.451A - Displaced supracondylar fracture without intracondylar extension of lower end of right femur, initial encounter for closed fracture (4) Hypertension Qualifiers: Hypertension type: essential hypertension Qualified Code(s): I10 - Essential (primary) hypertension
[2016-11-01] MEDS: ACETAMINOPHEN 500 MG TABLET PO SCH ×2 (08:37→21:05)
[2016-11-01] MEDS: ASCORBIC ACID 500 MG TABLET PO SCH ×2 (08:37→21:04)
[2016-11-01] MEDS: metoprolol SUCC ER 25 MG TABLET PO SCH (08:37)
[2016-11-01] MEDS: FOLIC ACID 1 MG TABLET PO SCH (08:38)
[2016-11-01] MEDS: ENOXAPARIN SODIUM 40 MG/0.4 ML SYR SUBCUT SCH (08:38)
[2016-11-01] MEDS: MULTIVITAMINS THERAPEUTIC 1 TABLET PO SCH (08:38)
[2016-11-01] MEDS: ARGININE 500 MG PO SCH (08:39)
[2016-11-01] MEDS: BISACODYL 10 MG SUPP.RECT PR SCH ×2 (08:39→20:50)
[2016-11-01] MEDS: POLYETHYLENE GLYCOL 3350 17 GM POWD.PACK PO SCH ×2 (08:40→20:51)
[2016-11-01] MEDS: FAMOTIDINE 20 MG TABLET PO SCH ×2 (09:14→21:04)
[2016-11-02] MEDS: ACETAMINOPHEN 500 MG TABLET PO SCH ×2 (08:35→21:31)
[2016-11-02] MEDS: ENOXAPARIN SODIUM 40 MG/0.4 ML SYR SUBCUT SCH (08:35)
[2016-11-02] MEDS: ASCORBIC ACID 500 MG TABLET PO SCH ×2 (08:35→21:30)
[2016-11-02] MEDS: metoprolol SUCC ER 25 MG TABLET PO SCH (08:36)
[2016-11-02] MEDS: BISACODYL 10 MG SUPP.RECT PR SCH ×2 (08:36→21:28)
[2016-11-02] MEDS: POLYETHYLENE GLYCOL 3350 17 GM POWD.PACK PO SCH ×2 (08:36→21:28)
[2016-11-02] MEDS: MULTIVITAMINS THERAPEUTIC 1 TABLET PO SCH (08:36)
[2016-11-02] MEDS: FAMOTIDINE 20 MG TABLET PO SCH ×2 (08:36→21:30)
[2016-11-02] MEDS: FOLIC ACID 1 MG TABLET PO SCH (08:36)
[2016-11-02] MEDS: ARGININE 500 MG PO SCH (08:37)
--- NOTE | 2016-11-02 10:51 | PROGRESS NOTE: IM APSO ---
Assessment and Plan - Date of Encounter Date of Encounter: 11/02/16 (1) Anemia Status: Acute Assessment and plan: received 4units PRBC's, Hgb now 10 and vitals otherwise stable. Recheck Hgb in few days, no AP, N/V/melena (yesterday state muscular pain, today states had epigastric pain but last few days but this is improved now), stool hemoccults negative. Current Visit: No (2) Supracondylar fracture of right femur Status: Acute Assessment and plan: s/p ORIF, edema noted and bruising but wound well opposed and no warmth Current Visit: No (3) History of CVA (cerebrovascular accident) Status: Chronic Assessment and plan: right hemiparesis, mobility affected with weakness/deconditioning/RA and hemiparesis but improving Current Visit: No (4) Hypertension Status: Chronic Assessment and plan: controlled on current iteration medications Current Visit: No (5) Rheumatoid arthritis Status: Chronic Assessment and plan: no active synovitis, chronic stigmata noted hands/wrists bilaterally Current Visit: No (6) Right hemiparesis Status: Chronic Current Visit: No - Time Spent With Patient Total time spent with greater than 50% in coordination of care (as documented) at patient's floor/unit and/or counseling patient: 16-24 minutes Estimated anticipated discharge: weeks IM: PN Subjective General: pain (hip), no fever, no chills HEENT: no headache, no sore throat Cardiovascular: no chest pain, no dizziness Respiratory: no SOB Gastrointestinal: no abdominal pain, no vomiting, no diarrhea (continues to have slightly loose stools) Genitourinary: no flank pain Musculoskeletal: pain, swelling, weakness (baseline right sided, but also left side weakness from deconditioning, did ambulate some in halls, needs help to eat ) Neurological: limb weakness IM: PN Objective Exam - I&O/Vital Signs I&O: Intake & Output 11/01/16 11/02/16 11/02/16 21:59 05:59 13:59 Intake Total 1020 200 237 Output Total 600 676 1 Balance 420 -476 236 Weight 86.5 kg Intake: Oral 1020 200 Oral Supplement 237 Output: Urine 600 675 Stool 1 1 Other: Urine Appearance Clear Clear Urine Color Light Ina Straw Straw Light Ina Light Ina Stool Size Moderate Smear Smear Stool Characteristics Mucoid Mucoid Mucoid Brown Voiding Method Urinal Urinal Urinal # Voids 3 4 # Bowel Movements 1 Vital Signs: Last Vital Signs Temp 37.3 C 11/02/16 05:49 Pulse 64 11/02/16 05:49 Resp 20 11/02/16 08:53 BP 141/72 11/02/16 05:49 Pulse Ox 94 11/02/16 08:53 Oxygen Delivery Method Room Air - Constitutional General appearance: Present: average body habitus (Looks good, interactive, seated by window and "enjoying looking out at [place]".). Absent: acute distress - Head Head exam: Present: atraumatic, normal inspection - Eye Eye exam: Absent: conjunctival injection, EOMI - ENT ENT exam: Present: mucous membranes moist, normal oropharynx, other ( periodontitis) - Neck Neck exam: Present: normal inspection - Respiratory Respiratory exam: Present: clear. Absent: accessory muscle use - Cardiovascular Cardiovascular exam: Present: RRR - GI/Abdominal GI/Abdominal exam: Present: normal bowel sounds, soft, tenderness (LLQ but he feels msucles from sit ups/mobility) - Extremities Exam Extremities exam: Present: edema (trace edema left, 1-2 + on right). Absent: tenderness - Skin Skin exam: Present: other (chronic venous stasis changes) - Allied Health Notes Allied health notes reviewed: nursing, PT - Lab Labs: Laboratory Last Values WBC 7.1 X 10^3uL (3.9-10.7) 11/01/16 06:00 RBC 3.41 X 10^6uL (4.20-6.10) L 11/01/16 06:00 Hgb 10.0 g/dL (14.0-18.0) L 11/01/16 06:00 Hct 30.6 % (42.0-54.0) L 11/01/16 06:00 MCV 89.6 fL (80.0-100.0) D 11/01/16 06:00 MCH 29.4 pg (29.0-35.0) 11/01/16 06:00 MCHC 32.8 g/dL (32.0-36.0) 11/01/16 06:00 RDW 13.8 % (11.5-14.5) 11/01/16 06:00 Plt Count 486 X 10^3uL (130-440) H 11/01/16 06:00 MPV 7.0 fL (7.4-10.4) L 11/01/16 06:00 Total Counted 100 10/30/16 05:40 Neutrophils % 71.9 % (54.0-75.0) 11/01/16 06:00 Neutrophils % (Manual) 67 % (54.0-75.0) 10/30/16 05:40 Lymphocytes % 13.8 % (20.0-40.0) L 11/01/16 06:00 Lymphocytes % (Manual) 18 % (20.0-40.0) L 10/30/16 05:40 Monocytes % (Manual) 8 % (2.0-10.0) 10/30/16 05:40 Eosinophils % 7.2 % (0.0-6.0) H 11/01/16 06:00 Eosinophils % (Manual) 7 % (0.0-6.0) H 10/30/16 05:40 Basophils % 0.1 % (0.0-2.0) 11/01/16 06:00 Neutrophils # 5.1 X 10^3uL (2.6-6.7) 11/01/16 06:00 Lymphocytes # 1.0 X 10^3uL (0.8-3.8) 11/01/16 06:00 Monocytes 7.0 % (2.0-10.0) 11/01/16 06:00 Monocytes # 0.5 X 10^3uL (0.2-1.0) 11/01/16 06:00 Eosinophils # 0.5 X 10^3uL (0.0-0.4) H 11/01/16 06:00 Basophils # 0.0 X 10^3uL (0.0-0.1) 11/01/16 06:00 Platelet Estimate Adequate 10/30/16 05:40 Anisocytosis 10-19% of cells 10/30/16 05:40 Sodium 139 mmol/L (137-145) 11/01/16 06:00 Potassium 3.5 mmol/L (3.5-5.1) 11/01/16 06:00 Chloride 104 mmol/L (98-107) 11/01/16 06:00 Carbon Dioxide 26 mmol/L (22-30) 11/01/16 06:00 BUN 11 mg/dL (9-20) 11/01/16 06:00 Creatinine 0.5 mg/dL (0.7-1.3) L 11/01/16 06:00 GFR Calculation > 60 mL/min 11/01/16 06:00 Glucose 88 mg/dL (70-100) 11/01/16 06:00 Calcium 7.7 mg/dL (8.4-10.2) L 11/01/16 06:00 Total Bilirubin 2.7 mg/dL (0.2-1.3) H 11/01/16 06:00 Direct Bilirubin 0.7 mg/dL (0.0-0.4) H 10/30/16 05:40 AST 41 U/L (17-59) 11/01/16 06:00 ALT 53 U/L (21-72) 11/01/16 06:00 Alkaline Phosphatase 58 U/L (38-126) 11/01/16 06:00 Total Protein 6.3 g/dL (6.3-8.2) 11/01/16 06:00 Albumin 2.8 g/dL (3.5-5.0) L 11/01/16 06:00 Albumin/Globulin Ratio 0.8 11/01/16 06:00 Urine Color Ina A 10/29/16 13:00 Urine Appearance Clear 10/29/16 13:00 Urine pH 5.5 (5-7) 10/29/16 13:00 Ur Specific [place] 1.020 (0.001-1.035) 10/29/16 13:00 Urine Protein 100mg/dl (2+) (NEG - TRACE) A 10/29/16 13:00 Urine Ketones 5mg/dl (NEGATIVE) A 10/29/16 13:00 Urine Blood Negative (NEGATIVE) 10/29/16 13:00 Urine Nitrate Negative (NEGATIVE) 10/29/16 13:00 Urine Bilirubin 0.5 mg/100ml (1+) (NEGATIVE) A 10/29/16 13:00 Urine Urobilinogen 8mg/dl (NEG-1mg/dL) A 10/29/16 13:00 Ur Leukocyte Esterase Negative (NEGATIVE) 10/29/16 13:00 Urine RBC 0-5/hpf (0-5/hpf) 10/29/16 13:00 Urine WBC 0-4/hpf (0-4/hpf) 10/29/16 13:00 Ur Squamous Epith Cells None seen (<= 15/hpf) 10/29/16 13:00 Calcium Oxalate Crystal Many (Occasional) 10/29/16 13:00 Amorphous Sediment None seen (Up to 25%) 10/29/16 13:00 Urine Bacteria <10 organisms/hpf (<10/hpf) 10/29/16 13:00 Urine Mucus None seen (Up to 25%) 10/29/16 13:00 Urine Glucose Normal (NEGATIVE) 10/29/16 13:00 (1) Anemia Qualifiers: Anemia type: iron deficiency Iron deficiency anemia type: unspecified iron deficiency Qualified Code(s): D50.9 - Iron deficiency anemia, unspecified (2) Supracondylar fracture of right femur Qualifiers: Encounter type: subsequent encounter Fracture type: closed (4) Hypertension Qualifiers: Hypertension type: essential hypertension Qualified Code(s): I10 - Essential (primary) hypertension
[2016-11-03] MEDS: ENOXAPARIN SODIUM 40 MG/0.4 ML SYR SUBCUT SCH (09:20)
[2016-11-03] MEDS: MULTIVITAMINS THERAPEUTIC 1 TABLET PO SCH (09:21)
[2016-11-03] MEDS: POLYETHYLENE GLYCOL 3350 17 GM POWD.PACK PO SCH ×2 (09:21→20:20)
[2016-11-03] MEDS: metoprolol SUCC ER 25 MG TABLET PO SCH (09:21)
[2016-11-03] MEDS: ACETAMINOPHEN 500 MG TABLET PO SCH ×2 (09:21→20:19)
[2016-11-03] MEDS: ASCORBIC ACID 500 MG TABLET PO SCH ×2 (09:21→20:20)
[2016-11-03] MEDS: FOLIC ACID 1 MG TABLET PO SCH (09:21)
[2016-11-03] MEDS: FAMOTIDINE 20 MG TABLET PO SCH ×2 (09:21→20:19)
[2016-11-03] MEDS: BISACODYL 10 MG SUPP.RECT PR SCH ×2 (09:21→20:20)
[2016-11-03] MEDS: ARGININE 500 MG PO SCH (13:57)
[2016-11-04 06:00] LABS: HEMATOCRIT 28.6 % (42.0-54.0); HEMOGLOBIN 9.4 g/dL (14.0-18.0)
--- NOTE | 2016-11-04 08:41 | PROGRESS NOTE: IM SOAP ---
IM: PN Subjective General: pain (He had some increased RLE pain over the weekend. Improved this morning.), no fatigue (His enrgy level continues to improve.), no confusion, no good appetite (But this is his baseline.), no fever, no chills HEENT: no headache Cardiovascular: no chest pain, no dizziness Respiratory: no cough, no SOB Gastrointestinal: bloating, diarrhea (He continues to have loose stools), no abdominal pain, no nausea, no vomiting Genitourinary: other (No trouble with urination after Donaldson catheter removed.), no flank pain Musculoskeletal: pain, swelling, weakness (Baseline right sided, but also left side weakness from deconditioning, did ambulate some in halls, needs help to eat. ) Integumentary: other (Chronic BLE venous insufficiency changes. ) Neurological: limb weakness IM: PN Objective Exam - I&O/Vital Signs I&O: Intake & Output 11/03/16 11/04/16 11/04/16 21:59 05:59 13:59 Intake Total 380 350 Output Total 450 600 Balance -70 -250 Intake: Oral 380 350 Output: Urine 450 600 Other: Urine Appearance Clear Clear Urine Color Light Ina Dark Ina Stool Size Moderate Stool Characteristics Liquid Voiding Method Urinal Urinal # Voids 2 3 # Bowel Movements 2 Vital Signs: Last Vital Signs Temp 37.0 C 11/04/16 07:00 Pulse 68 11/04/16 07:00 Resp 26 H 11/04/16 07:00 BP 133/67 11/04/16 07:00 Pulse Ox 91 11/04/16 07:00 Oxygen Delivery Method Room Air - Constitutional General appearance: Present: average body habitus (Looks good, interactive, seated by window and "enjoying looking out at [place]".), cooperative, other ( Sitting up in his wheelchair in NAD.). Absent: acute distress - Head Head exam: Present: atraumatic, normal inspection - Eye Eye exam: Present: PERRL. Absent: conjunctival injection, EOMI - ENT ENT exam: Present: mucous membranes moist, normal oropharynx, other ( periodontitis) - Neck Neck exam: Present: normal inspection - Respiratory Respiratory exam: Present: clear, other (Improved aeration throughout.). Absent : accessory muscle use - Cardiovascular Cardiovascular exam: Present: RRR. Absent: gallop, rubs, systolic murmur - GI/Abdominal GI/Abdominal exam: Present: normal bowel sounds, soft. Absent: distended, tenderness - Extremities Exam Extremities exam: Present: edema (trace edema left, 1-2 + on right), other ( Pigmented; atrophic; loss of hair c/w chronic venous stasis changes.). Absent: tenderness - Neurological Exam Neurological exam: Present: alert, oriented X3 - Psychiatric Psychiatric exam: Present: normal affect, normal mood - Skin Skin exam: Present: other (chronic BLE venous stasis changes) - Allied Health Notes Allied health notes reviewed: case management, nursing, PT, social work (I d/w Edyta Mireles RN regarding D/C planning) - Lab Labs: Laboratory Last Values WBC 7.1 X 10^3uL (3.9-10.7) 11/01/16 06:00 RBC 3.41 X 10^6uL (4.20-6.10) L 11/01/16 06:00 Hgb 9.4 g/dL (14.0-18.0) L 11/04/16 05:45 Hct 28.6 % (42.0-54.0) L 11/04/16 05:45 MCV 89.6 fL (80.0-100.0) D 11/01/16 06:00 MCH 29.4 pg (29.0-35.0) 11/01/16 06:00 MCHC 32.8 g/dL (32.0-36.0) 11/01/16 06:00 RDW 13.8 % (11.5-14.5) 11/01/16 06:00 Plt Count 486 X 10^3uL (130-440) H 11/01/16 06:00 MPV 7.0 fL (7.4-10.4) L 11/01/16 06:00 Total Counted 100 10/30/16 05:40 Neutrophils % 71.9 % (54.0-75.0) 11/01/16 06:00 Neutrophils % (Manual) 67 % (54.0-75.0) 10/30/16 05:40 Lymphocytes % 13.8 % (20.0-40.0) L 11/01/16 06:00 Lymphocytes % (Manual) 18 % (20.0-40.0) L 10/30/16 05:40 Monocytes % (Manual) 8 % (2.0-10.0) 10/30/16 05:40 Eosinophils % 7.2 % (0.0-6.0) H 11/01/16 06:00 Eosinophils % (Manual) 7 % (0.0-6.0) H 10/30/16 05:40 Basophils % 0.1 % (0.0-2.0) 11/01/16 06:00 Neutrophils # 5.1 X 10^3uL (2.6-6.7) 11/01/16 06:00 Lymphocytes # 1.0 X 10^3uL (0.8-3.8) 11/01/16 06:00 Monocytes 7.0 % (2.0-10.0) 11/01/16 06:00 Monocytes # 0.5 X 10^3uL (0.2-1.0) 11/01/16 06:00 Eosinophils # 0.5 X 10^3uL (0.0-0.4) H 11/01/16 06:00 Basophils # 0.0 X 10^3uL (0.0-0.1) 11/01/16 06:00 Platelet Estimate Adequate 10/30/16 05:40 Anisocytosis 10-19% of cells 10/30/16 05:40 Sodium 139 mmol/L (137-145) 11/01/16 06:00 Potassium 3.5 mmol/L (3.5-5.1) 11/01/16 06:00 Chloride 104 mmol/L (98-107) 11/01/16 06:00 Carbon Dioxide 26 mmol/L (22-30) 11/01/16 06:00 BUN 11 mg/dL (9-20) 11/01/16 06:00 Creatinine 0.5 mg/dL (0.7-1.3) L 11/01/16 06:00 GFR Calculation > 60 mL/min 11/01/16 06:00 Glucose 88 mg/dL (70-100) 11/01/16 06:00 Calcium 7.7 mg/dL (8.4-10.2) L 11/01/16 06:00 Total Bilirubin 2.7 mg/dL (0.2-1.3) H 11/01/16 06:00 Direct Bilirubin 0.7 mg/dL (0.0-0.4) H 10/30/16 05:40 AST 41 U/L (17-59) 11/01/16 06:00 ALT 53 U/L (21-72) 11/01/16 06:00 Alkaline Phosphatase 58 U/L (38-126) 11/01/16 06:00 Total Protein 6.3 g/dL (6.3-8.2) 11/01/16 06:00 Albumin 2.8 g/dL (3.5-5.0) L 11/01/16 06:00 Albumin/Globulin Ratio 0.8 11/01/16 06:00 Urine Color Ina A 10/29/16 13:00 Urine Appearance Clear 10/29/16 13:00 Urine pH 5.5 (5-7) 10/29/16 13:00 Ur Specific [place] 1.020 (0.001-1.035) 10/29/16 13:00 Urine Protein 100mg/dl (2+) (NEG - TRACE) A 10/29/16 13:00 Urine Ketones 5mg/dl (NEGATIVE) A 10/29/16 13:00 Urine Blood Negative (NEGATIVE) 10/29/16 13:00 Urine Nitrate Negative (NEGATIVE) 10/29/16 13:00 Urine Bilirubin 0.5 mg/100ml (1+) (NEGATIVE) A 10/29/16 13:00 Urine Urobilinogen 8mg/dl (NEG-1mg/dL) A 10/29/16 13:00 Ur Leukocyte Esterase Negative (NEGATIVE) 10/29/16 13:00 Urine RBC 0-5/hpf (0-5/hpf) 10/29/16 13:00 Urine WBC 0-4/hpf (0-4/hpf) 10/29/16 13:00 Ur Squamous Epith Cells None seen (<= 15/hpf) 10/29/16 13:00 Calcium Oxalate Crystal Many (Occasional) 10/29/16 13:00 Amorphous Sediment None seen (Up to 25%) 10/29/16 13:00 Urine Bacteria <10 organisms/hpf (<10/hpf) 10/29/16 13:00 Urine Mucus None seen (Up to 25%) 10/29/16 13:00 Urine Glucose Normal (NEGATIVE) 10/29/16 13:00 Assessment and Plan - Date of Encounter Date of Encounter: 11/04/16 (1) Supracondylar fracture of right femur Status: Acute Assessment and plan: He is s/p ORIF R femur 10/23/16. Edgar to be removed and Lovenox stopped at 2 weeks post-op, November 06, 2016. He is overall doing well with slow progress. He has a care conference this Thursday. He will most likely be transferred to the [facility] on Thursday with the goal of returning home with caregivers. He is willing to have more caregivers at home. Current Visit: Yes (2) Anemia Status: Acute Assessment and plan: He is s/p a total of 4 units pRBCs. He had significant blood loss with fracture and ORIF. He also had evidence of mild anemia with most recent CBC in 2010. He most likely has long-standing iron deficiency from his poor nutrition at home. His iron studies here are consistent with iron deficiency. Stools have been Hemoccult negative. Appreciate Dr. Pugh's input today. Current Visit: Yes (3) Cholecystitis Status: Acute Assessment and plan: He developed abnormal LFTs after admission with CT abdomen showing multiple gallstones and CCD dilation. He is at high risk cholangitis. He does not desire further intervention with ERCP, stenting, or surgery. Asymptomatic. Watchful waiting for now. Current Visit: Yes (4) History of CVA (cerebrovascular accident) Status: Chronic Assessment and plan: Remote CVA with R-sided hemiparesis. He uses a wheelchair for mobility. He will require another week of swing bed here and then most likely transfer to [facility]. Begin BASA after 2 weeks of Lovenox dosing. Current Visit: Yes (5) Hypertension Status: Chronic Assessment and plan: He had weaned himself off of BP meds at home because BP too low. BP quite elevated upon admission after fracture. Now, BPs stable on low-dose BB for PVCs. Current Visit: Yes (6) PVC (premature ventricular contraction) Status: Acute Assessment and plan: He developed frequent PVCs which has now resolved. Continue low-dose metoprolol. Current Visit: Yes (7) Rheumatoid arthritis Status: Chronic Assessment and plan: Her has long-standing RA which has been remarkably stable. He manages his pain with just Tylenol. Current Visit: No - Time Spent With Patient Total time spent with greater than 50% in coordination of care (as documented) at patient's floor/unit and/or counseling patient: 16-24 minutes Estimated anticipated discharge: 5 days Quality Questions - VTE Prophylaxis Assessment VTE Present on Admission?: No Patient at risk for venous thromboembolism?: Yes VTE Risk Level: High Risk Pharmaceutical VTE prophylaxis contraindication reason: N/A- VTE prophylaxsis ordered Mechanical VTE prophylaxis contraindication reason: N/A- VTE prophylaxsis ordered (1) Supracondylar fracture of right femur Qualifiers: Encounter type: subsequent encounter Fracture type: closed (2) Anemia Qualifiers: Anemia type: iron deficiency Iron deficiency anemia type: unspecified iron deficiency Qualified Code(s): D50.9 - Iron deficiency anemia, unspecified (5) Hypertension Qualifiers: Hypertension type: essential hypertension Qualified Code(s): I10 - Essential (primary) hypertension
[2016-11-04 08:51] LABS: BLOOD UREA NITROGEN 9 mg/dL (9-20); CALCIUM 8.2 mg/dL (8.4-10.2); CHLORIDE 105 mmol/L (98-107); EST GLOMERULAR FILTRATION RATE > 60 mL/min; GLUCOSE 125 mg/dL (70-100); POTASSIUM 3.3 mmol/L (3.5-5.1); SODIUM 140 mmol/L (137-145)
[2016-11-04] MEDS: POLYETHYLENE GLYCOL 3350 17 GM POWD.PACK PO SCH ×2 (08:53→21:16)
[2016-11-04] MEDS: BISACODYL 10 MG SUPP.RECT PR SCH ×2 (08:53→21:16)
[2016-11-04] MEDS: ACETAMINOPHEN 500 MG TABLET PO SCH ×2 (08:54→21:14)
[2016-11-04] MEDS: FAMOTIDINE 20 MG TABLET PO SCH ×2 (08:54→21:15)
[2016-11-04] MEDS: ASCORBIC ACID 500 MG TABLET PO SCH ×2 (08:55→21:15)
[2016-11-04] MEDS: FOLIC ACID 1 MG TABLET PO SCH (08:55)
[2016-11-04] MEDS: ENOXAPARIN SODIUM 40 MG/0.4 ML SYR SUBCUT SCH (08:55)
[2016-11-04] MEDS: metoprolol SUCC ER 25 MG TABLET PO SCH (08:55)
[2016-11-04] MEDS: MULTIVITAMINS THERAPEUTIC 1 TABLET PO SCH (08:55)
[2016-11-04] MEDS: ARGININE 500 MG PO SCH (08:56)
--- NOTE | 2016-11-04 20:09 | CONSULTATION ---
DATE OF CONSULTATION: 11/04/16 STUDENT OFFICER: Jonny Pugh MD REASON FOR CONSULTATION: Anemia. CHIEF COMPLAINT: Fatigue, weakness. HISTORY OF PRESENT ILLNESS: The patient is a very pleasant 76-year-old gentleman with a remote history of stroke, as well as hypertension and rheumatoid arthritis. The patient lives alone here in [place]. Per the medical record, he had fallen while at home, and was subsequently diagnosed with a right femur fracture. He underwent internal fixation on 10/23/16. He did require a blood transfusion perioperatively. Per the chart he required 4 units of packed red blood cells. Postoperatively he has done fairly well, but he has seen in consultation by Dr. Capone to evaluate him for PVCs. He has been transferred to a swing bed and he reports today that he is pretty comfortable. The patient today reports that his pain is well controlled. He denies fever. He has had no shortness of breath or chest pain. He denies productive cough. He has had no abdominal pain or nausea. He reports that food is not very appetizing. He reports no recent changes in bowel habits. He states that he has been aiming to eat about 1,000-1,500 calories per day at home, he wonders if this has something to do with his anemia. He denies melena and hematochezia. He reports no hematuria. He has had known reported abnormal bruising or bleeding, to include epistaxis. He is not particularly sure how long he has been anemic. He recalls that years ago he may have had a mild anemia, and that a workup should be available from that period of time. REVIEW OF SYSTEMS: Otherwise negative with the exception of the patient reporting some lack of core strength as well as joint pain. PAST MEDICAL HISTORY 1. History of remote stroke. 2. Hypertension. 3. Rheumatoid arthritis. MEDICATIONS AND ALLERGIES: Reviewed per the [facility] record. Please refer to the MAR. SOCIAL HISTORY: There is reportedly a long history of tobacco and alcohol use. He had reportedly quit at the time of his prior stroke. FAMILY HISTORY: The patient is unaware of any hematologic concerns in his family members. PHYSICAL EXAMINATION VITAL SIGNS: Temperature 37.0, blood pressure 133/67, heart rate 89, respiratory rate 68, oxygen saturation is 91% on room air. GENERAL: Patient tis alert and oriented x3 and in no apparent distress sitting in a wheelchair at beside. He is interactive and pleasant. HEENT: Anicteric sclerae. No significant oropharyngeal lesions. LUNGS: Clear to auscultation anteriorly. HEART: Regular rate and rhythm. NEUROLOGIC: Grossly nonfocal, although I did not test his gait today. EXTREMITY: Multiple joint abnormalities consistent with rheumatoid arthritis. SKIN: No concerning rash or lesion. His surgical incision appears to healing nicely. LABORATORY STUDIES: Reviewed per the [facility] record. He had a hemoglobin in the range of 9.4-10, with a fairly normal platelet count as well as normal white blood cell counts. Of note, he has had an elevated bilirubin of 2.9 with a direct fraction being 0.7. ASSESSMENT/RECOMMENDATIONS 1. Normocytic anemia. I had a good visit with the patient today. I am not sure how long he has been anemic. The differential diagnosis for his anemia at this point is quite broad. This would include nutritional deficiency, possible primary bone marrow disorder, hemolysis (especially given his elevated bilirubin ) however this could be due to his recent transfusions. We discussed the need for an anemia workup in general terms today. I will ask for a peripheral smear review, as well as a reticular cyte count. He will have a nutritional evaluation with an iron panel and ferritin as well as vitamin B12 and folate. I will also send a copper level. He will undergo an SPEP with immuno fixation, as well as serum free light chain ratio and quantitative immunoglobulins. This would be a reasonable place to start for this gentleman. I do note his physical exam findings and history of rheumatoid arthritis. It is quite possible that he had presented with an anemia of chronic disease/inflammation due to his rheumatoid arthritis as well. Importantly, since his transfusion, his hemoglobin has been pretty stable. I would not anticipate the need for further transfusion. I will be available to review the results of his labs. Please feel free to call me on my cell phone at [phone] and I would happy to help. Also , I would be happy to follow up with this patient in my clinic after his discharge if this is felt to be helpful. Thank you for much, Dr. Rayo, for allowing me to take care of this pleasant patient. Please do not hesitate to call with questions or concerns. Copies to: Jackie Rayo MD [facility]
[2016-11-05 06:48] LABS: EOSINOPHILS 7.1 % (0.0-6.0); EOSINOPHILS# 0.5 X 10^3uL (0.0-0.4); HEMOGLOBIN 9.8 g/dL (14.0-18.0); LYMPHOCYTES 14.2 % (20.0-40.0); MEAN CELL VOLUME 89.1 fL (80.0-100.0); MEAN CORPUS. HGB CONCENTRATION 33.7 g/dL (32.0-36.0); MEAN PLATELET VOLUME 6.4 fL (7.4-10.4); MONOCYTES 8.1 % (2.0-10.0); MONOCYTES# 0.6 X 10^3uL (0.2-1.0); NEUTROPHILS 70.6 % (54.0-75.0); NEUTROPHILS# 5.1 X 10^3uL (2.6-6.7); PLATELET COUNT 542 X 10^3uL (130-440); RED CELL DISTRIBUTION WIDTH 14.9 % (11.5-14.5); WHITE BLOOD COUNT 7.2 X 10^3uL (3.9-10.7)
[2016-11-05 07:33] LABS: FERRITIN 432 ng/mL (18-464)
[2016-11-05 07:43] LABS: DIRECT COOMBS NEGATIVE (NEGATIVE); IRON 45 ug/dL (49-181)
[2016-11-05 07:44] LABS: TOTAL IRON BINDING CAPACITY 267 ug/mL (250-400); TRANSFERRIN 179 mg/dL (206-381); TRANSFERRIN SATURATION 17 % (14-50)
[2016-11-05] MEDS: ACETAMINOPHEN 500 MG TABLET PO SCH ×2 (08:14→21:10)
[2016-11-05] MEDS: ENOXAPARIN SODIUM 40 MG/0.4 ML SYR SUBCUT SCH (08:15)
[2016-11-05] MEDS: MULTIVITAMINS THERAPEUTIC 1 TABLET PO SCH (08:15)
[2016-11-05] MEDS: FAMOTIDINE 20 MG TABLET PO SCH ×2 (08:16→21:10)
[2016-11-05] MEDS: FOLIC ACID 1 MG TABLET PO SCH (08:16)
[2016-11-05] MEDS: ASCORBIC ACID 500 MG TABLET PO SCH ×2 (08:17→21:10)
[2016-11-05] MEDS: metoprolol SUCC ER 25 MG TABLET PO SCH (08:17)
[2016-11-05] MEDS: POTASSIUM CHLORIDE ER 20 MEQ TABLET PO SCH (08:17)
[2016-11-05] MEDS: BISACODYL 10 MG SUPP.RECT PR SCH ×2 (08:18→21:18)
[2016-11-05] MEDS: ARGININE 500 MG PO SCH (08:19)
[2016-11-05] MEDS: POLYETHYLENE GLYCOL 3350 17 GM POWD.PACK PO SCH ×2 (08:19→21:19)
[2016-11-05] MEDS ORDERED: SODIUM CHLORIDE ONE ×2 (10:38)
[2016-11-06 06:36] LABS: BLOOD UREA NITROGEN 10 mg/dL (9-20); CHLORIDE 103 mmol/L (98-107); EST GLOMERULAR FILTRATION RATE > 60 mL/min; GLUCOSE 89 mg/dL (70-100); POTASSIUM 3.1 mmol/L (3.5-5.1); SODIUM 141 mmol/L (137-145)
[2016-11-06] MEDS: FOLIC ACID 1 MG TABLET PO SCH (08:35)
[2016-11-06] MEDS: metoprolol SUCC ER 25 MG TABLET PO SCH (08:35)
[2016-11-06] MEDS: POTASSIUM CHLORIDE ER 20 MEQ TABLET PO SCH (08:35)
[2016-11-06] MEDS: FAMOTIDINE 20 MG TABLET PO SCH ×2 (08:35→20:56)
[2016-11-06] MEDS: MULTIVITAMINS THERAPEUTIC 1 TABLET PO SCH (08:35)
[2016-11-06] MEDS: BISACODYL 10 MG SUPP.RECT PR SCH ×2 (08:35→20:47)
[2016-11-06] MEDS: ASCORBIC ACID 500 MG TABLET PO SCH ×2 (08:35→20:57)
[2016-11-06] MEDS: ENOXAPARIN SODIUM 40 MG/0.4 ML SYR SUBCUT SCH (08:36)
[2016-11-06] MEDS: ACETAMINOPHEN 500 MG TABLET PO SCH ×2 (08:36→20:57)
[2016-11-06] MEDS: POLYETHYLENE GLYCOL 3350 17 GM POWD.PACK PO SCH ×2 (08:37→20:48)
[2016-11-06] MEDS: ARGININE 500 MG PO SCH (08:41)
[2016-11-06] MEDS ORDERED: POTASSIUM CHLORIDE ER 20 MEQ TABLET PO SCH (17:00)
[2016-11-06 19:03] LABS: COPPER SEE COMMENTS (()); IMMUNOGLOB FREE LIGHT CHAINS SEE COMMENTS (()); RETICULOCYTE SEE COMMENTS (())
[2016-11-07 06:24] LABS: HEMATOCRIT 30.8 % (42.0-54.0); HEMOGLOBIN 10.3 g/dL (14.0-18.0)
[2016-11-07 06:31] LABS: BLOOD UREA NITROGEN 10 mg/dL (9-20); CHLORIDE 104 mmol/L (98-107); EST GLOMERULAR FILTRATION RATE > 60 mL/min; GLUCOSE 92 mg/dL (70-100); POTASSIUM 3.3 mmol/L (3.5-5.1); SODIUM 142 mmol/L (137-145)
[2016-11-07] MEDS: ARGININE 500 MG PO SCH (08:36)
[2016-11-07] MEDS: BISACODYL 10 MG SUPP.RECT PR SCH ×2 (08:36→20:29)
[2016-11-07] MEDS: ACETAMINOPHEN 500 MG TABLET PO SCH ×2 (08:37→20:32)
[2016-11-07] MEDS: POTASSIUM CHLORIDE ER 20 MEQ TABLET PO SCH (08:37)
[2016-11-07] MEDS: POLYETHYLENE GLYCOL 3350 17 GM POWD.PACK PO SCH ×2 (08:37→20:29)
[2016-11-07] MEDS: FAMOTIDINE 20 MG TABLET PO SCH ×2 (08:38→20:35)
[2016-11-07] MEDS: MULTIVITAMINS THERAPEUTIC 1 TABLET PO SCH (08:38)
[2016-11-07] MEDS: FOLIC ACID 1 MG TABLET PO SCH (08:38)
[2016-11-07] MEDS: ASCORBIC ACID 500 MG TABLET PO SCH ×2 (08:38→20:35)
[2016-11-07] MEDS: metoprolol SUCC ER 25 MG TABLET PO SCH (08:38)
--- NOTE | 2016-11-07 08:52 | PROGRESS NOTE: IM SOAP ---
IM: PN Subjective General: no fatigue (His enrgy level continues to improve.), no confusion, no good appetite (But this is his baseline.), no pain (No RLE pain s/p ORIF now with Tylenol.), no fever, no chills HEENT: no headache Cardiovascular: no chest pain, no dizziness Respiratory: no cough, no SOB Gastrointestinal: diarrhea (He continues to have loose stools), no abdominal pain, no bloating, no nausea, no vomiting Genitourinary: no flank pain Musculoskeletal: swelling (Improving.), weakness (Baseline right sided, but also left side weakness from deconditioning, did ambulate some in halls, needs help to eat. ), no pain Integumentary: other (Chronic BLE venous insufficiency changes. ) Neurological: limb weakness (Chronic R paresis s/p CVA.) IM: PN Objective Exam - I&O/Vital Signs I&O: Intake & Output 11/06/16 11/07/16 11/07/16 21:59 05:59 13:59 Intake Total 735 300 Output Total 560 655 Balance 175 -355 Weight 83 kg Intake: Oral 735 300 Output: Urine 560 655 Other: Urine Appearance Clear Clear Urine Color Light Ina Light Ina Stool Size Moderate Stool Characteristics Soft Liquid Mucoid Brown Voiding Method Urinal Urinal # Voids 3 # Bowel Movements 2 Vital Signs: Last Vital Signs Temp 36.8 C 11/07/16 05:36 Pulse 73 11/07/16 05:36 Resp 20 11/07/16 05:36 BP 138/76 11/07/16 05:36 Pulse Ox 91 11/07/16 05:36 Oxygen Delivery Method Room Air - Constitutional General appearance: Present: average body habitus, cooperative, other (Sitting up in his bed in NAD.). Absent: acute distress - Head Head exam: Present: atraumatic, normal inspection - Eye Eye exam: Present: PERRL. Absent: conjunctival injection, EOMI - ENT ENT exam: Present: mucous membranes moist, normal oropharynx, other (Vey poor denmtion.) - Neck Neck exam: Present: normal inspection - Respiratory Respiratory exam: Present: clear, other (Improved aeration throughout. No bibasilar rales.). Absent: accessory muscle use - Cardiovascular Cardiovascular exam: Present: RRR, other (No ectopy today.). Absent: gallop, rubs, systolic murmur - GI/Abdominal GI/Abdominal exam: Present: normal bowel sounds, soft. Absent: distended, tenderness - Extremities Exam Extremities exam: Present: edema (trace edema left, 1-2 + on right), other ( Pigmented; atrophic; loss of hair c/w chronic venous stasis changes; several eschars RLE. ). Absent: tenderness - Neurological Exam Neurological exam: Present: alert, oriented X3 - Psychiatric Psychiatric exam: Present: normal affect, normal mood - Skin Skin exam: Present: other (chronic BLE venous stasis changes) - Allied Health Notes Allied health notes reviewed: case management, nursing (Also dietary notes. ), OT, PT, social work (I d/w Edyta Mireles RN regarding D/C planning) - Lab Labs: Laboratory Last Values WBC 7.2 X 10^3uL (3.9-10.7) 11/05/16 06:20 RBC 3.26 X 10^6uL (4.20-6.10) L 11/05/16 06:20 Hgb 10.3 g/dL (14.0-18.0) L 11/07/16 05:00 Hct 30.8 % (42.0-54.0) L 11/07/16 05:00 MCV 89.1 fL (80.0-100.0) 11/05/16 06:20 MCH 30.0 pg (29.0-35.0) 11/05/16 06:20 MCHC 33.7 g/dL (32.0-36.0) 11/05/16 06:20 RDW 14.9 % (11.5-14.5) H 11/05/16 06:20 Plt Count 542 X 10^3uL (130-440) H 11/05/16 06:20 MPV 6.4 fL (7.4-10.4) L 11/05/16 06:20 Total Counted 100 10/30/16 05:40 Neutrophils % 70.6 % (54.0-75.0) 11/05/16 06:20 Neutrophils % (Manual) 67 % (54.0-75.0) 10/30/16 05:40 Lymphocytes % 14.2 % (20.0-40.0) L 11/05/16 06:20 Lymphocytes % (Manual) 18 % (20.0-40.0) L 10/30/16 05:40 Monocytes % (Manual) 8 % (2.0-10.0) 10/30/16 05:40 Eosinophils % 7.1 % (0.0-6.0) H 11/05/16 06:20 Eosinophils % (Manual) 7 % (0.0-6.0) H 10/30/16 05:40 Basophils % 0.0 % (0.0-2.0) 11/05/16 06:20 Neutrophils # 5.1 X 10^3uL (2.6-6.7) 11/05/16 06:20 Lymphocytes # 1.0 X 10^3uL (0.8-3.8) 11/05/16 06:20 Monocytes 8.1 % (2.0-10.0) 11/05/16 06:20 Monocytes # 0.6 X 10^3uL (0.2-1.0) 11/05/16 06:20 Eosinophils # 0.5 X 10^3uL (0.0-0.4) H 11/05/16 06:20 Basophils # 0.0 X 10^3uL (0.0-0.1) 11/05/16 06:20 Platelet Estimate Adequate 10/30/16 05:40 Anisocytosis 10-19% of cells 10/30/16 05:40 Retic Count See comments (()) 11/05/16 06:30 Sodium 142 mmol/L (137-145) 11/07/16 05:00 Potassium 3.3 mmol/L (3.5-5.1) L 11/07/16 05:00 Chloride 104 mmol/L (98-107) 11/07/16 05:00 Carbon Dioxide 29 mmol/L (22-30) 11/07/16 05:00 BUN 10 mg/dL (9-20) 11/07/16 05:00 Creatinine 0.5 mg/dL (0.7-1.3) L 11/07/16 05:00 GFR Calculation > 60 mL/min 11/07/16 05:00 Glucose 92 mg/dL (70-100) 11/07/16 05:00 Calcium 8.0 mg/dL (8.4-10.2) L 11/07/16 05:00 Iron 45 ug/dL (49-181) L 11/05/16 06:20 TIBC 267 ug/mL (250-400) 11/05/16 06:20 Transferrin 179 mg/dL (206-381) L 11/05/16 06:20 Transferrin % Sat 17 % (14-50) 11/05/16 06:20 Ferritin 432 ng/mL (18-464) 11/05/16 06:20 Total Bilirubin 2.7 mg/dL (0.2-1.3) H 11/01/16 06:00 Direct Bilirubin 0.7 mg/dL (0.0-0.4) H 10/30/16 05:40 AST 41 U/L (17-59) 11/01/16 06:00 ALT 53 U/L (21-72) 11/01/16 06:00 Alkaline Phosphatase 58 U/L (38-126) 11/01/16 06:00 Prot Electrophoresis See comments (()) 11/05/16 06:30 Total Protein 6.3 g/dL (6.3-8.2) 11/01/16 06:00 Albumin 2.8 g/dL (3.5-5.0) L 11/01/16 06:00 Albumin/Globulin Ratio 0.8 11/01/16 06:00 Vitamin B12 505 pg/mL (230-1050) 11/05/16 06:30 Folic Acid 13.0 ng/mL (3.0-16.0) 11/05/16 06:30 Urine Color Ina A 10/29/16 13:00 Urine Appearance Clear 10/29/16 13:00 Urine pH 5.5 (5-7) 10/29/16 13:00 Ur Specific [place] 1.020 (0.001-1.035) 10/29/16 13:00 Urine Protein 100mg/dl (2+) (NEG - TRACE) A 10/29/16 13:00 Urine Ketones 5mg/dl (NEGATIVE) A 10/29/16 13:00 Urine Blood Negative (NEGATIVE) 10/29/16 13:00 Urine Nitrate Negative (NEGATIVE) 10/29/16 13:00 Urine Bilirubin 0.5 mg/100ml (1+) (NEGATIVE) A 10/29/16 13:00 Urine Urobilinogen 8mg/dl (NEG-1mg/dL) A 10/29/16 13:00 Ur Leukocyte Esterase Negative (NEGATIVE) 10/29/16 13:00 Urine RBC 0-5/hpf (0-5/hpf) 10/29/16 13:00 Urine WBC 0-4/hpf (0-4/hpf) 10/29/16 13:00 Ur Squamous Epith Cells None seen (<= 15/hpf) 10/29/16 13:00 Calcium Oxalate Crystal Many (Occasional) 10/29/16 13:00 Amorphous Sediment None seen (Up to 25%) 10/29/16 13:00 Urine Bacteria <10 organisms/hpf (<10/hpf) 10/29/16 13:00 Urine Mucus None seen (Up to 25%) 10/29/16 13:00 Urine Glucose Normal (NEGATIVE) 10/29/16 13:00 Copper See comments (()) 11/05/16 06:30 Immunoglobulins G,A,M See comments (()) 11/05/16 06:30 Free [place]/Lambda Ratio See comments (()) 11/05/16 06:30 Direct Antiglob Test Negative (NEGATIVE) 11/05/16 06:20 Assessment and Plan - Date of Encounter Date of Encounter: 11/07/16 (1) Supracondylar fracture of right femur Status: Acute Assessment and plan: He is s/p ORIF R femur 10/23/16. [place] were removed and Lovenox stopped at 2 weeks post-op, yesterday. He is overall doing well with slow progress. He has a care conference today. PT, OT, SW. CM, and I all recommend that Josse stay here in swing bed forat least a few more days to improved transfers and getting back to his baseline. He will most likely ultimately be transferred to the [facility] with the goal of returning home with caregivers. He is willing to have more caregivers at home. Current Visit: Yes (2) Anemia Status: Acute Assessment and plan: He is s/p a total of 4 units pRBCs. He had significant blood loss with fracture and ORIF. He also had evidence of mild anemia with most recent CBC in 2010. He most likely has long-standing iron deficiency from his poor nutrition at home. His iron studies here are consistent with iron deficiency. Stools have been Hemoccult negative. Appreciate Dr. Pugh's input. Multiple additional labs pending. Repeat iron studies improved. Will F/U with Dr. Pugh when at [facility]. Current Visit: Yes (3) Cholecystitis Status: Acute Assessment and plan: He developed abnormal LFTs after admission with CT abdomen showing multiple gallstones and CCD dilation. He is at high risk cholangitis. He does not desire further intervention with ERCP, stenting, or surgery. Asymptomatic. Watchful waiting for now. LFTs now normalized. Current Visit: Yes (4) History of CVA (cerebrovascular accident) Status: Chronic Assessment and plan: Remote CVA with R-sided hemiparesis. He uses a wheelchair for mobility. He will require further swing bed here and then most likely transfer to [facility]. Begin BASA after 2 weeks of Lovenox dosing. Current Visit: Yes (5) Hypertension Status: Chronic Assessment and plan: He had weaned himself off of BP meds at home because BP too low. BP quite elevated upon admission after fracture. Now, BPs stable on low-dose BB for PVCs. Current Visit: Yes (6) PVC (premature ventricular contraction) Status: Acute Assessment and plan: He developed frequent PVCs which has now resolved. Continue low-dose metoprolol. Current Visit: Yes (7) Rheumatoid arthritis Status: Chronic Assessment and plan: Her has long-standing RA which has been remarkably stable. He manages his pain with just Tylenol. Current Visit: No - Time Spent With Patient Total time spent with greater than 50% in coordination of care (as documented) at patient's floor/unit and/or counseling patient: Estimated anticipated discharge: 5 days Quality Questions - VTE Prophylaxis Assessment VTE Present on Admission?: No Patient at risk for venous thromboembolism?: Yes VTE Risk Level: Moderate Risk Pharmaceutical VTE prophylaxis contraindication reason: N/A- VTE prophylaxsis ordered Mechanical VTE prophylaxis contraindication reason: N/A- VTE prophylaxsis ordered (1) Supracondylar fracture of right femur Qualifiers: Encounter type: subsequent encounter Fracture type: closed (2) Anemia Qualifiers: Anemia type: iron deficiency Iron deficiency anemia type: unspecified iron deficiency Qualified Code(s): D50.9 - Iron deficiency anemia, unspecified (5) Hypertension Qualifiers: Hypertension type: essential hypertension Qualified Code(s): I10 - Essential (primary) hypertension
[2016-11-07] MEDS ORDERED: POTASSIUM CHLORIDE ER 20 MEQ TABLET PO SCH (10:30)
[2016-11-08 07:08] LABS: BLOOD UREA NITROGEN 11 mg/dL (9-20); CALCIUM 8.3 mg/dL (8.4-10.2); CHLORIDE 107 mmol/L (98-107); EST GLOMERULAR FILTRATION RATE > 60 mL/min; GLUCOSE 87 mg/dL (70-100); POTASSIUM 3.7 mmol/L (3.5-5.1); SODIUM 143 mmol/L (137-145)
[2016-11-08] MEDS: ARGININE 500 MG PO SCH (08:22)
[2016-11-08] MEDS: BISACODYL 10 MG SUPP.RECT PR SCH ×2 (08:35→20:38)
[2016-11-08] MEDS: POLYETHYLENE GLYCOL 3350 17 GM POWD.PACK PO SCH ×2 (08:35→20:38)
[2016-11-08] MEDS: FAMOTIDINE 20 MG TABLET PO SCH ×2 (08:51→20:40)
[2016-11-08] MEDS: POTASSIUM CHLORIDE ER 20 MEQ TABLET PO SCH (08:51)
[2016-11-08] MEDS: FOLIC ACID 1 MG TABLET PO SCH (08:52)
[2016-11-08] MEDS: ACETAMINOPHEN 500 MG TABLET PO SCH ×2 (08:52→20:40)
[2016-11-08] MEDS: MULTIVITAMINS THERAPEUTIC 1 TABLET PO SCH (08:52)
[2016-11-08] MEDS: ASCORBIC ACID 500 MG TABLET PO SCH ×2 (08:52→20:40)
[2016-11-08] MEDS: metoprolol SUCC ER 25 MG TABLET PO SCH (08:52)
[2016-11-08 16:18] LABS: RED BLOOD COUNT 3.26 X 10^6uL (4.20-6.10)
[2016-11-09] MEDS: ASCORBIC ACID 500 MG TABLET PO SCH ×2 (08:46→20:30)
[2016-11-09] MEDS: ACETAMINOPHEN 500 MG TABLET PO SCH ×2 (08:46→20:30)
[2016-11-09] MEDS: POTASSIUM CHLORIDE ER 20 MEQ TABLET PO SCH (08:46)
[2016-11-09] MEDS: MULTIVITAMINS THERAPEUTIC 1 TABLET PO SCH (08:46)
[2016-11-09] MEDS: FOLIC ACID 1 MG TABLET PO SCH (08:46)
[2016-11-09] MEDS: FAMOTIDINE 20 MG TABLET PO SCH ×2 (08:47→20:29)
[2016-11-09] MEDS: POLYETHYLENE GLYCOL 3350 17 GM POWD.PACK PO SCH ×2 (08:47→20:29)
[2016-11-09] MEDS: ARGININE 500 MG PO SCH (08:47)
[2016-11-09] MEDS: BISACODYL 10 MG SUPP.RECT PR SCH ×2 (08:47→20:29)
[2016-11-09] MEDS: metoprolol SUCC ER 25 MG TABLET PO SCH (08:48)
[2016-11-10 06:36] LABS: HEMATOCRIT 32.8 % (42.0-54.0); HEMOGLOBIN 10.9 g/dL (14.0-18.0)
[2016-11-10 06:39] LABS: BLOOD UREA NITROGEN 10 mg/dL (9-20); CALCIUM 8.4 mg/dL (8.4-10.2); CHLORIDE 106 mmol/L (98-107); EST GLOMERULAR FILTRATION RATE > 60 mL/min; GLUCOSE 87 mg/dL (70-100); POTASSIUM 3.9 mmol/L (3.5-5.1); SODIUM 145 mmol/L (137-145)
--- NOTE | 2016-11-10 08:50 | PROGRESS NOTE: IM SOAP ---
IM: PN Subjective General: no fatigue (He feels stronger every day.), no confusion (HIs postop confusion/sundowning has now cmompletely resolved. ), no good appetite (But this is his baseline.), no pain (No RLE pain s/p ORIF now with Tylenol.), no fever, no chills HEENT: no headache Cardiovascular: no chest pain, no dizziness Respiratory: no cough, no SOB Gastrointestinal: diarrhea (He continues to have loose stools), no abdominal pain, no bloating, no nausea, no vomiting Genitourinary: no flank pain Musculoskeletal: swelling (The swelling of his R thigh has concentrated to his quadriceps, but nontender.), weakness (Chronic ), no pain (Chronic R hemiparesis s/p CVA. ) Integumentary: other (Chronic BLE venous insufficiency changes. ) Neurological: limb weakness (Chronic R paresis s/p CVA.) IM: PN Objective Exam - I&O/Vital Signs I&O: Intake & Output 11/09/16 11/10/16 11/10/16 21:59 05:59 13:59 Intake Total 660 200 Output Total 400 500 Balance 260 -300 Weight 77.5 kg Intake: Oral 660 200 Output: Urine 400 500 Other: Urine Appearance Clear Urine Color Light Ina Stool Size Moderate Small Stool Characteristics Liquid Mucoid Brown Voiding Method Urinal Urinal # Voids 3 # Bowel Movements 1 Vital Signs: Last Vital Signs Temp 36.7 C 11/10/16 06:13 Pulse 71 11/10/16 06:13 Resp 17 11/10/16 06:13 BP 135/73 11/10/16 06:13 Pulse Ox 92 11/10/16 06:13 Oxygen Delivery Method Room Air - Constitutional General appearance: Present: average body habitus, cooperative, other (Sitting up in his wheelchair in NAD. He appears better than he has looked in many years.). Absent: acute distress - Head Head exam: Present: atraumatic, normal inspection - Eye Eye exam: Present: EOMI, PERRL. Absent: conjunctival injection - ENT ENT exam: Present: mucous membranes moist, normal oropharynx, other (Vey poor dentition. Missing teeth. ) - Neck Neck exam: Present: normal inspection - Respiratory Respiratory exam: Present: clear, other (Improved aeration throughout. No bibasilar rales. Clear.). Absent: accessory muscle use - Cardiovascular Cardiovascular exam: Present: RRR, other (No ectopy today.). Absent: gallop, rubs, systolic murmur - GI/Abdominal GI/Abdominal exam: Present: normal bowel sounds, soft. Absent: distended, tenderness - Extremities Exam Extremities exam: Present: edema (Trace edema left, 1+ on right which is less tense. Edema follows quadriceps muscle and nontender.), other (Pigmented; atrophic; loss of hair c/w chronic venous stasis changes; several eschars RLE. Suture site c/d/i with dry, peeling skin.). Absent: calf tenderness - Neurological Exam Neurological exam: Present: alert, oriented X3 - Psychiatric Psychiatric exam: Present: normal affect, normal mood - Skin Skin exam: Present: other (chronic BLE venous stasis changes) - Allied Health Notes Allied health notes reviewed: case management, nursing (Also dietary notes. ), OT, PT, social work (I d/w all staff at morning rounds regarding D/C planning.) - Lab Labs: Laboratory Last Values WBC 7.2 X 10^3uL (3.9-10.7) 11/05/16 06:20 RBC 3.26 X 10^6uL (4.20-6.10) L 11/05/16 06:20 Hgb 10.9 g/dL (14.0-18.0) L 11/10/16 05:55 Hct 32.8 % (42.0-54.0) L 11/10/16 05:55 MCV 89.1 fL (80.0-100.0) 11/05/16 06:20 MCH 30.0 pg (29.0-35.0) 11/05/16 06:20 MCHC 33.7 g/dL (32.0-36.0) 11/05/16 06:20 RDW 14.9 % (11.5-14.5) H 11/05/16 06:20 Plt Count 542 X 10^3uL (130-440) H 11/05/16 06:20 MPV 6.4 fL (7.4-10.4) L 11/05/16 06:20 Total Counted 100 10/30/16 05:40 Neutrophils % 70.6 % (54.0-75.0) 11/05/16 06:20 Neutrophils % (Manual) 67 % (54.0-75.0) 10/30/16 05:40 Lymphocytes % 14.2 % (20.0-40.0) L 11/05/16 06:20 Lymphocytes % (Manual) 18 % (20.0-40.0) L 10/30/16 05:40 Monocytes % (Manual) 8 % (2.0-10.0) 10/30/16 05:40 Eosinophils % 7.1 % (0.0-6.0) H 11/05/16 06:20 Eosinophils % (Manual) 7 % (0.0-6.0) H 10/30/16 05:40 Basophils % 0.0 % (0.0-2.0) 11/05/16 06:20 Neutrophils # 5.1 X 10^3uL (2.6-6.7) 11/05/16 06:20 Lymphocytes # 1.0 X 10^3uL (0.8-3.8) 11/05/16 06:20 Monocytes 8.1 % (2.0-10.0) 11/05/16 06:20 Monocytes # 0.6 X 10^3uL (0.2-1.0) 11/05/16 06:20 Eosinophils # 0.5 X 10^3uL (0.0-0.4) H 11/05/16 06:20 Basophils # 0.0 X 10^3uL (0.0-0.1) 11/05/16 06:20 Platelet Estimate Adequate 10/30/16 05:40 Anisocytosis 10-19% of cells 10/30/16 05:40 Retic Count See comments (()) 11/05/16 06:30 Sodium 145 mmol/L (137-145) 11/10/16 05:55 Potassium 3.9 mmol/L (3.5-5.1) 11/10/16 05:55 Chloride 106 mmol/L (98-107) 11/10/16 05:55 Carbon Dioxide 27 mmol/L (22-30) 11/10/16 05:55 BUN 10 mg/dL (9-20) 11/10/16 05:55 Creatinine 0.6 mg/dL (0.7-1.3) L 11/10/16 05:55 GFR Calculation > 60 mL/min 11/10/16 05:55 Glucose 87 mg/dL (70-100) 11/10/16 05:55 Calcium 8.4 mg/dL (8.4-10.2) 11/10/16 05:55 Iron 45 ug/dL (49-181) L 11/05/16 06:20 TIBC 267 ug/mL (250-400) 11/05/16 06:20 Transferrin 179 mg/dL (206-381) L 11/05/16 06:20 Transferrin % Sat 17 % (14-50) 11/05/16 06:20 Ferritin 432 ng/mL (18-464) 11/05/16 06:20 Total Bilirubin 2.7 mg/dL (0.2-1.3) H 11/01/16 06:00 Direct Bilirubin 0.7 mg/dL (0.0-0.4) H 10/30/16 05:40 AST 41 U/L (17-59) 11/01/16 06:00 ALT 53 U/L (21-72) 11/01/16 06:00 Alkaline Phosphatase 58 U/L (38-126) 11/01/16 06:00 Prot Electrophoresis See comments (()) 11/05/16 06:30 Total Protein 6.3 g/dL (6.3-8.2) 11/01/16 06:00 Albumin 2.8 g/dL (3.5-5.0) L 11/01/16 06:00 Albumin/Globulin Ratio 0.8 11/01/16 06:00 Vitamin B12 505 pg/mL (230-1050) 11/05/16 06:30 Folic Acid 13.0 ng/mL (3.0-16.0) 11/05/16 06:30 Urine Color Ina A 10/29/16 13:00 Urine Appearance Clear 10/29/16 13:00 Urine pH 5.5 (5-7) 10/29/16 13:00 Ur Specific [place] 1.020 (0.001-1.035) 10/29/16 13:00 Urine Protein 100mg/dl (2+) (NEG - TRACE) A 10/29/16 13:00 Urine Ketones 5mg/dl (NEGATIVE) A 10/29/16 13:00 Urine Blood Negative (NEGATIVE) 10/29/16 13:00 Urine Nitrate Negative (NEGATIVE) 10/29/16 13:00 Urine Bilirubin 0.5 mg/100ml (1+) (NEGATIVE) A 10/29/16 13:00 Urine Urobilinogen 8mg/dl (NEG-1mg/dL) A 10/29/16 13:00 Ur Leukocyte Esterase Negative (NEGATIVE) 10/29/16 13:00 Urine RBC 0-5/hpf (0-5/hpf) 10/29/16 13:00 Urine WBC 0-4/hpf (0-4/hpf) 10/29/16 13:00 Ur Squamous Epith Cells None seen (<= 15/hpf) 10/29/16 13:00 Calcium Oxalate Crystal Many (Occasional) 10/29/16 13:00 Amorphous Sediment None seen (Up to 25%) 10/29/16 13:00 Urine Bacteria <10 organisms/hpf (<10/hpf) 10/29/16 13:00 Urine Mucus None seen (Up to 25%) 10/29/16 13:00 Urine Glucose Normal (NEGATIVE) 10/29/16 13:00 Copper See comments (()) 11/05/16 06:30 Immunoglobulins G,A,M See comments (()) 11/05/16 06:30 Free [place]/Lambda Ratio See comments (()) 11/05/16 06:30 Direct Antiglob Test Negative (NEGATIVE) 11/05/16 06:20 Assessment and Plan - Date of Encounter Date of Encounter: 11/10/16 (1) Supracondylar fracture of right femur Status: Acute Assessment and plan: He is s/p ORIF R femur 10/23/16. [place] were removed and Lovenox stopped at 2 weeks post-op. He is overall doing well with gradual progress. He has a care conference tomorrow. PT, OT, SW, CM, and I all recommend after group discussion this morning that Josse stay here in swing bed for the remainder of this week to continue to work on improved transfers and getting back to his baseline and then transfer to the [facility] with the goal of returning home with caregivers. He is willing to have more caregivers at home. Current Visit: Yes (2) Anemia Status: Acute Assessment and plan: He is s/p a total of 4 units pRBCs. He had significant blood loss with fracture and ORIF. He also had evidence of mild anemia with most recent CBC in 2010. He most likely has long-standing iron deficiency from his poor nutrition at home. His iron studies here are consistent with iron deficiency. Stools have been Hemoccult negative. Appreciate Dr. Pugh's input. Multiple additional labs pending. Repeat iron studies improved. Will F/U with Dr. Pugh when at [facility] later this month. Current Visit: Yes (3) Cholecystitis Status: Acute Assessment and plan: He developed abnormal LFTs after admission with CT abdomen showing multiple gallstones and CCD dilation. He is at high risk cholangitis. He does not desire further intervention with ERCP, stenting, or surgery. Asymptomatic. Watchful waiting for now. LFTs now normalized. Current Visit: Yes (4) History of CVA (cerebrovascular accident) Status: Chronic Assessment and plan: Remote CVA with R-sided hemiparesis. He uses a wheelchair for mobility. BASA started. Current Visit: Yes (5) Hypertension Status: Chronic Assessment and plan: He had weaned himself off of BP meds at home because BP too low. BP quite elevated upon admission after fracture. Now, BPs stable on low-dose BB for PVCs. Current Visit: Yes (6) PVC (premature ventricular contraction) Status: Acute Assessment and plan: He developed frequent PVCs which has now resolved. Continue low-dose metoprolol. Current Visit: Yes (7) Rheumatoid arthritis Status: Chronic Assessment and plan: Her has long-standing RA with multiple joint deformities which has been remarkably stable. He manages his pain with just Tylenol. Current Visit: No (8) Hypokalemia Status: Acute Assessment and plan: He has had low potassium for most of his inpatient and swing bed stay. he is taking KCl 40meQ daily with K normal today. Recheck BMP in 2 days. Current Visit: Yes - Time Spent With Patient Total time spent with greater than 50% in coordination of care (as documented) at patient's floor/unit and/or counseling patient: 16-24 minutes Estimated anticipated discharge: 4 days Quality Questions - VTE Prophylaxis Assessment VTE Present on Admission?: No Patient at risk for venous thromboembolism?: No VTE Risk Level: Moderate Risk Pharmaceutical VTE prophylaxis contraindication reason: N/A- VTE prophylaxsis ordered Mechanical VTE prophylaxis contraindication reason: N/A- VTE prophylaxsis ordered (1) Supracondylar fracture of right femur Qualifiers: Encounter type: subsequent encounter Fracture type: closed (2) Anemia Qualifiers: Anemia type: iron deficiency Iron deficiency anemia type: unspecified iron deficiency Qualified Code(s): D50.9 - Iron deficiency anemia, unspecified (5) Hypertension Qualifiers: Hypertension type: essential hypertension Qualified Code(s): I10 - Essential (primary) hypertension
[2016-11-10] MEDS: ARGININE 500 MG PO SCH (09:07)
[2016-11-10] MEDS: POLYETHYLENE GLYCOL 3350 17 GM POWD.PACK PO SCH ×2 (09:08→20:35)
[2016-11-10] MEDS: BISACODYL 10 MG SUPP.RECT PR SCH ×2 (09:08→20:35)
[2016-11-10] MEDS: FOLIC ACID 1 MG TABLET PO SCH (09:10)
[2016-11-10] MEDS: POTASSIUM CHLORIDE ER 20 MEQ TABLET PO SCH (09:10)
[2016-11-10] MEDS: FAMOTIDINE 20 MG TABLET PO SCH ×2 (09:11→20:36)
[2016-11-10] MEDS: MULTIVITAMINS THERAPEUTIC 1 TABLET PO SCH (09:12)
[2016-11-10] MEDS: ACETAMINOPHEN 500 MG TABLET PO SCH ×2 (09:12→20:36)
[2016-11-10] MEDS: ASCORBIC ACID 500 MG TABLET PO SCH ×2 (09:13→20:36)
[2016-11-10] MEDS: metoprolol SUCC ER 25 MG TABLET PO SCH (09:15)
[2016-11-11] MEDS: ARGININE 500 MG PO SCH (09:40)
[2016-11-11] MEDS: ACETAMINOPHEN 500 MG TABLET PO SCH ×2 (09:40→20:52)
[2016-11-11] MEDS: MULTIVITAMINS THERAPEUTIC 1 TABLET PO SCH (09:40)
[2016-11-11] MEDS: FAMOTIDINE 20 MG TABLET PO SCH ×2 (09:41→20:52)
[2016-11-11] MEDS: metoprolol SUCC ER 25 MG TABLET PO SCH (09:41)
[2016-11-11] MEDS: ASCORBIC ACID 500 MG TABLET PO SCH ×2 (09:43→20:51)
[2016-11-11] MEDS: FOLIC ACID 1 MG TABLET PO SCH (09:43)
[2016-11-11] MEDS: POTASSIUM CHLORIDE ER 20 MEQ TABLET PO SCH (09:43)
[2016-11-11] MEDS: BISACODYL 10 MG SUPP.RECT PR SCH ×2 (09:44→20:56)
[2016-11-11] MEDS: POLYETHYLENE GLYCOL 3350 17 GM POWD.PACK PO SCH ×2 (09:44→20:55)
--- NOTE | 2016-11-12 08:34 | PROGRESS NOTE: IM SOAP ---
IM: PN Subjective General: no fatigue (He feels stronger every day.), no confusion (He is back to his baseline with no confusion.), no good appetite (This is his baseline and he has had some improvement.), no pain (No RLE pain s/p ORIF now with Tylenol.), no fever, no chills HEENT: no headache Cardiovascular: no chest pain, no dizziness Respiratory: no cough, no SOB Gastrointestinal: diarrhea (He continues to have intermittent loose stools.), no abdominal pain, no bloating, no nausea, no vomiting Genitourinary: no flank pain Musculoskeletal: swelling (The swelling of his R thigh has concentrated to his quadriceps, but nontender.), weakness (Chronic ), no pain (Chronic R hemiparesis s/p CVA. ) Integumentary: other (Chronic BLE venous insufficiency changes. ) Neurological: limb weakness (Chronic R paresis s/p CVA.) IM: PN Objective Exam - I&O/Vital Signs I&O: Intake & Output 11/11/16 11/12/16 11/12/16 21:59 05:59 13:59 Intake Total 820 250 Output Total 150 450 Balance 670 -200 Weight 76.5 kg Intake: Oral 820 250 Output: Urine 150 450 Other: Urine Appearance Clear Clear Urine Color Yellow Light Ina Stool Size Smear Moderate Stool Characteristics Mucoid Soft Mucoid Brown Voiding Method Urinal Urinal # Voids 2 2 # Bowel Movements 1 2 Vital Signs: Last Vital Signs Temp 37.2 C 11/12/16 06:23 Pulse 69 11/12/16 06:23 Resp 14 11/12/16 06:23 BP 142/80 11/12/16 06:23 Pulse Ox 92 11/12/16 06:23 Oxygen Flow Rate 92 Oxygen Delivery Method Room Air - Constitutional General appearance: Present: average body habitus, cooperative, other (Sitting up in his wheelchair in NAD. He appears better than he has looked in many years.). Absent: acute distress - Head Head exam: Present: atraumatic, normal inspection - Eye Eye exam: Present: EOMI, PERRL. Absent: conjunctival injection - ENT ENT exam: Present: mucous membranes moist, normal oropharynx, other (Vey poor dentition. Missing teeth. ) - Neck Neck exam: Present: normal inspection - Respiratory Respiratory exam: Present: clear, other (Improved aeration throughout. No bibasilar rales. Clear.). Absent: accessory muscle use - Cardiovascular Cardiovascular exam: Present: RRR, other (No ectopy today.). Absent: gallop, rubs, systolic murmur - GI/Abdominal GI/Abdominal exam: Present: normal bowel sounds, soft. Absent: distended, tenderness - Extremities Exam Extremities exam: Present: edema (Trace edema left, 1+ on right which is less tense. RLE edema follows quadriceps muscle and nontender.), other (Pigmented; atrophic; loss of hair c/w chronic venous stasis changes; several eschars RLE. Suture site c/d/i with dry, peeling skin.). Absent: calf tenderness - Neurological Exam Neurological exam: Present: alert, oriented X3 - Psychiatric Psychiatric exam: Present: normal affect, normal mood - Skin Skin exam: Present: other (Chronic BLE venous stasis changes) - Allied Health Notes Allied health notes reviewed: case management, nursing (Also dietary notes. ), OT, PT, social work (I d/w all staff at morning rounds regarding D/C planning.) - Lab Labs: Laboratory Last Values WBC 7.2 X 10^3uL (3.9-10.7) 11/05/16 06:20 RBC 3.26 X 10^6uL (4.20-6.10) L 11/05/16 06:20 Hgb 10.9 g/dL (14.0-18.0) L 11/10/16 05:55 Hct 32.8 % (42.0-54.0) L 11/10/16 05:55 MCV 89.1 fL (80.0-100.0) 11/05/16 06:20 MCH 30.0 pg (29.0-35.0) 11/05/16 06:20 MCHC 33.7 g/dL (32.0-36.0) 11/05/16 06:20 RDW 14.9 % (11.5-14.5) H 11/05/16 06:20 Plt Count 542 X 10^3uL (130-440) H 11/05/16 06:20 MPV 6.4 fL (7.4-10.4) L 11/05/16 06:20 Total Counted 100 10/30/16 05:40 Neutrophils % 70.6 % (54.0-75.0) 11/05/16 06:20 Neutrophils % (Manual) 67 % (54.0-75.0) 10/30/16 05:40 Lymphocytes % 14.2 % (20.0-40.0) L 11/05/16 06:20 Lymphocytes % (Manual) 18 % (20.0-40.0) L 10/30/16 05:40 Monocytes % (Manual) 8 % (2.0-10.0) 10/30/16 05:40 Eosinophils % 7.1 % (0.0-6.0) H 11/05/16 06:20 Eosinophils % (Manual) 7 % (0.0-6.0) H 10/30/16 05:40 Basophils % 0.0 % (0.0-2.0) 11/05/16 06:20 Neutrophils # 5.1 X 10^3uL (2.6-6.7) 11/05/16 06:20 Lymphocytes # 1.0 X 10^3uL (0.8-3.8) 11/05/16 06:20 Monocytes 8.1 % (2.0-10.0) 11/05/16 06:20 Monocytes # 0.6 X 10^3uL (0.2-1.0) 11/05/16 06:20 Eosinophils # 0.5 X 10^3uL (0.0-0.4) H 11/05/16 06:20 Basophils # 0.0 X 10^3uL (0.0-0.1) 11/05/16 06:20 Platelet Estimate Adequate 10/30/16 05:40 Anisocytosis 10-19% of cells 10/30/16 05:40 Retic Count See comments (()) 11/05/16 06:30 Sodium 145 mmol/L (137-145) 11/10/16 05:55 Potassium 3.9 mmol/L (3.5-5.1) 11/10/16 05:55 Chloride 106 mmol/L (98-107) 11/10/16 05:55 Carbon Dioxide 27 mmol/L (22-30) 11/10/16 05:55 BUN 10 mg/dL (9-20) 11/10/16 05:55 Creatinine 0.6 mg/dL (0.7-1.3) L 11/10/16 05:55 GFR Calculation > 60 mL/min 11/10/16 05:55 Glucose 87 mg/dL (70-100) 11/10/16 05:55 Calcium 8.4 mg/dL (8.4-10.2) 11/10/16 05:55 Iron 45 ug/dL (49-181) L 11/05/16 06:20 TIBC 267 ug/mL (250-400) 11/05/16 06:20 Transferrin 179 mg/dL (206-381) L 11/05/16 06:20 Transferrin % Sat 17 % (14-50) 11/05/16 06:20 Ferritin 432 ng/mL (18-464) 11/05/16 06:20 Total Bilirubin 2.7 mg/dL (0.2-1.3) H 11/01/16 06:00 Direct Bilirubin 0.7 mg/dL (0.0-0.4) H 10/30/16 05:40 AST 41 U/L (17-59) 11/01/16 06:00 ALT 53 U/L (21-72) 11/01/16 06:00 Alkaline Phosphatase 58 U/L (38-126) 11/01/16 06:00 Prot Electrophoresis See comments (()) 11/05/16 06:30 Total Protein 6.3 g/dL (6.3-8.2) 11/01/16 06:00 Albumin 2.8 g/dL (3.5-5.0) L 11/01/16 06:00 Albumin/Globulin Ratio 0.8 11/01/16 06:00 Vitamin B12 505 pg/mL (230-1050) 11/05/16 06:30 Folic Acid 13.0 ng/mL (3.0-16.0) 11/05/16 06:30 Urine Color Ina A 10/29/16 13:00 Urine Appearance Clear 10/29/16 13:00 Urine pH 5.5 (5-7) 10/29/16 13:00 Ur Specific [place] 1.020 (0.001-1.035) 10/29/16 13:00 Urine Protein 100mg/dl (2+) (NEG - TRACE) A 10/29/16 13:00 Urine Ketones 5mg/dl (NEGATIVE) A 10/29/16 13:00 Urine Blood Negative (NEGATIVE) 10/29/16 13:00 Urine Nitrate Negative (NEGATIVE) 10/29/16 13:00 Urine Bilirubin 0.5 mg/100ml (1+) (NEGATIVE) A 10/29/16 13:00 Urine Urobilinogen 8mg/dl (NEG-1mg/dL) A 10/29/16 13:00 Ur Leukocyte Esterase Negative (NEGATIVE) 10/29/16 13:00 Urine RBC 0-5/hpf (0-5/hpf) 10/29/16 13:00 Urine WBC 0-4/hpf (0-4/hpf) 10/29/16 13:00 Ur Squamous Epith Cells None seen (<= 15/hpf) 10/29/16 13:00 Calcium Oxalate Crystal Many (Occasional) 10/29/16 13:00 Amorphous Sediment None seen (Up to 25%) 10/29/16 13:00 Urine Bacteria <10 organisms/hpf (<10/hpf) 10/29/16 13:00 Urine Mucus None seen (Up to 25%) 10/29/16 13:00 Urine Glucose Normal (NEGATIVE) 10/29/16 13:00 Copper See comments (()) 11/05/16 06:30 Immunoglobulins G,A,M See comments (()) 11/05/16 06:30 Free [place]/Lambda Ratio See comments (()) 11/05/16 06:30 Direct Antiglob Test Negative (NEGATIVE) 11/05/16 06:20 Assessment and Plan - Date of Encounter Date of Encounter: 11/12/16 (1) Supracondylar fracture of right femur Status: Acute Assessment and plan: He is s/p ORIF R femur 10/23/16. [place] were removed and Lovenox stopped at 2 weeks post-op. He is overall doing well with gradual progress. PT, OT, SW, CM, and I all recommend that Josse stay here in swing bed for 2 more days to continue to work on improved transfers and getting back to his baseline and then transfer to the [facility] with the goal of returning home with caregivers on 11/14/16. He is willing to have more caregivers at home. Current Visit: Yes (2) Anemia Status: Acute Assessment and plan: He is s/p a total of 4 units pRBCs. He had significant blood loss with fracture and ORIF. He also had evidence of mild anemia with most recent CBC in 2010. He most likely has long-standing iron deficiency from his poor nutrition at home. His iron studies here are consistent with iron deficiency. Stools have been Hemoccult negative. Appreciate Dr. Pugh's input. Multiple additional labs pending. Repeat iron studies improved. Will F/U with Dr. Pugh when at [facility] later this month; appointment has been scheduled. Current Visit: Yes (3) Cholecystitis Status: Acute Assessment and plan: He developed abnormal LFTs after admission with CT abdomen showing multiple gallstones and CBD dilation. He is at high risk cholangitis. He does not desire further intervention with ERCP, stenting, or surgery. Asymptomatic. Watchful waiting for now. LFTs now normalized. Current Visit: Yes (4) History of CVA (cerebrovascular accident) Status: Chronic Assessment and plan: Remote CVA with R-sided hemiparesis. He uses a wheelchair for mobility. BASA started. Current Visit: Yes (5) Hypertension Status: Chronic Assessment and plan: He had weaned himself off of BP meds at home because BP too low. BP quite elevated upon admission after fracture. Now, BPs stable on low-dose BB for PVCs. Current Visit: Yes (6) PVC (premature ventricular contraction) Status: Acute Assessment and plan: He developed frequent PVCs which has now resolved. Continue low-dose metoprolol. Current Visit: Yes (7) Rheumatoid arthritis Status: Chronic Assessment and plan: Her has long-standing RA with multiple joint deformities which has been remarkably stable. He manages his pain with just Tylenol. Current Visit: No (8) Hypokalemia Status: Acute Assessment and plan: He has had low potassium for most of his inpatient and swing bed stay. He is taking KCl 40meQ daily with K normal today. Recheck BMP in 2 weeks at [facility]. Current Visit: Yes - Time Spent With Patient Total time spent with greater than 50% in coordination of care (as documented) at patient's floor/unit and/or counseling patient: 16-24 minutes Estimated anticipated discharge: 2 days Quality Questions - VTE Prophylaxis Assessment VTE Present on Admission?: No Patient at risk for venous thromboembolism?: Yes VTE Risk Level: Moderate Risk Pharmaceutical VTE prophylaxis contraindication reason: N/A- VTE prophylaxsis ordered Mechanical VTE prophylaxis contraindication reason: N/A- VTE prophylaxsis ordered (1) Supracondylar fracture of right femur Qualifiers: Encounter type: subsequent encounter Fracture type: closed (2) Anemia Qualifiers: Anemia type: iron deficiency Iron deficiency anemia type: unspecified iron deficiency Qualified Code(s): D50.9 - Iron deficiency anemia, unspecified (5) Hypertension Qualifiers: Hypertension type: essential hypertension Qualified Code(s): I10 - Essential (primary) hypertension (7) Rheumatoid arthritis Qualifiers: Rheumatoid arthritis location: multiple sites
--- NOTE | 2016-11-12 08:42 | DC SUMMARY: IM Note ---
Discharge Summary: IM/Peds Provider: Date of Admission: 10/29/16 Admitting Provider: TRISTEN TOVAR MD Attending Provider: TRISTEN TOVAR MD Discharging Provider: TRISTEN TOVAR MD Primary Care Provider: Discharge Date: 11/12/16 Consults: 10/29/16 14:48 Nutrition/Dietary Consult [CONS] Routine Reason: Swingbed Admission Protocol Podiatry Consult [CONS] Routine Reason: Onychomycosis. - Diagnosis (1) Supracondylar fracture of right femur Status: Acute Qualifiers: Encounter type: subsequent encounter Fracture type: closed (2) Anemia Status: Acute Qualifiers: Anemia type: iron deficiency Iron deficiency anemia type: unspecified iron deficiency Qualified Code(s): D50.9 - Iron deficiency anemia, unspecified (3) Cholecystitis Status: Acute (4) History of CVA (cerebrovascular accident) Status: Chronic (5) Hypertension Status: Chronic Qualifiers: Hypertension type: essential hypertension Qualified Code(s): I10 - Essential (primary) hypertension (6) PVC (premature ventricular contraction) Status: Acute (7) Rheumatoid arthritis Status: Chronic Qualifiers: Rheumatoid arthritis location: multiple sites (8) Hypokalemia Status: Acute - Time Spent with Patient Total time spent providing and/or coordinating discharge services: Time with patient DS: Greater than 30 minutes Discharge - Patient/Caregiver Discharge Instructions Activity Level: Wheelchair mobility. Diet: Regular. Follow up: HARLEEN BALL [MD] - 12/02/16 8:30 am (PT HAS AN APPT WITH DR TORRES IN THE [facility] ON 12/02/16 @ 08:30 AM ) TRISTEN TOVAR MD [Primary Care Provider] - 2 Weeks Overall discharge status: patient is progressing back to baseline Print Language: SLOVENIAN Disposition: ER LONGTERM FACILITY Discharge Summary Data - Medication History Medication History: Home Medications Acetaminophen [Feverall Supp] 650 mg RECTAL Q6H PRN 10/29/16 Acetaminophen [Tylenol Extra Strength] 1,000 mg PO Q6H PRN 10/29/16 Arginine [l-Arginine] 500 mg PO DAILY 10/29/16 Ascorbic Acid [Vitamin C*] 500 mg PO BID 10/29/16 Bisacodyl [Dulcolax] 10 mg RECTAL Q12H 10/29/16 Diphenhydramine [Benadryl*] 25 mg PO ONCE PRN 10/29/16 Enoxaparin Sodium [Lovenox] 40 mg SUBCUT DAILY 10/29/16 Folic Acid [Folic Acid*] 1 mg PO DAILY 10/29/16 Furosemide [Lasix Inj] 20 mg IV PRN PRN 10/29/16 Glycerin Adult [Glycerin Adult Supp] 1 supp.rect VT DAILY PRN 10/29/16 Hydrocodone/Acetaminophen [[place] 5-325 Tablet] 2 tab PO Q3H PRN 10/29/16 Magnesium Hydroxide [Milk of Magnesia*] 30 ml PO DAILY PRN 10/29/16 Multivitamins,Therapeutic [Thera] 1 udtab PO DAILY 10/29/16 Ondansetron HCl [Zofran] 4 mg IV Q4H PRN 10/29/16 Polyethylene Glycol 3350 [Miralax*] 1 packet PO BID 10/29/16 Potassium Chloride ER [K-Dur*] 2 tab PO ONCE 10/29/16 metoprolol SUCC ER [Toprol Xl*] 25 mg PO DAILY 10/29/16 Inpatient Medications 10/29/16 14:48 Mag-Al Plus Xs Susp [Maalox Liquid] 5 ml PO Q2H PRN Magnesium Hydroxide [Milk of Magnesia] 30 ml PO DAILY PRN Na Phos,M-B/Na Phos,Di-Ba [Fleet Enema] 133 ml VT ONCE PRN Polyethylene Glycol 3350 [miraLAX] 17 gm PO BID PRN 10/29/16 15:57 Glycerin Adult [Glycerin Adult Supp] 2 gm RECTAL DAILY PRN 10/29/16 16:04 Ondansetron Odt [Zofran Odt] 4 mg PO Q4H PRN 10/29/16 21:00 Ascorbic Acid [Vitamin C] 500 mg PO BID Bisacodyl [Dulcolax] 10 mg VT BID Polyethylene Glycol 3350 [miraLAX] 17 gm PO BID 10/30/16 09:00 Arginine [Arginine] 500 mg PO DAILY Folic Acid [Folate] 1 mg PO DAILY Multivitamins,Therapeutic [Thera] 1 tab PO DAILY metoprolol SUCC ER [topROL XL] 25 mg PO DAILY 10/30/16 21:00 Acetaminophen [Tylenol X-Strength] 1,000 mg PO BID 11/01/16 09:00 Famotidine [Pepcid] 20 mg PO BID 11/07/16 09:00 Potassium Chloride ER [K-Dur] 40 meq PO DAILY aspirin EC [Ecotrin 81 mg] 81 mg PO DAILY Procedures and tests throughout hospitalization: Completed Lab Orders 10/29/16 13:00 UA W/ MICRO -CULTURE IF IND [URINE] Routine 10/30/16 05:40 BASIC METABOLIC PANEL [CHEM] AMDRAW CBC W/ MANUAL DIFFERENTIAL [HEM] Routine HEPATIC PANEL [CHEM] AMDRAW 11/01/16 06:00 CBC AUTO DIF, MDIF/RMOR IF IND [HEM] AMDRAW cmp [COMPREHENSIVE METABOLIC PANEL] [CHEM] AMDRAW 11/04/16 05:45 HGB & HCT PANEL [HEM] AMDRAW 11/04/16 08:19 BMP [BASIC METABOLIC PANEL] [CHEM] Routine 11/05/16 06:20 CBC AUTO DIF, MDIF/RMOR IF IND [HEM] Stat DIRECT LUCY [HEM] Stat FERRITIN [CHEM] Stat IRON PANEL [CHEM] Stat 11/05/16 06:30 COPPER [SEND] Routine ELECTROPHORESIS, PROTEIN [SEND] Routine FOLATES [CHEM] Routine IMMUNOGLOB FREE LIGHT CHAINS [SEND] Routine IMMUNOGLOBULINS A,G,M [SEND] Routine RETICULOCYTE [SEND] Routine VITAMIN B12 [CHEM] Routine 11/06/16 06:03 BMP [BASIC METABOLIC PANEL] [CHEM] AMDRAW 11/07/16 05:00 BMP [BASIC METABOLIC PANEL] [CHEM] AMDRAW HEMATOCRIT [HEM] AMDRAW HEMOGLOBIN [HEM] AMDRAW 11/08/16 06:00 BMP [BASIC METABOLIC PANEL] [CHEM] AMDRAW 11/10/16 05:55 BMP [BASIC METABOLIC PANEL] [CHEM] AMDRAW HEMATOCRIT [HEM] AMDRAW HEMOGLOBIN [HEM] AMDRAW Completed Microbiology Orders 10/30/16 14:06 OCCULT BLOOD (1-3 SAMPLES) [RM] OCCULT Pending Orders 10/29/16 14:48 Admit: Swing Bed Routine Activity: Turn and position Q2H Cleanse minor skin tears w/NS DAILY Insert Donaldson Catheter IF BS>500MLS Obtain weight 0600 Oxygen by Nasal Cannula 2 L/MIN Resuscitation Status Routine Titrate Oxygen TITRATE B/W 88-92% Vital Signs QSHIFT VS Mag-Al Plus Xs Susp [Maalox Liquid] 5 ml PO Q2H PRN Magnesium Hydroxide [Milk of Magnesia] 30 ml PO DAILY PRN Na Phos,M-B/Na Phos,Di-Ba [Fleet Enema] 133 ml VT ONCE PRN Polyethylene Glycol 3350 [miraLAX] 17 gm PO BID PRN Physical Therapy Eval and Treatment [PT] Routine 10/29/16 14:50 Cover minor skin tears with DAILYPRN 10/29/16 14:57 Occupation Therapy Eval and Treat [OT] Routine 10/29/16 15:57 Glycerin Adult [Glycerin Adult Supp] 2 gm RECTAL DAILY PRN 10/29/16 16:04 Ondansetron Odt [Zofran Odt] 4 mg PO Q4H PRN 10/29/16 19:17 Intake and Output QSHIFT I&O 10/29/16 21:00 Ascorbic Acid [Vitamin C] 500 mg PO BID Bisacodyl [Dulcolax] 10 mg VT BID Polyethylene Glycol 3350 [miraLAX] 17 gm PO BID 10/29/16 Dinner Regular [DIET] 10/30/16 09:00 Arginine [Arginine] 500 mg PO DAILY Folic Acid [Folate] 1 mg PO DAILY Multivitamins,Therapeutic [Thera] 1 tab PO DAILY metoprolol SUCC ER [topROL XL] 25 mg PO DAILY 10/30/16 21:00 Acetaminophen [Tylenol X-Strength] 1,000 mg PO BID 10/31/16 08:53 Ensure Plus Supplement DAILY 11/01/16 09:00 Famotidine [Pepcid] 20 mg PO BID 11/06/16 08:46 Banana Flakes Supplement BID 11/07/16 09:00 Potassium Chloride ER [K-Dur] 40 meq PO DAILY aspirin EC [Ecotrin 81 mg] 81 mg PO DAILY 11/07/16 14:46 Occupational Therapy Plan of Care [OT] Routine - Impressions Josse was admitted with a R supracondylar fracture and underwent a successful ORIF on 10/23/16. Please see discharge summary from the hospital and admission to swing bed H&P for further details. He has done well with rehabilitation and is progressing back to his baseline. We have had multiple staff meetings and care conferences and have determined that he would benefit from further rehabilitation at [facility] with the goal of returning home with [facility] and ultimately private caregivers. Please also see dictated D/C summary from swing bed and admission to [facility] H&P. IM: Discharge Physical Exam - I&O/Vital Signs I&O: Intake & Output 11/11/16 11/12/16 11/12/16 21:59 05:59 13:59 Intake Total 820 250 Output Total 150 450 Balance 670 -200 Weight 76.5 kg Intake: Oral 820 250 Output: Urine 150 450 Other: Urine Appearance Clear Clear Urine Color Yellow Light Ina Stool Size Smear Moderate Stool Characteristics Mucoid Soft Mucoid Brown Voiding Method Urinal Urinal # Voids 2 2 # Bowel Movements 1 2 Vital Signs: Last Vital Signs Temp 37.2 C 11/12/16 06:23 Pulse 69 11/12/16 06:23 Resp 14 11/12/16 06:23 BP 142/80 11/12/16 06:23 Pulse Ox 92 11/12/16 06:23 Oxygen Flow Rate 92 Oxygen Delivery Method Room Air - Constitutional General appearance: Present: average body habitus, cooperative, other (Sitting up in his wheelchair in NAD. He appears better than he has looked in many years.). Absent: acute distress - Head Head exam: Present: atraumatic, normal inspection - Eye Eye exam: Present: EOMI, PERRL. Absent: conjunctival injection - ENT ENT exam: Present: mucous membranes moist, normal oropharynx, other (Vey poor dentition. Missing teeth. ) - Neck Neck exam: Present: normal inspection - Respiratory Respiratory exam: Present: clear, other (Improved aeration throughout. No bibasilar rales. Clear.). Absent: accessory muscle use - Cardiovascular Cardiovascular exam: Present: RRR, other (No ectopy today.). Absent: gallop, rubs, systolic murmur - GI/Abdominal GI/Abdominal exam: Present: normal bowel sounds, soft. Absent: distended, tenderness - Extremities Exam Extremities exam: Present: edema (Trace edema left, 1+ on right which is less tense. RLE edema follows quadriceps muscle and nontender.), other (Pigmented; atrophic; loss of hair c/w chronic venous stasis changes; several eschars RLE. Suture site c/d/i with dry, peeling skin.). Absent: calf tenderness - Neurological Exam Neurological exam: Present: alert, oriented X3 - Psychiatric Psychiatric exam: Present: normal affect, normal mood - Skin Skin exam: Present: other (Chronic BLE venous stasis changes) - Allied Health Notes Allied health notes reviewed: case management, nursing (Also dietary notes. ), OT, PT, social work (I d/w all staff at morning rounds regarding D/C planning.)
[2016-11-12] MEDS: ARGININE 500 MG PO SCH (08:55)
[2016-11-12] MEDS: BISACODYL 10 MG SUPP.RECT PR SCH ×2 (08:55→21:10)
[2016-11-12] MEDS: POLYETHYLENE GLYCOL 3350 17 GM POWD.PACK PO SCH ×2 (08:55→21:11)
[2016-11-12] MEDS: FAMOTIDINE 20 MG TABLET PO SCH ×2 (08:58→21:11)
[2016-11-12] MEDS: FOLIC ACID 1 MG TABLET PO SCH (08:58)
[2016-11-12] MEDS: MULTIVITAMINS THERAPEUTIC 1 TABLET PO SCH (08:58)
[2016-11-12] MEDS: POTASSIUM CHLORIDE ER 20 MEQ TABLET PO SCH (08:58)
[2016-11-12] MEDS: ACETAMINOPHEN 500 MG TABLET PO SCH ×2 (08:59→21:11)
[2016-11-12] MEDS: metoprolol SUCC ER 25 MG TABLET PO SCH (08:59)
[2016-11-12] MEDS: ASCORBIC ACID 500 MG TABLET PO SCH ×2 (09:00→21:10)
[2016-11-13] MEDS: POTASSIUM CHLORIDE ER 20 MEQ TABLET PO SCH (08:31)
[2016-11-13] MEDS: ACETAMINOPHEN 500 MG TABLET PO SCH ×2 (08:31→20:33)
[2016-11-13] MEDS: FOLIC ACID 1 MG TABLET PO SCH (08:32)
[2016-11-13] MEDS: ASCORBIC ACID 500 MG TABLET PO SCH ×2 (08:32→20:34)
[2016-11-13] MEDS: MULTIVITAMINS THERAPEUTIC 1 TABLET PO SCH (08:32)
[2016-11-13] MEDS: metoprolol SUCC ER 25 MG TABLET PO SCH (08:32)
[2016-11-13] MEDS: FAMOTIDINE 20 MG TABLET PO SCH ×2 (08:33→20:34)
[2016-11-13] MEDS: POLYETHYLENE GLYCOL 3350 17 GM POWD.PACK PO SCH ×2 (08:33→20:34)
[2016-11-13] MEDS: BISACODYL 10 MG SUPP.RECT PR SCH ×2 (08:33→20:34)
[2016-11-13] MEDS: ARGININE 500 MG PO SCH (08:36)
[2016-11-14 07:39] VITALS: BP 111/49; PULSE 69; RESP 22; TEMP 98.3; O2SAT 90
[2016-11-14] MEDS: ARGININE 500 MG PO SCH (09:39)
[2016-11-14] MEDS: ACETAMINOPHEN 500 MG TABLET PO SCH (09:39)
[2016-11-14] MEDS: BISACODYL 10 MG SUPP.RECT PR SCH (09:40)
[2016-11-14] MEDS: FAMOTIDINE 20 MG TABLET PO SCH (09:41)
[2016-11-14] MEDS: MULTIVITAMINS THERAPEUTIC 1 TABLET PO SCH (09:41)
[2016-11-14] MEDS: FOLIC ACID 1 MG TABLET PO SCH (09:41)
[2016-11-14] MEDS: ASCORBIC ACID 500 MG TABLET PO SCH (09:42)
[2016-11-14] MEDS: metoprolol SUCC ER 25 MG TABLET PO SCH (09:42)
[2016-11-14] MEDS: POLYETHYLENE GLYCOL 3350 17 GM POWD.PACK PO SCH (09:43)
[2016-11-14] MEDS: POTASSIUM CHLORIDE ER 20 MEQ TABLET PO SCH (09:43)
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
== END 2016-11-14 07:57 | DRG 560 ==
LOC: IN 10-29 15:42
PROVIDERS: ADMIT Family Medicine; ATTEND Family Medicine
DX: S72.451D Displaced supracondylar fracture without intracondylar extension of lower end of right femur, subsequent encounter for closed fracture with routine healing (principal); I69.351 Hemiplegia and hemiparesis following cerebral infarction affecting right dominant side; E46 Unspecified protein-calorie malnutrition; E87.6 Hypokalemia; D50.8 Other iron deficiency anemias; I10 Essential (primary) hypertension; K59.00 Constipation, unspecified; I87.2 Venous insufficiency (chronic) (peripheral); I49.3 Ventricular premature depolarization; M06.9 Rheumatoid arthritis, unspecified; K80.20 Calculus of gallbladder without cholecystitis without obstruction; R79.89 Other specified abnormal findings of blood chemistry; Z87.891 Personal history of nicotine dependence; F10.21 Alcohol dependence, in remission; Z79.899 Other long term (current) drug therapy
CPT/HCPCS: 36415; 80048; 80053; 80076; 81001; 82270; 82525; 82607; 82728; 82747; 82784; 83540; 83883; 84155; 84165; 84466; 85007; 85014; 85018; 85025; 85027; 85045; 86880; J1650; P9040-BL

== ENCOUNTER 2016-11-14 14:30 | Inpatient (IN) | payer MEDICARE ==
[2016-11-14 22:41] LABS: ALBUMIN 3.8 g/dL (3.5-5.0); BLOOD UREA NITROGEN 18 mg/dL (9-20); CALCIUM 8.9 mg/dL (8.4-10.2); CHLORIDE 106 mmol/L (98-107); EST GLOMERULAR FILTRATION RATE > 60 mL/min; GLUCOSE 141 mg/dL (70-100); POTASSIUM 4.5 mmol/L (3.5-5.1); SODIUM 145 mmol/L (137-145)
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
[2016-11-20 13:00] LABS: NIL (NEG) CONTROL SPOT COUNT 0; PANEL A SPOT COUNT 0; PANEL B SPOT COUNT 0; TSPOT TEST NEGATIVE
[2016-12-01 07:38] LABS: BLOOD UREA NITROGEN 12 mg/dL (9-20); CALCIUM 8.4 mg/dL (8.4-10.2); CHLORIDE 106 mmol/L (98-107); EST GLOMERULAR FILTRATION RATE > 60 mL/min; GLUCOSE 93 mg/dL (70-100); POTASSIUM 3.8 mmol/L (3.5-5.1); SODIUM 140 mmol/L (137-145)
== END 2016-12-06 | disposition still patient (30) | DRG 560 ==
LOC: PPLC 14:30
PROVIDERS: ADMIT Family Medicine; ATTEND Family Medicine
DX: S72.451D Displaced supracondylar fracture without intracondylar extension of lower end of right femur, subsequent encounter for closed fracture with routine healing (principal); E46 Unspecified protein-calorie malnutrition; I10 Essential (primary) hypertension; D50.8 Other iron deficiency anemias; I69.351 Hemiplegia and hemiparesis following cerebral infarction affecting right dominant side; M06.9 Rheumatoid arthritis, unspecified; K80.20 Calculus of gallbladder without cholecystitis without obstruction; I87.2 Venous insufficiency (chronic) (peripheral); Z87.891 Personal history of nicotine dependence; F10.21 Alcohol dependence, in remission; Z79.899 Other long term (current) drug therapy
CPT/HCPCS: 36415; 80048; 82040; 86481; G8978; G8979